=== PATIENT | female | born 1930 | race Caucasian/White ===

== ENCOUNTER 2017-10-15 18:21 | Inpatient (IN) | payer OTHER, MEDICARE ==
[2017-10-15] VITALS (14 sets, daily range): BP systolic 123–213; BP diastolic 60–123; PULSE 44–64; RESP 18–22; TEMP 89.9–95.5; O2SAT 91–100
[~2017-10-15] VITALS: Ht 154.9 cm; Wt 97.8 kg
[~2017-10-15 18:21] MED LIST: AMLO5TAB22 PO; ATEN-102 PO; ENOX40P SQ; LISI-363 PO; LORTA5 PO; Z.0.WALKERFRONT
[2017-10-15] MEDS ORDERED: SODIUM CHLORIDE 0.9% FLUSH 10 ML FLUSH IV FLUSH PRN ×2 (18:30→19:45)
[2017-10-15] MEDS ORDERED: LISI40TA PO (18:43)
[2017-10-15] MEDS ORDERED: AMLO5TAB2 PO (18:43)
[2017-10-15] MEDS ORDERED: ATEN25TA PO (18:43)
[2017-10-15 18:48] LABS: AUTOMATED NEUTROPHIL # 6.7 TH/MM3 (1.8-7.7); BASOPHIL % 0.3 % (0.0-2.0); EOSINOPHIL # 0.1 TH/MM3 (0-0.4); EOSINOPHIL % 0.6 % (0.0-4.0); HEMATOCRIT 42.8 % (35.0-46.0); HEMO FLAGS DIFF FINAL; LYMPH % 18.6 % (9.0-44.0); LYMPHOCYTE # 1.7 TH/MM3 (1.0-4.8); MEAN CELL VOLUME 87.1 FL (80.0-100.0); MEAN CORPUSCULAR HEMOGLOBIN 27.9 PG (27.0-34.0); MONO % 5.7 % (0.0-8.0); NEUT % 74.8 % (16.0-70.0); PLATELET COUNT 259 TH/MM3 (150-450); RED BLOOD COUNT 4.91 MIL/MM3 (4.00-5.30); RED CELL DISTRIBUTION WIDTH 14.1 % (11.6-17.2)
[2017-10-15 18:55] LABS: CHLORIDE 88 MEQ/L (98-107); POTASSIUM 4.2 MEQ/L (3.5-5.1); SODIUM (NA) 125 MEQ/L (136-145)
[2017-10-15 18:59] LABS: ANION GAP 14 MEQ/L (5-15); BICARBONATE 22.7 MEQ/L (21.0-32.0)
[2017-10-15 19:00] LABS: BLOOD UREA NITROGEN 22 MG/DL (7-18)
[2017-10-15 19:02] LABS: ALT (GPT) 32 U/L (10-53); AST (GOT) 35 U/L (15-37)
--- NOTE | 2017-10-15 19:02 | PD ---
HPI Chief Complaint: Seizure Time Seen by Provider: 18:25 Travel History International Travel<30 days: No Contact w/Intl Traveler<30days: No Traveled to known affect area: No History of Present Illness HPI 87-year-old female was found seizing by her family members who called 911. By the time paramedics arrived the seizure had stopped and patient was unconscious with a GCS of 3. As per the family's description it sounded like a generalized tonic-clonic seizure. Patient does not have history of seizures. Her mental status started to improve on route. When she arrived to the ER she was a GCS of 13. Vital signs were otherwise stable. Blood sugar was 145 as per EMS. Patient is not a reliable historian at this point. There are no family members currently to give additional history. Patient is on blood pressure medications. [facility] Past Medical History Narrative Medical List of her past medical, surgical, social and family history is reviewed from the nursing note. Arthritis: Yes Asthma: No Anxiety: Yes Depression: Yes Cancer: No Cardiovascular Problems: Yes (CHF) High Cholesterol: Yes Chemotherapy: No Chest Pain: No COPD: No Cerebrovascular Accident: No Dementia: Yes Diminished Hearing: Yes Endocrine: No Genitourinary: No Hypertension: Yes Immune Disorder: No Neurologic: Yes (DEMENTIA, SCHIZOPHRENIA, DEPRESSION) Psychiatric: Yes Reproductive: No Respiratory: Yes (shortness of breath) Migraines: No Radiation Therapy: No Schizophrenia: Yes Sleep Apnea: No Menopausal: Yes Past Surgical History Abdominal Surgery: Yes (APPENDECTOMY, CHOLECYSTECTOMY) AICD: No Appendectomy: Yes Arteriovenous Shunt: No Cholecystectomy: Yes Ear Surgery: No Endocrine Surgery: No Eye Surgery: No Genitourinary Surgery: No Gynecologic Surgery: No Insulin Pump: No Joint Replacement: Yes (bilateral knee ) Oral Surgery: No Pacemaker: No Social History Alcohol Use: Yes (WINE DAILY) Tobacco Use: No Substance Use: No Allergies-Medications (Allergen,Severity, Reaction): Coded Allergies: chlorpromazine (Unverified Allergy, Mild, 10/15/17) Comments List of allergies reviewed from the nursing note. Reported Meds & Prescriptions Reported Meds & Active Scripts Active Reported Atenolol 25 Mg Tab 12.5 Mg PO DAILY Amlodipine (Amlodipine Besylate) 5 Mg Tab 5 Mg PO DAILY Narrative Medication List of her home medications reviewed from the nursing note. Review of Systems ROS Limitations: Altered Mental Status Except as stated in HPI: all other systems reviewed are Neg Physical Exam Narrative GENERAL: Confused, garbled speech, anxious, mild distress, hard of hearing SKIN: Focused skin assessment warm/dry. HEAD: Atraumatic. Normocephalic. EYES: Pupils equal and round. No scleral icterus. No injection or drainage. ENT: No nasal bleeding or discharge. Mucous membranes pink and moist. NECK: Trachea midline. No JVD. CARDIOVASCULAR: Regular rate and rhythm. No murmur appreciated. RESPIRATORY: No accessory muscle use. Clear to auscultation. Breath sounds equal bilaterally. GASTROINTESTINAL: Abdomen soft, non-tender, nondistended. Hepatic and splenic margins not palpable. MUSCULOSKELETAL: No obvious deformities. No clubbing. No cyanosis. No edema. NEUROLOGICAL: GCS of 13, garbled speech but following commands, unable to move bilateral lower extremities. PSYCHIATRIC: Appropriate mood and affect; insight and judgment normal. Data Data Orders Orders Electrocardiogram (10/15/17 18:25) Complete Blood Count With Diff (10/15/17 18:25) Comprehensive Metabolic Panel (10/15/17 18:25) Creatine Kinase (Cpk) (10/15/17 18:25) Prothrombin Time / Inr (Pt) (10/15/17 18:25) Troponin I (10/15/17 18:25) Thyroid Stimulating Hormone (10/15/17 18:25) Urinalysis - C+S If Indicated (10/15/17 18:25) Blood Glucose (10/15/17 18:25) Ecg Monitoring (10/15/17 18:25) Iv Access Insert/Monitor (10/15/17 18:25) Oximetry (10/15/17 18:25) Sodium Chloride 0.9% Flush (Ns Flush) (10/15/17 18:30) Drug Screen, Random Urine (10/15/17 18:25) Alcohol (Ethanol) (10/15/17 18:25) Ct Brain W/O Iv Contrast(Rout) (10/15/17 ) Urinary Catheter Insert/Apply (10/15/17 18:25) Blood Culture (10/15/17 19:05) Lactic Acid (10/15/17 19:05) Piperacil-Tazo 4.5 Gm Premix (Zosyn 4.5 (10/15/17 19:15) Vancomycin Inj (Vancomycin Inj) (10/15/17 19:15) Sodium Chlor 0.9% 1000 Ml Inj (Ns 1000 M (10/15/17 19:15) Diphenhydramine Inj (Benadryl Inj) (10/15/17 19:45) Methylprednisolone So Succ Inj (Solumedr (10/15/17 19:45) Famotidine Inj (Pepcid Inj) (10/15/17 19:45) Sodium Chloride 0.9% Flush (Ns Flush) (10/15/17 19:45) Chest, Single Ap (10/15/17 ) Free Thyroxine (T4) (10/15/17 20:00) Free T3 (10/15/17 20:00) Admit Order (Ed Use Only) (10/15/17 ) Real Time Analyst / Telemetry JENNIFER.Q8H (10/15/17 20:23) Activity Oob With Assistance (10/15/17 20:23) Notify Dr: Other (10/15/17 20:23) Act Partial Throm Time (Ptt) (10/15/17 18:30) Magnesium (Mg) (10/15/17 18:30) Labs Laboratory Tests Test 10/15/17 18:30 10/15/17 19:00 10/15/17 19:41 White Blood Count 9.0 TH/MM3 Red Blood Count 4.91 MIL/MM3 Hemoglobin 13.7 GM/DL Hematocrit 42.8 % Mean Corpuscular Volume 87.1 FL Mean Corpuscular Hemoglobin 27.9 PG Mean Corpuscular Hemoglobin Concent 32.0 % Red Cell Distribution Width 14.1 % Platelet Count 259 TH/MM3 Mean Platelet Volume 7.0 FL Neutrophils (%) (Auto) 74.8 % Lymphocytes (%) (Auto) 18.6 % Monocytes (%) (Auto) 5.7 % Eosinophils (%) (Auto) 0.6 % Basophils (%) (Auto) 0.3 % Neutrophils # (Auto) 6.7 TH/MM3 Lymphocytes # (Auto) 1.7 TH/MM3 Monocytes # (Auto) 0.5 TH/MM3 Eosinophils # (Auto) 0.1 TH/MM3 Basophils # (Auto) 0.0 TH/MM3 CBC Comment DIFF FINAL Differential Comment Prothrombin Time 10.0 SEC Prothromb Time International Ratio 1.0 RATIO Activated Partial Thromboplast Time 36.6 SEC Blood Urea Nitrogen 22 MG/DL Creatinine 1.10 MG/DL Random Glucose 135 MG/DL Total Protein 7.6 GM/DL Albumin 3.3 GM/DL Calcium Level 9.6 MG/DL Magnesium Level 2.1 MG/DL Alkaline Phosphatase 71 U/L Aspartate Amino Transf (AST/SGOT) 35 U/L Alanine Aminotransferase (ALT/SGPT) 32 U/L Total Bilirubin 0.3 MG/DL Sodium Level 125 MEQ/L Potassium Level 4.2 MEQ/L Chloride Level 88 MEQ/L Carbon Dioxide Level 22.7 MEQ/L Anion Gap 14 MEQ/L Estimat Glomerular Filtration Rate 47 ML/MIN Total Creatine Kinase 114 U/L Troponin I LESS THAN 0.02 NG/ML Free Thyroxine 1.06 NG/DL Free Triiodothyronine (T3) pg/dL 1.79 PG/ML Thyroid Stimulating Hormone 3rd Gen 12.400 uIU/ML Ethyl Alcohol Level LESS THAN 3 MG/DL Urine Color YELLOW Urine Turbidity CLEAR Urine pH 6.0 Urine Specific [place] 1.014 Urine Protein 100 mg/dL Urine Glucose (UA) NEG mg/dL Urine Ketones NEG mg/dL Urine Occult Blood TRACE Urine Nitrite NEG Urine Bilirubin NEG Urine Leukocyte Esterase NEG Urine RBC 3-5 /hpf Urine WBC 0-2 /hpf Urine Squamous Epithelial Cells 6-8 /hpf Urine Amorphous Sediment FEW Urine Bacteria FEW /hpf Microscopic Urinalysis Comment CULT NOT INDICATED Urine Opiates Screen NEG Urine Barbiturates Screen NEG Urine Amphetamines Screen NEG Urine Benzodiazepines Screen NEG Urine Cocaine Screen NEG Urine Cannabinoids Screen NEG Lactic Acid Level 2.0 mmol/L [facility] Medical Decision Making Medical Screen Exam Complete: Yes Emergency Medical Condition: Yes Medical Record Reviewed: Yes Differential Diagnosis Twelve-lead EKG was reviewed by me. Normal sinus rhythm, normal axis, nonspecific ST-T wave changes. Heart rate of 66 bpm. Narrative Course 7:02 PM CBC is within normal limit. Patient has hyponatremia. Rest of the chemistry is pending. Ordered a CT scan of her head which is pending. Because patient had vomited at the scene and there is a risk of aspiration of ordered a chest x-ray as well. Case will be signed over to the oncoming ER physician. Procedures EKG Prior to Arrival: Yes Scripts Levothyroxine (Synthroid) 100 Mcg Tab 100 MCG PO DAILY@0600 for Thyroid Supplement, #30 TAB Prov: Alejandro Pérez MD 10/18/17 Sodium Chloride (Sodium Chloride) 1 Gram Tab 1 GM PO BID for Electrolyte Replacement, #60 TAB Prov: Alejandro Pérez MD 10/18/17 Navarro Grande MD Oct 15, 2017 19:02
[2017-10-15 19:03] LABS: GLOMERULAR FILTRATION RATE 47 ML/MIN (>89)
[2017-10-15 19:04] LABS: TOTAL BILIRUBIN ADULT 0.3 MG/DL (0.2-1.0)
[2017-10-15 19:05] LABS: ALKALINE PHOSPHATASE 71 U/L (45-117); CREATINE KINASE 114 U/L (26-192)
--- NOTE | 2017-10-15 19:13 | PD ---
Physical Exam Date Seen by Provider: Oct 15, 2017 Time Seen by Provider: 19:13 Narrative accepted in transfer of from Dr Grande GENERAL: Well-developed well-nourished elderly female in no acute distress no respiratory distress resting supine*: GCS 14--daughter bedside reports this is her normal mentation SKIN: Warm and dry. Very stages of ecchymosis and minor skin tears HEAD: Atraumatic. Normocephalic. EYES: Pupils equal and round. Extraocular muscles intact. No scleral icterus. No injection or drainage. ENT: No nasal bleeding or discharge. Mucous membranes pink and moist. Tonsillar edema with bruising bilaterally upper denture present lower dentition intact. Airway is patent. NECK: Trachea midline. No JVD. Supple. No meningismus. CARDIOVASCULAR: Regular rate and rhythm. RESPIRATORY: No accessory muscle use. Clear to auscultation. Breath sounds equal bilaterally. GASTROINTESTINAL: Abdomen soft, non-tender, nondistended. Hepatic and splenic margins not palpable. MUSCULOSKELETAL: Extremities without clubbing, cyanosis, or edema. No obvious deformities. NEUROLOGICAL: Awake and alert. GCS 14 (baseline per daughter). No obvious cranial nerve deficits. Motor grossly within normal limits. Five out of 5 muscle strength in the arms and legs. No pronator drift. Mild slurring of speech associated with tongue edema speech. PSYCHIATRIC: Appropriate mood and affect; insight and judgment normal. Data Data Last Documented VS Vital Signs Date Time Temp Pulse Resp B/P (MAP) Pulse Ox O2 Delivery O2 Flow Rate FiO2 10/15/17 20:15 62 22 137/70 (92) 100 Room Air 10/15/17 19:45 90.3 Orders Orders Electrocardiogram (10/15/17 18:25) Complete Blood Count With Diff (10/15/17 18:25) Comprehensive Metabolic Panel (10/15/17 18:) Creatine Kinase (Cpk) (10/15/17 18:25) Prothrombin Time / Inr (Pt) (10/15/17 18:) Troponin I (10/15/17 18:) Thyroid Stimulating Hormone (10/15/17 18:) Urinalysis - C+S If Indicated (10/15/17 18:25) Blood Glucose (10/15/17 18:25) Ecg Monitoring (10/15/17 18:) Iv Access Insert/Monitor (10/15/17 18:25) Oximetry (10/15/17 18:25) Sodium Chloride 0.9% Flush (Ns Flush) (10/15/17 18:30) Drug Screen, Random Urine (10/15/17 18:25) Alcohol (Ethanol) (10/15/17 18:25) Ct Brain W/O Iv Contrast(Rout) (10/15/17 ) Urinary Catheter Insert/Apply (10/15/17 18:25) Blood Culture (10/15/17 19:05) Lactic Acid (10/15/17 19:05) Piperacil-Tazo 4.5 Gm Premix (Zosyn 4.5 (10/15/17 19:15) Vancomycin Inj (Vancomycin Inj) (10/15/17 19:15) Sodium Chlor 0.9% 1000 Ml Inj (Ns 1000 M (10/15/17 19:15) Diphenhydramine Inj (Benadryl Inj) (10/15/17 19:45) Methylprednisolone So Succ Inj (Solumedr (10/15/17 19:45) Famotidine Inj (Pepcid Inj) (10/15/17 19:45) Sodium Chloride 0.9% Flush (Ns Flush) (10/15/17 19:45) Chest, Single Ap (10/15/17 ) Free Thyroxine (T4) (10/15/17 20:00) Free T3 (10/15/17 20:00) Admit Order (Ed Use Only) (10/15/17 ) Tie Binder / Telemetry JENNIFER.Q8H (10/15/17 20:23) Activity Oob With Assistance (10/15/17 20:23) Notify Dr: Other (10/15/17 20:23) Act Partial Throm Time (Ptt) (10/15/17 18:30) Magnesium (Mg) (10/15/17 18:30) Labs Laboratory Tests Test 10/15/17 18:30 10/15/17 19:00 10/15/17 19:41 White Blood Count 9.0 TH/MM3 Red Blood Count 4.91 MIL/MM3 Hemoglobin 13.7 GM/DL Hematocrit 42.8 % Mean Corpuscular Volume 87.1 FL Mean Corpuscular Hemoglobin 27.9 PG Mean Corpuscular Hemoglobin Concent 32.0 % Red Cell Distribution Width 14.1 % Platelet Count 259 TH/MM3 Mean Platelet Volume 7.0 FL Neutrophils (%) (Auto) 74.8 % Lymphocytes (%) (Auto) 18.6 % Monocytes (%) (Auto) 5.7 % Eosinophils (%) (Auto) 0.6 % Basophils (%) (Auto) 0.3 % Neutrophils # (Auto) 6.7 TH/MM3 Lymphocytes # (Auto) 1.7 TH/MM3 Monocytes # (Auto) 0.5 TH/MM3 Eosinophils # (Auto) 0.1 TH/MM3 Basophils # (Auto) 0.0 TH/MM3 CBC Comment DIFF FINAL Differential Comment Prothrombin Time 10.0 SEC Prothromb Time International Ratio 1.0 RATIO Activated Partial Thromboplast Time 36.6 SEC Blood Urea Nitrogen 22 MG/DL Creatinine 1.10 MG/DL Random Glucose 135 MG/DL Total Protein 7.6 GM/DL Albumin 3.3 GM/DL Calcium Level 9.6 MG/DL Magnesium Level 2.1 MG/DL Alkaline Phosphatase 71 U/L Aspartate Amino Transf (AST/SGOT) 35 U/L Alanine Aminotransferase (ALT/SGPT) 32 U/L Total Bilirubin 0.3 MG/DL Sodium Level 125 MEQ/L Potassium Level 4.2 MEQ/L Chloride Level 88 MEQ/L Carbon Dioxide Level 22.7 MEQ/L Anion Gap 14 MEQ/L Estimat Glomerular Filtration Rate 47 ML/MIN Total Creatine Kinase 114 U/L Troponin I LESS THAN 0.02 NG/ML Free Thyroxine 1.06 NG/DL Free Triiodothyronine (T3) pg/dL 1.79 PG/ML Thyroid Stimulating Hormone 3rd Gen 12.400 uIU/ML Ethyl Alcohol Level LESS THAN 3 MG/DL Urine Color YELLOW Urine Turbidity CLEAR Urine pH 6.0 Urine Specific [place] 1.014 Urine Protein 100 mg/dL Urine Glucose (UA) NEG mg/dL Urine Ketones NEG mg/dL Urine Occult Blood TRACE Urine Nitrite NEG Urine Bilirubin NEG Urine Leukocyte Esterase NEG Urine RBC 3-5 /hpf Urine WBC 0-2 /hpf Urine Squamous Epithelial Cells 6-8 /hpf Urine Amorphous Sediment FEW Urine Bacteria FEW /hpf Microscopic Urinalysis Comment CULT NOT INDICATED Urine Opiates Screen NEG Urine Barbiturates Screen NEG Urine Amphetamines Screen NEG Urine Benzodiazepines Screen NEG Urine Cocaine Screen NEG Urine Cannabinoids Screen NEG Lactic Acid Level 2.0 mmol/L [facility] Medical Record Reviewed: Yes Supervised Visit with RICKIE: No Interpretation(s) EKG: Normal sinus rhythm rate [address] elevation injury pattern or ectopy noted normal axis and intervals present. tsh: 12.400, elevated uds: negative alcohol: less than 3, not elevated ua: wnl Last Impressions Head CT 10/15/17 0000 Signed Impressions: Service Date/Time: Sunday, October 15, 2017 18:38 - CONCLUSION: 1. No acute intracranial abnormalities. Remote lacunar infarct left basal ganglia. Sharad Alvarado MD Chest X-Ray 10/15/17 0000 Signed Impressions: Service Date/Time: Sunday, October 15, 2017 19:57 - CONCLUSION: 1. Minimal basilar dependent atelectasis. No effusion. Sharad Alvarado MD CBC & BMP Diagram 10/15/17 18:30 Total Protein 7.6, Albumin 3.3 L, Calcium Level 9.6, Alkaline Phosphatase 71, Aspartate Amino Transf (AST/SGOT) 35, Alanine Aminotransferase (ALT/SGPT) 32, Total Bilirubin 0.3 Vital Signs Date Time Temp Pulse Resp B/P (MAP) Pulse Ox O2 Delivery O2 Flow Rate FiO2 10/15/17 18:30 58 91 10/15/17 18:30 91 Room Air 10/15/17 18:30 90.0 58 20 213/68 (116) 91 Differential Diagnosis accepted in transfer of from Dr Grande; please refer to her dictation Narrative Course accepted in transfer of from Dr Grande; for follow up on pending diagnostics and disposition with planned admission @ 19:22 BP: 185/72. Patient noted to have marked severe swelling of the tongue with bruising bilaterally and edema left greater than right without laceration. CT brain noncontrast reveals no acute process. CBC is automated differential values in normal range. EKG is reviewed by il sinus rhythm rate [address] elevation injury pattern or ectopy noted artifact is present at baseline. Remainder of labs pending. Daughter present at bedside. Daughter reports that she estimates the seizure duration possibly a few minutes in duration she is not certain symptoms began and then she had time to go next 2 to neighboring come back with the assistance of the neighbor to lie her on the floor and patient still having seizure-form activity which stopped shortly thereafter and had ceased prior to arrival of EMS. Daughter confirms patient has baseline confusion, history of hypertension, history of schizophrenia; she has not been ill recently. Today around 1 PM she complained of some stomach upset but according to daughter there is been no complaint of headache confusion visual disturbance difficulty with speech or swallowing fever chills nausea vomiting chest pain shortness of breath cough congestion diarrheal illness flank pain or urinary symptoms. There is been no fall or injury. Last visit to her primary care provider was one month ago for complaint of chronic right lower extremity pain which she has had since injury to the right lower extremity or urinary half ago. Patient is walker dependent. Patient eyes has some mild weakness to the right lower extremity. Patient with significant soft tissue swelling of the tongue left side greater than right side with bilateral ecchymosis. Concerning for some angioedema which may be BLANCA inhibitor related as well as trauma related patient remains hypertensive but blood pressure is normalizing at this time epinephrine is not indicated however patient is administered Solu-Medrol 125 mg IV, Benadryl 12.5 mg IV, and Pepcid 20 mg IV. Patient's labs have been resulted patient identified to have mild hyponatremia of 125 renal insufficiency bun/cr 22/1.10 gfr 47 with abnormal thyroid function TSH 12.400 with no prior history of hypothyroidism presents with hypothermia rectal exam 90F and new onset seizure form activity witnessed by family with tonic-clonic movement and loss of consciousness with GCS of 3 per EMS upon their arrival with progressively improving level of consciousness back to baseline of 14 here patient is identified to have marked swelling of the left side of the tongue but posterior pharynx is visible and no posterior pharyngeal edema no uvular edema no stridor no hoarseness with O2 saturations on room air of 99%. CBC was automated differential values are in normal range except for neutrophils of 74% nonspecific however patient has a normal lactic acid as well as normal bicarbonate and anion gap; no erin metabolic disturbance. Patient's EKG identifies no acute abnormality and cardiac enzymes first set are found to be in normal range with CK 114 and troponin I less than 0.02, patient's serum alcohol is less than 3, not elevated patient does drink alcohol 2-3 times as a one-time drink at bedtime per week did not have alcohol this evening and also has a negative tox screen. Patient's presentation is concerning for an element of hypothyroidism concern for myxedema. T4 and T3 are pending here patient's chest x-ray reveals no lobar infiltrate unfolding of the aorta and basilar atelectasis identified per reading radiologist. Patient complains of shortness of breath. Patient is currently undergoing rewarming slowly. Patient accepted for admission to ICU by Dr Ferguson -- [facility] @ 22:30 circuit recorder notified of episodes of bradycardia with stable BP but also episodes of desaturating when falling asleep --probable sleep apnea and also added obstruction of post traumatic tongue edema/angioedema -that has not worsened -- rec defer intubation at this time and transfer patient unless acute change. Critical Care Narrative Aggregate critical care time was 35 minutes. Time to perform other separately billable procedures was not included in the critical care time. My time did not include minutes spent treating any other patients simultaneously or on activities that did not directly contribute to the patient's treatment. The services I provided to this patient were to treat and/or prevent clinically significant deterioration that could result in: Respiratory failure, arrhythmia , I provided critical care services requiring my management, as noted below: Chart data review, documentation time, medication orders and management, vital sign assessments/reviewing monitor data, ordering and reviewing lab tests, ordering and interpreting/reviewing x-rays and diagnostic studies, care of the patient and discussion of the patient with the admitting physicians. Physician Communication Physician Communication @ 8:10 call placed to circuit recorder - "in a procedure"; call back discussed with Dr Ferguson -accepted to intensivists service Diagnosis Primary Impression: First time seizure Additional Impressions: Hypothermia Hypothyroidism Tongue edema Admitting Information Admitting Physician Requests: Admit Alley Mccurdy MD Oct 15, 2017 19:13
[2017-10-15] MEDS ORDERED: VANCOMYCIN INJ 1,000 MG in SODIUM CHLOR 0.9% 250 ML INJ 250 ML IV ONE (19:15)
[2017-10-15] MEDS ORDERED: PIPERACIL-TAZO 4.5 GM PREMIX 100 ML IV ONE (19:15)
[2017-10-15] MEDS ORDERED: SODIUM CHLOR 0.9% 1000 ML INJ 1,000 ML IV ONE (19:15)
--- NOTE | 2017-10-15 19:15 | RADRPT ---
EXAM DATE/TIME: 10/15/2017 18:38 [facility] COMPARISON: No previous studies available for comparison. INDICATIONS : Altered mental status. RADIATION DOSE: 62.64 CTDIvol (mGy) MEDICAL HISTORY : Dementia. Hypertension. SURGICAL HISTORY : None. ENCOUNTER: Initial ACUITY: 1 day PAIN SCALE: Non-responsive LOCATION: cranial TECHNIQUE: Multiple contiguous axial images were obtained of the head. Using automated exposure control and adj ustment of the mA and/or kV according to patient size, radiation dose was kept as low as reasonably a chievable to obtain optimal diagnostic quality images. DICOM format image data is available electro nically for review and comparison. FINDINGS: CEREBRUM: The ventricles are normal for age. No evidence of midline shift, mass lesion, hemorrhage or acute in farction. No extra-axial fluid collections are seen. POSTERIOR FOSSA: The cerebellum and brainstem are intact. The 4th ventricle is midline. The cerebellopontine angle i s unremarkable. EXTRACRANIAL: The visualized portion of the orbits is intact. SKULL: The calvaria is intact. No evidence of skull fracture. CONCLUSION: 1. No acute intracranial abnormalities. Remote lacunar infarct left basal ganglia. Sharad Alvarado MD on October 15, 2017 at 19:09 Board Certified Radiologist. This report was verified electronically.
[2017-10-15 19:27] LABS: ALCOHOL LESS THAN 3 MG/DL (0-5)
[2017-10-15 19:38] LABS: BLOOD, URINE TRACE (NEG); GLUCOSE,URINE NEG (NEG); KETONE, URINE NEG (NEG); NITRITE,URINE NEG (NEG)
[2017-10-15] MEDS ORDERED: FAMOTIDINE 20 MG/2 ML VIAL IV PUSH ONE (19:45)
[2017-10-15] MEDS ORDERED: methylPREDNISolone SOD SUCC 125 MG/2 ML VIAL IV PUSH ONE (19:45)
[2017-10-15] MEDS ORDERED: diphenhydrAMINE HCL 50 MG/ML VIAL IVP ONE (19:45)
[2017-10-15 19:53] LABS: URINE COLOR YELLOW (YELLW/STRAW); WBC, URINE 0-2 /hpf (0-5)
[2017-10-15 19:54] LABS: BACTERIA, URINE FEW /hpf; COMMENT (UR) CULT NOT INDICATED; CULTURE IF INDICATED CULT NOT INDICATED
--- NOTE | 2017-10-15 20:27 | RADRPT ---
EXAM DATE/TIME: 10/15/2017 19:57 [facility] COMPARISON: CHEST SINGLE AP, January 04, 2016, 16:30. INDICATIONS : Short of breath. MEDICAL HISTORY : None. SURGICAL HISTORY : None. ENCOUNTER: Initial ACUITY: 1 day PAIN SCORE: 2/10 LOCATION: Bilateral chest FINDINGS: A single view of the chest demonstrates minimal basilar dependent atelectasis. Tortuous aorta. No eff usion. No pneumothorax. CONCLUSION: 1. Minimal basilar dependent atelectasis. No effusion. Sharad Alvarado MD on October 15, 2017 at 20:24 Board Certified Radiologist. This report was verified electronically.
[2017-10-15] MEDS ORDERED: FOSPHENYTOIN INJ 1,000 MGPE in SODIUM CHLORIDE 0.9% INJ 50 ML IV ONE (20:45)
[2017-10-15 21:30] LABS: APTT (PATIENT) 36.6 SEC (24.3-30.1)
[2017-10-15 21:58] LABS: MAGNESIUM 2.1 MG/DL (1.5-2.5)
[2017-10-15 22:23] LABS: FREE T3 1.79 PG/ML (2.18-3.98); FREE T4 1.06 NG/DL (0.76-1.46)
[2017-10-16] VITALS (12 sets, daily range): BP systolic 97–132; BP diastolic 53–66; PULSE 45–71; RESP 15–24; TEMP 93.6–98.9; O2SAT 94–100
[2017-10-16] MEDS ORDERED: CHLORHEXIDINE GLUCONATE 2 % 1 PACK (2 CLOTHS) TOP PRN (02:30)
[2017-10-16] MEDS ORDERED: ZOLPIDEM TARTRATE 5 MG TAB PO PRN (02:30)
[2017-10-16] MEDS ORDERED: ONDANSETRON HCL 4 MG/2 ML VIAL IV PUSH PRN (02:30)
[2017-10-16] MEDS ORDERED: SENNOSIDES 8.6 MG TAB PO PRN (02:30)
[2017-10-16] MEDS ORDERED: BISACODYL 10 MG SUPP RECTAL PRN (02:30)
[2017-10-16] MEDS ORDERED: LACTULOSE SYRUP 20 GM/30 ML CUP PO PRN (02:30)
[2017-10-16] MEDS ORDERED: SODIUM CHLORIDE 0.9% FLUSH 10 ML FLUSH IV FLUSH PRN (02:30)
[2017-10-16] MEDS ORDERED: RESP: ALBUTEROL 2.5 MG/IPRATROPIUM 0.5 MG NEB (PRN) INH (02:30)
[2017-10-16] MEDS ORDERED: MAGNESIUM HYDROXIDE SUSP 30 ML CUP PO PRN (02:30)
[2017-10-16] MEDS ORDERED: ACETAMINOPHEN 325 MG TAB PO PRN (02:30)
[2017-10-16] MEDS ORDERED: MISCELLANEOUS NURSING INFORMATION XX SCH (02:30)
[2017-10-16] MEDS ORDERED: SODIUM CHLOR 0.9% 1000 ML INJ 1,000 ML IV ONE (02:45)
[2017-10-16] MEDS: SODIUM CHLOR 0.9% 1000 ML INJ 1,000 ML IV SCH ×2 (04:00→21:01)
[2017-10-16] MEDS: CHLORHEXIDINE GLUCONATE 2 % 1 PACK (2 CLOTHS) TOP SCH (04:00)
--- NOTE | 2017-10-16 04:23 | HHI.HP ---
HPI Service Critical Care Medicine Primary Care Physician Raul Cooper M.D. Admission Diagnosis new onset seizure; hypothermia; traumatic angioed; abn thyroid Diagnosis: Travel History International Travel<30 Days: No Contact w/Intl Traveler <30 Da: No Traveled to Known Affected Are: No History of Present Illness 87-year-old female was found seizing by her family members who called 911. By the time paramedics arrived the seizure had stopped and patient was unconscious with a GCS of 3. As per the family's description it sounded like a generalized tonic-clonic seizure. Patient does not have history of seizures. Her mental status started to improve on route. When she arrived to the ER she was a GCS of 13. Vital signs were otherwise stable. Blood sugar was 145 as per EMS. Patient is not a reliable historian at this point. There are no family members currently to give additional history. Patient is on blood pressure medications. Review of Systems ROS Unobtainable due to altered mental status Past Family Social History Allergies: Coded Allergies: chlorpromazine (Unverified Allergy, Mild, 10/15/17) Past Medical History Hypertension Schizophrenia Osteoarthritis Past Surgical History Bilateral knee replacements Cholecystectomy Appendectomy Reported Medications Reported Meds & Active Scripts Active Reported Lisinopril 40 Mg Tab 40 Mg PO DAILY Atenolol 25 Mg Tab 12.5 Mg PO DAILY Amlodipine (Amlodipine Besylate) 5 Mg Tab 5 Mg PO DAILY Active Ordered Medications Current Medications Medications (Trade) Dose Ordered Sig/Rosita Route PRN Reason Start Time Stop Time Status Last Admin Dose Admin Amlodipine Besylate (Norvasc) 5 mg DAILY PO 10/16/17 09:00 Atenolol (Tenormin) 12.5 mg DAILY PO 10/16/17 09:00 Lisinopril (Prinivil) 40 mg DAILY PO 10/16/17 09:00 Sodium Chloride 1,000 ml @ 84 mls/hr [id number] IV 10/16/17 02:28 10/16/17 04:00 Sodium Chloride (NS Flush) 2 ml UNSCH PRN IV FLUSH FLUSH AFTER USING IV ACCESS 10/16/17 02:30 Sodium Chloride (NS Flush) 2 ml BID IV FLUSH 10/16/17 09:00 Acetaminophen (Tylenol) 650 mg Q6H PRN PO PAIN 1-10 AND/OR FEVER >101F 10/16/17 02:30 Famotidine (Pepcid Inj) 10 mg Q12HR IV PUSH 10/16/17 09:00 Ondansetron HCl (Zofran Inj) 4 mg Q6H PRN IV PUSH NAUSEA OR VOMITING 10/16/17 02:30 Zolpidem Tartrate (Ambien) 5 mg HS PRN PO INSOMNIA 10/16/17 02:30 Albuterol/ Ipratropium (Duoneb Neb) 1 ampule Q2HR NEB PRN INH WHEEZING 10/16/17 02:30 Heparin Sodium (Porcine) (Heparin Inj) 5,000 units Q12H SQ 10/16/17 09:00 Miscellaneous Information 1 Q361D XX 10/16/17 02:30 Chlorhexidine Gluconate (Chlorhexidine 2% Cloth) 3 pack Taper DAILY@04 TOP 10/16/17 04:00 10/12/18 03:59 Chlorhexidine Gluconate (Chlorhexidine 2% Cloth) 3 pack UNSCH PRN TOP HYGIENIC CARE 10/16/17 02:30 Senna/Docusate Sodium (Mariann-Colace) 1 tab BID PO 10/16/17 09:00 Magnesium Hydroxide (Milk Of Magnesia Liq) 30 ml Q12H PRN PO Mild constipation 10/16/17 02:30 Sennosides (Senokot) 17.2 mg Q12H PRN PO Moderate constipation 10/16/17 02:30 Bisacodyl (Dulcolax Supp) 10 mg DAILY PRN RECTAL SEVERE CONSITIPATION 10/16/17 02:30 Lactulose (Lactulose Liq) 30 ml DAILY PRN PO SEVERE CONSITIPATION 10/16/17 02:30 Family History The patient's mother had CHF. Social History The patient quit smoking over 20 years ago. She has 1 4 ounce glass of organic red wine daily. Physical Exam Vital Signs Vital Signs Date Time Temp Pulse Resp B/P (MAP) Pulse Ox O2 Delivery O2 Flow Rate FiO2 10/16/17 02:00 54 10/16/17 01:00 48 10/16/17 00:07 10/15/17 23:35 95.5 46 18 123/70 (87) 99 Nasal Cannula 2.00 10/15/17 23:05 94.1 50 18 147/67 (93) 98 Nasal Cannula 2.00 10/15/17 22:35 93.8 45 18 140/66 (90) 97 Nasal Cannula 2.00 10/15/17 22:05 93.9 44 18 123/62 (82) 97 Nasal Cannula 2.00 10/15/17 21:35 93.9 52 20 144/71 (95) 99 Room Air 10/15/17 21:05 92.1 48 20 129/60 (83) 98 Room Air 10/15/17 20:40 91.1 62 22 131/70 (90) 97 Room Air 10/15/17 20:15 62 22 137/70 (92) 100 Room Air 10/15/17 20:05 64 20 128/65 (86) 99 Room Air 10/15/17 19:45 90.3 10/15/17 19:35 64 20 185/72 (109) 99 Room Air 10/15/17 19:25 89.9 62 20 206/123 (150) 100 Room Air 10/15/17 19:20 62 20 97 10/15/17 19:05 90.6 58 22 206/123 (150) 99 Room Air 10/15/17 18:30 58 91 10/15/17 18:30 91 Room Air 10/15/17 18:30 90.0 58 20 213/68 (116) 91 Physical Exam GENERAL: Confused, garbled speech, anxious, mild distress, hard of hearing SKIN: Focused skin assessment warm/dry. HEAD: Atraumatic. Normocephalic. EYES: Pupils equal and round. No scleral icterus. No injection or drainage. ENT: No nasal bleeding or discharge. Mucous membranes pink and moist. NECK: Trachea midline. No JVD. CARDIOVASCULAR: Regular rate and rhythm. No murmur appreciated. RESPIRATORY: No accessory muscle use. Clear to auscultation. Breath sounds equal bilaterally. GASTROINTESTINAL: Abdomen soft, non-tender, nondistended. Hepatic and splenic margins not palpable. MUSCULOSKELETAL: No obvious deformities. No clubbing. No cyanosis. No edema. NEUROLOGICAL: GCS of 13, garbled speech but following commands, unable to move bilateral lower extremities. Laboratory Laboratory Tests Test 10/15/17 18:30 10/15/17 19:00 10/15/17 19:41 10/16/17 00:50 White Blood Count 9.0 Red Blood Count 4.91 Hemoglobin 13.7 Hematocrit 42.8 Mean Corpuscular Volume 87.1 Mean Corpuscular Hemoglobin 27.9 Mean Corpuscular Hemoglobin Concent 32.0 Red Cell Distribution Width 14.1 Platelet Count 259 Mean Platelet Volume 7.0 Neutrophils (%) (Auto) 74.8 Lymphocytes (%) (Auto) 18.6 Monocytes (%) (Auto) 5.7 Eosinophils (%) (Auto) 0.6 Basophils (%) (Auto) 0.3 Neutrophils # (Auto) 6.7 Lymphocytes # (Auto) 1.7 Monocytes # (Auto) 0.5 Eosinophils # (Auto) 0.1 Basophils # (Auto) 0.0 CBC Comment DIFF FINAL Differential Comment Prothrombin Time 10.0 Prothromb Time International Ratio 1.0 Activated Partial Thromboplast Time 36.6 Blood Urea Nitrogen 22 Creatinine 1.10 Random Glucose 135 Total Protein 7.6 Albumin 3.3 Calcium Level 9.6 Magnesium Level 2.1 Alkaline Phosphatase 71 Aspartate Amino Transf (AST/SGOT) 35 Alanine Aminotransferase (ALT/SGPT) 32 Total Bilirubin 0.3 Sodium Level 125 Potassium Level 4.2 Chloride Level 88 Carbon Dioxide Level 22.7 Anion Gap 14 Estimat Glomerular Filtration Rate 47 Total Creatine Kinase 114 Troponin I LESS THAN 0.02 Free Thyroxine 1.06 Free Triiodothyronine (T3) pg/dL 1.79 Thyroid Stimulating Hormone 3rd Gen 12.400 Ethyl Alcohol Level LESS THAN 3 Urine Color YELLOW Urine Turbidity CLEAR Urine pH 6.0 Urine Specific [place] 1.014 Urine Protein 100 Urine Glucose (UA) NEG Urine Ketones NEG Urine Occult Blood TRACE Urine Nitrite NEG Urine Bilirubin NEG Urine Leukocyte Esterase NEG Urine RBC 3-5 Urine WBC 0-2 Urine Squamous Epithelial Cells 6-8 Urine Amorphous Sediment FEW Urine Bacteria FEW Microscopic Urinalysis Comment CULT NOT INDICATED Urine Opiates Screen NEG Urine Barbiturates Screen NEG Urine Amphetamines Screen NEG Urine Benzodiazepines Screen NEG Urine Cocaine Screen NEG Urine Cannabinoids Screen NEG Lactic Acid Level 2.0 Date/Time Source Procedure Growth Status 10/15/17 19:50 Blood Peripheral Aerobic Blood Culture Pending Received 10/15/17 19:50 Blood Peripheral Anaerobic Blood Culture Pending Received Result Diagram: 10/15/17 1830 10/15/17 183 Septic Shock Reassessment Septic shock perfusion: reassessment completed Caprini VTE Risk Assessment Caprini VTE Risk Assessment: Mod/High Risk (score >= 2) Caprini Risk Assessment Model Point Value = 1 Point Value = 2 Point Value = 3 Point Value = 5 Age 41-60 Minor surgery BMI > 25 kg/m2 Swollen legs Varicose veins or History of unexplained or recurrent spontaneous Oral contraceptives or hormone replacement Sepsis (< 1 month) Serious lung disease, including pneumonia (< 1 month) Abnormal pulmonary function Acute myocardial infarction Congestive heart failure (< 1 month) History of inflammatory bowel disease Medical patient at bed rest Age 61-74 Arthroscopic surgery Major open surgery (> 45 min) Laparoscopic surgery (> 45 min) Malignancy Confined to bed (> 72 hours) Immobilizing plaster cast Central venous access Age >= 75 History of VTE Family history of VTE Factor V Leiden Prothrombin [id number] Lupus anticoagulant Anticardiolipin antibodies Elevated serum homocysteine Heparin-induced thrombocytopenia Other congenital or acquired thrombophilia Stroke (< 1 month) Elective arthroplasty Hip, pelvis, or leg fracture Acute spinal cord injury (< 1 month) Prophylaxis Regimen Total Risk Factor Score Risk Level Prophylaxis Regimen 0-1 Low Early ambulation 2 Moderate Order ONE of the following: *Sequential Compression Device (SCD) *Heparin 5000 units SQ BID 3-4 Higher Order ONE of the following medications: *Heparin 5000 units SQ TID *Enoxaparin/Lovenox 40 mg SQ daily (WT < 150 kg, CrCl > 30 mL/min) *Enoxaparin/Lovenox 30 mg SQ daily (WT < 150 kg, CrCl > 10-29 mL/min) *Enoxaparin/Lovenox 30 mg SQ BID (WT < 150 kg, CrCl > 30 mL/min) AND/OR *Sequential Compression Device (SCD) 5 or more Highest Order ONE of the following medications: *Heparin 5000 units SQ TID (Preferred with Epidurals) *Enoxaparin/Lovenox 40 mg SQ daily (WT < 150 kg, CrCl > 30 mL/min) *Enoxaparin/Lovenox 30 mg SQ daily (WT < 150 kg, CrCl > 10-29 mL/min) *Enoxaparin/Lovenox 30 mg SQ BID (WT < 150 kg, CrCl > 30 mL/min) AND *Sequential Compression Device (SCD) Assessment and Plan Assessment and Plan Seizure - Underlying hyponatremia - Corrects sodium level with IV replacement - Neurology evaluation - Seizure precaution - Ativan when necessary Hypertension - Continue home medication - Norvasc, lisinopril, atenolol Hyponatremia - Urine studies - TSH significantly elevated - Treat underlying Hypothyroidism - Levothyroxine IV until okay to swallow DVT GI prophylaxis - Teds SCDs - Subcutaneous heparin - Pepcid Critical Care: The total critical care time was 35 minutes. Time to perform other separately billable procedures was not included in the critical care time. David Ferguson MD Oct 16, 2017 04:23
[2017-10-16] MEDS: LEVOTHYROXINE SODIUM 100 MCG VIAL IV PUSH SCH (05:21)
[2017-10-16] MEDS: DOCUSATE SODIUM 50 MG/SENNA 8.6 MG TAB PO SCH ×2 (09:00→21:01)
[2017-10-16] MEDS: ATENOLOL 25 MG TAB PO SCH ×2 (12:00→12:26)
[2017-10-16] MEDS: LISINOPRIL 20 MG TAB PO SCH ×2 (12:00→12:26)
[2017-10-16] MEDS: amLODIPine BESYLATE 5 MG TAB PO SCH ×2 (12:00→12:26)
[2017-10-16] MEDS: SODIUM CHLORIDE 0.9% FLUSH 10 ML FLUSH IV FLUSH SCH ×2 (12:25→21:01)
[2017-10-16] MEDS: FAMOTIDINE 20 MG/2 ML VIAL IV PUSH SCH ×2 (12:26→21:00)
[2017-10-16] MEDS: HEPARIN SODIUM - SQ 10,000 UNITS/ML VIAL SQ SCH ×2 (12:27→21:01)
[2017-10-16 12:54] LABS: ALKALINE PHOSPHATASE 53 U/L (45-117); TOTAL BILIRUBIN ADULT 0.2 MG/DL (0.2-1.0)
[2017-10-16 12:57] LABS: ALT (GPT) 27 U/L (10-53); ANION GAP 6 MEQ/L (5-15); AST (GOT) 33 U/L (15-37); BICARBONATE 27.5 MEQ/L (21.0-32.0); BLOOD UREA NITROGEN 19 MG/DL (7-18); CHLORIDE 94 MEQ/L (98-107); GLOMERULAR FILTRATION RATE 50 ML/MIN (>89); MAGNESIUM 1.9 MG/DL (1.5-2.5); POTASSIUM 5.2 MEQ/L (3.5-5.1); SODIUM (NA) 127 MEQ/L (136-145)
--- NOTE | 2017-10-16 13:20 | MB ---
cc: ALTAGRACIA LOPES MD DATE OF CONSULTATION 10/16/2017 REASON FOR CONSULTATION Seizures HISTORY OF PRESENT ILLNESS Ms. Rose is an 87-year-old female who was reportedly found having a seizure by her family members. The patient lays in bed with her son at the bedside. He states that she is today at her normal baseline, but she reportedly had a seizure and when the EMS arrived, the seizure has stopped. This is the first seizure where her whole body started shaking. She bit her tongue. He is uncertain about loss of bowel or bladder control. She was reportedly in a state of postictal confusion and her mental status improved en route. Vital signs and blood sugar were within normal upon arrival. The patient admitted for further workup. Her son states that today she is at her baseline of cognitive and motor function and he states that she can carry a conversation sometimes with mild slurring of speech. She has a good sense of humor. No reported change of medication, head injury or stroke. REVIEW OF SYSTEMS A 12-point review of systems was negative except for what is stated in the HPI. PAST MEDICAL HISTORY 1. Hypertension 2. Schizophrenia 3. Osteoarthritis PAST SURGICAL HISTORY 1. Bilateral knee replacement 2. Cholecystectomy 3. Appendectomy ALLERGIES CHLORPROMAZINE MEDICATIONS 1. Lisinopril 2. Atenolol 3. Amlodipine FAMILY HISTORY Mother had congestive heart failure. SOCIAL HISTORY Former smoker, quit smoking 20 years ago. Drinks organic red wine. No illicit drug abuse. PHYSICAL EXAMINATION GENERAL: Awake, alert, pleasant, overweight. Her son is at the bedside. HEENT: Atraumatic, normocephalic. [id number]. Intact vision. NECK: Supple. No signs of meningeal irritation. CARDIOVASCULAR: Regular rate and rhythm. RESPIRATORY: Clear to auscultation. No wheezes. GASTROINTESTINAL: Soft abdomen, not distended. No tenderness. MUSCULOSKELETAL: No obvious deformities, clubbing, cyanosis or edema. NEUROLOGIC: Awake, alert, oriented to person, place, not to time. As per son, this is her baseline. Intact naming. Intact repetition. Mild slurring/ chronic as per son. Normal comprehension. Cranial nerves are grossly within normal. No facial asymmetry. Intact facial sensation. Moves upper extremities equally. Right upper extremity is laid on a high pillow congested with discoloration at the cannula site. Reflexes 1+ bilateral symmetrical. PSYCHIATRIC: Cooperative, pleasant, no hallucinations LABORATORY DATA White blood cells 9, hemoglobin 13.7, MCV 87.1, INR 1. BUN 22, creatinine 1.1, random glucose 135, calcium 9.6, magnesium 2.1, normal LFTs, ethyl alcohol level less than 3. UDS negative. TSH is remarkably elevated at 12.4, free T3 is 1.79/low, free T4 is 1.06. Albumin 3.3, sodium 125, chloride 88. - Head CT scan without contrast revealed no acute intracranial abnormality. Remote lacunar infarct in the left basal ganglia. DIAGNOSTIC IMPRESSION 1. Possible seizure 2. Encephalopathy 3. Hyponatremia 4. Severe hypothyroidism - I explained to the son that severe hypothyroidism with secondary hyponatremia may cause encephalopathy and eventually convulsions/ seizures may emanate. This is likely a provoked seizure due to the electrolyte imbalance. PLAN 1. Neuro checks q1 hourly 2. No indication for antiseizure medication at this time. 3. EEG 4. Management of the hyponatremia 5. Supportive medical therapy for the severe hypothyroidism. 6. DVT prophylaxis 7. DVT prophylaxis, SCD's. 8. GI prophylaxis 9. Seizure precautions 10. Ativan 1 mg IV for seizures lasting greater than 30 minutes. 11. I discussed the case with the patient's son and registered nurse. Thank you for the opportunity to participate in the care of your patient. MD RICKIE Vargas/ELVIS /12:45 PM /1:00 PM KATELYN
--- NOTE | 2017-10-16 14:00 | EKG ---
Date Performed: 10/15/2017 Time Performed: 18:32:41 PTAGE: 87 years EKG: Sinus rhythm NORMAL ECG Compared to prior tracing no significant change PREVIOUS TRACING : 01/04/2016 16.38 DOCTOR: Jennie Reed Interpretating Date/Time 10/16/2017 14:00:05
[2017-10-17] VITALS (8 sets, daily range): BP systolic 107–144; BP diastolic 56–95; PULSE 42–100; RESP 18–20; TEMP 97.7–98.2; O2SAT 93–96
[2017-10-17] MEDS: CHLORHEXIDINE GLUCONATE 2 % 1 PACK (2 CLOTHS) TOP SCH (03:55)
[2017-10-17 04:49] LABS: BASOPHIL % 0.4 % (0.0-2.0); HEMATOCRIT 32.7 % (35.0-46.0); HEMO FLAGS DIFF FINAL; LYMPH % 10.7 % (9.0-44.0); LYMPHOCYTE # 1.3 TH/MM3 (1.0-4.8); MEAN CELL VOLUME 87.4 FL (80.0-100.0); MEAN CORPUSCULAR HEMOGLOBIN 29.3 PG (27.0-34.0); MEAN CORPUSCULAR HGB CONC 33.5 % (32.0-36.0); MONO % 5.3 % (0.0-8.0); NEUT % 83.6 % (16.0-70.0); PLATELET COUNT 173 TH/MM3 (150-450); RED BLOOD COUNT 3.74 MIL/MM3 (4.00-5.30); RED CELL DISTRIBUTION WIDTH 14.8 % (11.6-17.2); WHITE BLOOD COUNT 11.9 TH/MM3 (4.0-11.0)
[2017-10-17 05:24] LABS: ALKALINE PHOSPHATASE 48 U/L (45-117); ALT (GPT) 22 U/L (10-53); ANION GAP 7 MEQ/L (5-15); AST (GOT) 27 U/L (15-37); BICARBONATE 24.3 MEQ/L (21.0-32.0); BLOOD UREA NITROGEN 35 MG/DL (7-18); CHLORIDE 96 MEQ/L (98-107); GLOMERULAR FILTRATION RATE 29 ML/MIN (>89); MAGNESIUM 2.1 MG/DL (1.5-2.5); POTASSIUM 5.2 MEQ/L (3.5-5.1); SODIUM (NA) 127 MEQ/L (136-145); TOTAL BILIRUBIN ADULT 0.2 MG/DL (0.2-1.0)
[2017-10-17] MEDS: LEVOTHYROXINE SODIUM 100 MCG VIAL IV PUSH SCH (05:42)
--- NOTE | 2017-10-17 06:50 | MG ---
cc: BAL COOPER M.D. Lab No: 17-____ Date: 10/16/2017 Age: 87 Sex: F Race: __ REQUESTING PHYSICIAN Dr. Ferguson INDICATIONS An EEG was obtained on this 87-year-old with a history of dementia and seizures. DESCRIPTION The patient is described as awake and drowsy. There is artifact and a mixture of rhythms. There is a lack of alpha activity. The patient later on is asleep and the artifact dissipates and is replaced by a combination of sleep rhythms. Intermittently, the patient awakens briefly and the background is reactive, there is snoring and theta and delta rhythms bilaterally. Later on again on there is artifact and some alpha rhythms are noted in relationship to the awake recording but on a limited basis. Photic stimulation showed no change. INTERPRETATION Abnormal EEG because of background slowing suggesting a [id number] diffuse disturbance of cerebral function. No epileptiform features are present. MD PURA Barrera/ELVIS /5:28 AM /6:32 AM
[2017-10-17] MEDS: ATENOLOL 25 MG TAB PO SCH (09:00)
[2017-10-17] MEDS: FAMOTIDINE 20 MG/2 ML VIAL IV PUSH SCH ×2 (09:21→21:08)
[2017-10-17] MEDS: SODIUM CHLORIDE 0.9% FLUSH 10 ML FLUSH IV FLUSH SCH ×2 (09:21→21:08)
[2017-10-17] MEDS: DOCUSATE SODIUM 50 MG/SENNA 8.6 MG TAB PO SCH ×2 (09:22→21:08)
[2017-10-17] MEDS: amLODIPine BESYLATE 5 MG TAB PO SCH (09:22)
[2017-10-17] MEDS: LISINOPRIL 20 MG TAB PO SCH (09:23)
[2017-10-17] MEDS: HEPARIN SODIUM - SQ 10,000 UNITS/ML VIAL SQ SCH ×2 (09:24→21:08)
--- NOTE | 2017-10-17 13:57 | HHI.PR ---
Subjective Remarks Follow-up seizure, hyponatremia. The patient is confused. No events reported by nursing. Objective Vitals Vital Signs Date Time Temp Pulse Resp B/P (MAP) Pulse Ox O2 Delivery O2 Flow Rate FiO2 10/17/17 12:04 98.1 100 20 140/94 (109) 94 10/17/17 08:16 98.2 56 20 120/58 (78) 94 10/17/17 04:35 97.9 50 20 121/56 (77) 94 10/17/17 04:04 49 10/17/17 00:00 97.9 50 20 107/56 (73) 94 10/16/17 23:42 45 10/16/17 20:40 Room Air 10/16/17 20:00 98.7 54 20 117/58 (77) 100 10/16/17 20:00 51 10/16/17 18:45 50 10/16/17 16:00 98.9 71 18 121/66 (84) 94 10/16/17 16:00 52 I/O 10/16/17 10/16/17 10/16/17 10/17/17 10/17/17 10/17/17 07:00 15:00 23:00 07:00 15:00 23:00 Intake Total 280 ml 1000 ml 356 ml 240 ml Output Total 525 ml 450 ml Balance -245 ml 1000 ml -94 ml 240 ml Intake Oral 0 ml 240 ml IV Total 280 ml 1000 ml 356 ml Output Urine Total 525 ml 450 ml Result Diagram: 10/17/17 0337 10/17/17 0337 Imaging Last Impressions Head CT 10/15/17 0000 Signed Impressions: Service Date/Time: Sunday, October 15, 2017 18:38 - CONCLUSION: 1. No acute intracranial abnormalities. Remote lacunar infarct left basal ganglia. Sharad Alvarado MD Chest X-Ray 10/15/17 0000 Signed Impressions: Service Date/Time: Sunday, October 15, 2017 19:57 - CONCLUSION: 1. Minimal basilar dependent atelectasis. No effusion. Sharad Alvarado MD Objective Remarks General: Elderly female in no acute distress. Heart: Regular rate and rhythm. No murmur. Lungs: Clear to auscultation bilaterally. No wheezes, rales, or rhonchi. Breathing is nonlabored. Abdomen: Soft, nontender, nondistended. Extremities: No lower extremity edema. Psych: Alert, confused. Procedures None Urinary Catheter: Yes Assessment to: Remove Vascular Central Line Catheter: No A/P Assessment and Plan 1. Seizure: Likely secondary to underlying hyponatremia. Appreciate neurology recommendations. Ativan as needed. 2. Encephalopathy: EEG shows prompt slowing. Appreciate neurology recommendations. Likely secondary to electrolyte abnormalities, seizure. 3. Hypertension: Continue Norvasc, lisinopril, atenolol. 4. Hyponatremia: Continue IV fluids. Monitor labs. Sodium remains low. 5. Hypothyroidism: Continue Synthroid. Repeat thyroid labs in 4-6 weeks. 6. GI prophylaxis: Pepcid. 7. DVT prophylaxis: SCDs, heparin. Reilly Acuna MD Oct 17, 2017 13:57
--- NOTE | 2017-10-17 15:33 | HHI.PR ---
Review/Management Diagnosis - Encephalopathy, resolved - Provoked seizure Normal EEG. Severe hypothyroidism with secondary hyponatremia may cause encephalopathy and eventually convulsions/ seizures may emanate. This is likely a provoked seizure due to the electrolyte imbalance. - Hyponatremia - Severe hypothyroidism Plan - Neuro checks q4 hourly - No indication for antiseizure medication - Management of the hyponatremia - Supportive medical therapy for the severe hypothyroidism. - DVT prophylaxis, SCD's. - GI prophylaxis - No need for further neurologic work up - Please call for questions Diagnosis/Plan: Subjective Subjective Comments No acute events reported Patient is stable EEG revealed no evidence of an ictal activity Head CT scan w/o contrast revealed evidence of a remote left lacunar basal ganglia infarcts Active Medications Current Medications Medications (Trade) Dose Ordered Sig/Rosita Route Start Time Stop Time Status Last Admin (Norvasc) 5 mg DAILY PO 10/16/17 09:00 10/17/17 09:22 (Tenormin) 12.5 mg DAILY PO 10/16/17 09:00 (Prinivil) 40 mg DAILY PO 10/16/17 09:00 10/17/17 09:23 Sodium Chloride 1,000 ml @ 40 mls/hr Q24H IV 10/16/17 02:28 10/16/17 21:01 (NS Flush) 2 ml UNSCH PRN IV FLUSH 10/16/17 02:30 (NS Flush) 2 ml BID IV FLUSH 10/16/17 09:00 10/17/17 09:21 (Tylenol) 650 mg Q6H PRN PO 10/16/17 02:30 (Pepcid Inj) 10 mg Q12HR IV PUSH 10/16/17 09:00 10/17/17 09:21 (Zofran Inj) 4 mg Q6H PRN IV PUSH 10/16/17 02:30 (Ambien) 5 mg HS PRN PO 10/16/17 02:30 (Duoneb Neb) 1 ampule Q2HR NEB PRN INH 10/16/17 02:30 (Heparin Inj) 5,000 units Q12H SQ 10/16/17 09:00 10/17/17 09:24 Miscellaneous Information 1 Q361D XX 10/16/17 02:30 (Chlorhexidine 2% Cloth) 3 pack Taper DAILY@04 TOP 10/16/17 04:00 10/12/18 03:59 10/17/17 03:55 (Chlorhexidine 2% Cloth) 3 pack UNSCH PRN TOP 10/16/17 02:30 (Mariann-Colace) 1 tab BID PO 10/16/17 09:00 10/17/17 09:22 (Milk Of Magnesia Liq) 30 ml Q12H PRN PO 10/16/17 02:30 (Senokot) 17.2 mg Q12H PRN PO 10/16/17 02:30 (Dulcolax Supp) 10 mg DAILY PRN RECTAL 10/16/17 02:30 (Lactulose Liq) 30 ml DAILY PRN PO 10/16/17 02:30 (Synthroid) 25 mcg DAILY@0600 PO 10/18/17 06:00 Allergies Allergies Coded Allergies chlorpromazine (Unverified Allergy, Mild, 10/15/17) Review of Systems All other ROS: ROS reviewed as documented in chart Exam I&O / VS 10/17/17 10/17/17 10/18/17 14:59 22:59 06:59 Intake Total 240 ml Output Total 350 ml 100 ml Balance -110 ml -100 ml Intake Oral 240 ml Output Urine Total 350 ml 100 ml Vital Signs Date Time Temp Pulse Resp B/P (MAP) Pulse Ox O2 Delivery O2 Flow Rate FiO2 10/17/17 12:04 98.1 100 20 140/94 (109) 94 10/17/17 08:16 98.2 56 20 120/58 (78) 94 10/17/17 08:00 42 10/17/17 08:00 Room Air 10/17/17 04:35 97.9 50 20 121/56 (77) 94 10/17/17 04:04 49 10/17/17 00:00 97.9 50 20 107/56 (73) 94 10/16/17 23:42 45 10/16/17 20:40 Room Air 10/16/17 20:00 98.7 54 20 117/58 (77) 100 10/16/17 20:00 51 10/16/17 18:45 50 10/16/17 16:00 98.9 71 18 121/66 (84) 94 10/16/17 16:00 52 Exam Comments GENERAL: Awake, alert, pleasant, overweight. HEENT: Atraumatic, normocephalic. [id number]. Intact vision. NECK: Supple. No signs of meningeal irritation. CARDIOVASCULAR: Regular rate and rhythm. RESPIRATORY: Clear to auscultation. No wheezes. GASTROINTESTINAL: Soft abdomen, not distended. No tenderness. MUSCULOSKELETAL: No obvious deformities, clubbing, cyanosis or edema. NEUROLOGIC: Awake, alert, oriented to person, place, not to time. Intact naming. Intact repetition. Mild slurring/chronic as per son. Normal comprehension. Cranial nerves are grossly within normal. No facial asymmetry. Intact facial sensation. Moves upper extremities equally. Right upper extremity is laid on a high pillow congested with discoloration at the cannula site. Reflexes 1+ bilateral symmetrical. PSYCHIATRIC: Cooperative, pleasant, no hallucinations Objective Radiology Results Last [address] 10/15/17 0000 Signed Impressions: Service Date/Time: Sunday, October 15, 2017 18:38 - CONCLUSION: 1. No acute intracranial abnormalities. Remote lacunar infarct left basal ganglia. Sharad Alvarado MD Chest X-Ray 10/15/17 0000 Signed Impressions: Service Date/Time: Sunday, October 15, 2017 19:57 - CONCLUSION: 1. Minimal basilar dependent atelectasis. No effusion. Sharad Alvarado MD Micro and Labs Laboratory Tests Test 10/16/17 21:36 10/17/17 03:37 10/17/17 04:42 Sodium Level 127 127 White Blood Count 11.9 Red Blood Count 3.74 Hemoglobin 10.9 Hematocrit 32.7 Mean Corpuscular Volume 87.4 Mean Corpuscular Hemoglobin 29.3 Mean Corpuscular Hemoglobin Concent 33.5 Red Cell Distribution Width 14.8 Platelet Count 173 Mean Platelet Volume 7.8 Neutrophils (%) (Auto) 83.6 Lymphocytes (%) (Auto) 10.7 Monocytes (%) (Auto) 5.3 Eosinophils (%) (Auto) 0.0 Basophils (%) (Auto) 0.4 Neutrophils # (Auto) 10.0 Lymphocytes # (Auto) 1.3 Monocytes # (Auto) 0.6 Eosinophils # (Auto) 0.0 Basophils # (Auto) 0.0 CBC Comment DIFF FINAL Differential Comment Blood Urea Nitrogen 35 Creatinine 1.67 Random Glucose 105 Total Protein 6.0 Albumin 2.7 Calcium Level 8.6 Phosphorus Level 3.6 Magnesium Level 2.1 Alkaline Phosphatase 48 Aspartate Amino Transf (AST/SGOT) 27 Alanine Aminotransferase (ALT/SGPT) 22 Total Bilirubin 0.2 Potassium Level 5.2 Chloride Level 96 Carbon Dioxide Level 24.3 Anion Gap 7 Estimat Glomerular Filtration Rate 29 Lactic Acid Level 0.8 Date/Time Source Procedure Growth Status 10/15/17 19:50 Blood Peripheral Aerobic Blood Culture - Preliminary NO GROWTH IN 2 DAYS Resulted 10/15/17 19:50 Blood Peripheral Anaerobic Blood Culture - Preliminary NO GROWTH IN 2 DAYS Resulted Gudelia Garcia MD Oct 17, 2017 15:33
[2017-10-17] MEDS: SODIUM CHLOR 0.9% 1000 ML INJ 1,000 ML IV SCH (21:09)
[2017-10-18] VITALS (9 sets, daily range): BP systolic 111–151; BP diastolic 56–73; PULSE 44–59; RESP 20; TEMP 97.3–99; O2SAT 92–98
[2017-10-18] MEDS: CHLORHEXIDINE GLUCONATE 2 % 1 PACK (2 CLOTHS) TOP SCH (04:00)
[2017-10-18] MEDS ORDERED: LEVOTHYROXINE SODIUM 25 MCG TAB PO SCH (06:00)
[2017-10-18] MEDS: ATENOLOL 25 MG TAB PO SCH (08:46)
[2017-10-18] MEDS: DOCUSATE SODIUM 50 MG/SENNA 8.6 MG TAB PO SCH ×2 (08:47→20:35)
[2017-10-18] MEDS: HEPARIN SODIUM - SQ 10,000 UNITS/ML VIAL SQ SCH ×2 (08:47→20:35)
[2017-10-18] MEDS: SODIUM CHLORIDE 0.9% FLUSH 10 ML FLUSH IV FLUSH SCH ×2 (08:47→20:35)
[2017-10-18] MEDS: amLODIPine BESYLATE 5 MG TAB PO SCH (08:47)
[2017-10-18 14:25] LABS: AUTOMATED NEUTROPHIL # 10.3 TH/MM3 (1.8-7.7); BASOPHIL % 0.2 % (0.0-2.0); EOSINOPHIL # 0.1 TH/MM3 (0-0.4); EOSINOPHIL % 0.9 % (0.0-4.0); HEMATOCRIT 36.2 % (35.0-46.0); HEMO FLAGS DIFF FINAL; LYMPH % 14.5 % (9.0-44.0); MEAN CELL VOLUME 88.7 FL (80.0-100.0); MEAN CORPUSCULAR HGB CONC 32.6 % (32.0-36.0); MONO % 8.6 % (0.0-8.0); NEUT % 75.8 % (16.0-70.0); PLATELET COUNT 174 TH/MM3 (150-450); RED BLOOD COUNT 4.07 MIL/MM3 (4.00-5.30); RED CELL DISTRIBUTION WIDTH 14.9 % (11.6-17.2); WHITE BLOOD COUNT 13.5 TH/MM3 (4.0-11.0)
[2017-10-18 14:40] LABS: BICARBONATE 26.1 MEQ/L (21.0-32.0); MAGNESIUM 1.9 MG/DL (1.5-2.5); POTASSIUM 4.3 MEQ/L (3.5-5.1)
[2017-10-18] MEDS ORDERED: SODIUM CHLORIDE 1 GRAM TAB PO ONE (16:45)
--- NOTE | 2017-10-18 17:46 | HHI.PR ---
Subjective Remarks Follow-up seizure and hyponatremia. Difficult to obtain good history secondary to hard of hearing. No recurrence of seizure. Discussed with RN Objective Vitals Vital Signs Date Time Temp Pulse Resp B/P (MAP) Pulse Ox O2 Delivery O2 Flow Rate FiO2 10/18/17 16:00 97.8 51 20 132/61 (84) 98 10/18/17 12:00 97.3 51 20 135/62 (86) 95 10/18/17 08:00 99.0 56 20 111/73 (86) 95 10/18/17 08:00 53 10/18/17 08:00 Room Air 10/18/17 04:00 98.9 59 20 151/67 (95) 95 10/18/17 04:00 48 10/18/17 00:15 92 Room Air 10/18/17 00:15 53 10/18/17 00:00 98.6 58 20 144/61 (88) 92 10/17/17 20:00 97.7 60 20 129/60 (83) 93 10/17/17 20:00 Room Air 10/17/17 20:00 50 I/O 10/17/17 10/17/17 10/17/17 10/18/17 10/18/17 10/18/17 06:59 14:59 22:59 06:59 14:59 22:59 Intake Total 356 ml 240 ml 120 ml Output Total 450 ml 350 ml 100 ml Balance -94 ml -110 ml -100 ml 120 ml Intake Oral 0 ml 240 ml 120 ml IV Total 356 ml Output Urine Total 450 ml 350 ml 100 ml # Voids 3 # Bowel Movements 0 Result Diagram: 10/18/17 1340 10/18/17 1340 Imaging Last Impressions Head CT 10/15/17 0000 Signed Impressions: Service Date/Time: Sunday, October 15, 2017 18:38 - CONCLUSION: 1. No acute intracranial abnormalities. Remote lacunar infarct left basal ganglia. Sharad Alvarado MD Chest X-Ray 10/15/17 0000 Signed Impressions: Service Date/Time: Sunday, October 15, 2017 19:57 - CONCLUSION: 1. Minimal basilar dependent atelectasis. No effusion. Sharad Alvarado MD Objective Remarks General: Elderly female in no acute distress. Skin warm no lesions Heart: Regular rate and rhythm. No murmur. Lungs: Clear to auscultation bilaterally. No wheezes, rales, or rhonchi. Breathing is nonlabored. Abdomen: Soft, nontender, nondistended. Extremities: Chronic lower extremity edema Psych: Alert, following simple questions Procedures None A/P Problem List: (1) First time seizure ICD Code: R56.9 - Unspecified convulsions Status: Acute Assessment and Plan 1. Seizure: Likely secondary to underlying hyponatremia. Appreciate neurology recommendations no AED for now. Ativan as needed. 2. Encephalopathy: EEG shows prompt slowing. Appreciate neurology recommendations. Likely secondary to electrolyte abnormalities, seizure. 3. Hypertension: Continue Norvasc, lisinopril, atenolol. Stable 4. Hyponatremia: Improved discontinue IV fluids. EMR review shows this is chronic. She was evaluated by nephrology in the past and recommended sodium tabs, fluid restriction and follow-up with assistant winemaker secondary to low cortisol. Start sodium chloride tabs 5. Hypothyroidism: Continue Synthroid. Repeat thyroid labs in 4-6 weeks. 6. Leukocytosis likely reactive. No evidence of infection. We'll monitor repeat CBC in the morning 7. GI prophylaxis: Pepcid. 8. DVT prophylaxis: SCDs, heparin. Discharge Planning Discharge in the morning Alejandro Pérez MD Oct 18, 2017 17:46
[2017-10-18] MEDS ORDERED: SODI1TAB PO (17:51)
[2017-10-18] MEDS ORDERED: LEVO.1 PO (17:51)
--- NOTE | 2017-10-18 17:51 | HHI.DCPOC ---
Discharge Care Plan Diagnosis: (1) Hypothyroidism (2) First time seizure Your Health Problems Are: Difficulty with ADL Exercise Tolerance Goals to Promote Your Health * To prevent worsening of your condition and complications * To maintain your health at the optimal level Directions to Meet Your Goals Take your medications as prescribed Follow your dietary instruction Follow activity as directed Keep your appointments as scheduled Take your immunizations and boosters as scheduled If your symptoms worsen call your PCP, if no PCP go to Urgent Care Center or Emergency Room Smoking is Dangerous to Your Health. Avoid second hand smoke Call the 24-hour hour crisis hotline for domestic abuse at Alejandro Pérez MD Oct 18, 2017 17:51
--- NOTE | 2017-10-18 17:52 | HHI.FF ---
Face to Face Verification Diagnosis: (1) First time seizure Physical Therapy Order: Evaluate and Treat, Improve ambulation, Strength and gait training Home Health Nursing Order: Medical education Signs/symptoms of disease process Nursing assessment with vital signs I have seen patient Cata Rose on 10/18/17. My clinical findings support the need for the requested home health care services because: Ltd mobility - disease progression Impaired cognition/judgement I certify that my clinical findings support that this patient is homebound because: Impaired cognitive ability/safety Unsafe to leave home unassisted Alejandro Pérez MD Oct 18, 2017 17:52
[2017-10-18] MEDS: SODIUM CHLORIDE 1 GRAM TAB PO SCH (20:34)
[2017-10-19] VITALS: BP 129/58; PULSE 54; RESP 20; TEMP 97.2; O2SAT 98
[2017-10-19 03:49] VITALS: PULSE 43
[2017-10-19 04:00] VITALS: BP 129/60; PULSE 53; RESP 20; TEMP 97.7; O2SAT 99
[2017-10-19] MEDS: CHLORHEXIDINE GLUCONATE 2 % 1 PACK (2 CLOTHS) TOP SCH (04:00)
[2017-10-19] MEDS ORDERED: LEVOTHYROXINE SODIUM 100 MCG TAB PO SCH (06:00)
[2017-10-19 08:00] VITALS: PULSE 46
[2017-10-19 08:56] VITALS: BP 157/69; PULSE 59; RESP 20; TEMP 97.2; O2SAT 95
[2017-10-19] MEDS: SODIUM CHLORIDE 0.9% FLUSH 10 ML FLUSH IV FLUSH SCH (09:10)
[2017-10-19] MEDS: ATENOLOL 25 MG TAB PO SCH (09:10)
[2017-10-19] MEDS: SODIUM CHLORIDE 1 GRAM TAB PO SCH (09:10)
[2017-10-19] MEDS: DOCUSATE SODIUM 50 MG/SENNA 8.6 MG TAB PO SCH (09:10)
[2017-10-19] MEDS: HEPARIN SODIUM - SQ 10,000 UNITS/ML VIAL SQ SCH (09:10)
[2017-10-19] MEDS: amLODIPine BESYLATE 5 MG TAB PO SCH (09:10)
[2017-10-19 09:52] LABS: BICARBONATE 27.2 MEQ/L (21.0-32.0); POTASSIUM 4.1 MEQ/L (3.5-5.1)
[2017-10-19 10:03] LABS: AUTOMATED NEUTROPHIL # 4.1 TH/MM3 (1.8-7.7); BASOPHIL % 0.1 % (0.0-2.0); EOSINOPHIL # 0.1 TH/MM3 (0-0.4); EOSINOPHIL % 2.3 % (0.0-4.0); HEMO FLAGS DIFF FINAL; LYMPH % 21.3 % (9.0-44.0); LYMPHOCYTE # 1.4 TH/MM3 (1.0-4.8); MEAN CELL VOLUME 89.2 FL (80.0-100.0); MEAN CORPUSCULAR HEMOGLOBIN 29.6 PG (27.0-34.0); MEAN CORPUSCULAR HGB CONC 33.2 % (32.0-36.0); MONO % 13.1 % (0.0-8.0); NEUT % 63.2 % (16.0-70.0); PLATELET COUNT 164 TH/MM3 (150-450); WHITE BLOOD COUNT 6.4 TH/MM3 (4.0-11.0)
[2017-10-19 12:02] VITALS: BP 147/65; PULSE 54; RESP 20; TEMP 98.4; O2SAT 96
--- NOTE | 2017-10-19 14:47 | HHI.DS ---
Discharge Summary Admission Date Oct 15, 2017 at 20:26 Discharge Date: Oct 19, 2017 Admitting Diagnosis new onset seizure; hypothermia; traumatic angioed; abn thyroid (1) First time seizure ICD Code: R56.9 - Unspecified convulsions Diagnosis: Principal Status: Acute Procedures None Brief History - From Admission 87-year-old female was found seizing by her family members who called 911. By the time paramedics arrived the seizure had stopped and patient was unconscious with a GCS of 3. As per the family's description it sounded like a generalized tonic-clonic seizure. Patient does not have history of seizures. Her mental status started to improve on route. When she arrived to the ER she was a GCS of 13. Vital signs were otherwise stable. Blood sugar was 145 as per EMS. Patient is not a reliable historian at this point. There are no family members currently to give additional history. Patient is on blood pressure medications. CBC/BMP: 10/19/17 0708 10/19/17 0705 Significant Findings Laboratory Tests Test 10/16/17 21:36 10/17/17 03:37 10/17/17 04:42 10/17/17 15:09 Sodium Level 127 MEQ/L (136-145) 127 MEQ/L (136-145) 129 MEQ/L (136-145) White Blood Count 11.9 TH/MM3 (4.0-11.0) Red Blood Count 3.74 MIL/MM3 (4.00-5.30) Hemoglobin 10.9 GM/DL (11.6-15.3) Hematocrit 32.7 % (35.0-46.0) Neutrophils (%) (Auto) 83.6 % (16.0-70.0) Neutrophils # (Auto) 10.0 TH/MM3 (1.8-7.7) Blood Urea Nitrogen 35 MG/DL (7-18) Creatinine 1.67 MG/DL (0.50-1.00) Total Protein 6.0 GM/DL (6.4-8.2) Albumin 2.7 GM/DL (3.4-5.0) Potassium Level 5.2 MEQ/L (3.5-5.1) Chloride Level 96 MEQ/L (98-107) Estimat Glomerular Filtration Rate 29 ML/MIN (>89) Test 10/17/17 23:25 10/18/17 13:40 10/19/17 07:05 10/19/17 07:08 Sodium Level 129 MEQ/L (136-145) 129 MEQ/L (136-145) 132 MEQ/L (136-145) White Blood Count 13.5 TH/MM3 (4.0-11.0) Neutrophils (%) (Auto) 75.8 % (16.0-70.0) Monocytes (%) (Auto) 8.6 % (0.0-8.0) 13.1 % (0.0-8.0) Neutrophils # (Auto) 10.3 TH/MM3 (1.8-7.7) Monocytes # (Auto) 1.2 TH/MM3 (0-0.9) Blood Urea Nitrogen 28 MG/DL (7-18) 19 MG/DL (7-18) Creatinine 1.04 MG/DL (0.50-1.00) Random Glucose 119 MG/DL (74-106) 65 MG/DL (74-106) Chloride Level 97 MEQ/L (98-107) 96 MEQ/L (98-107) Estimat Glomerular Filtration Rate 50 ML/MIN (>89) 65 ML/MIN (>89) Red Blood Count 3.70 MIL/MM3 (4.00-5.30) Hemoglobin 10.9 GM/DL (11.6-15.3) Hematocrit 33.0 % (35.0-46.0) Imaging Last Impressions Head CT 10/15/17 0000 Signed Impressions: Service Date/Time: Sunday, October 15, 2017 18:38 - CONCLUSION: 1. No acute intracranial abnormalities. Remote lacunar infarct left basal ganglia. Sharad Alvarado MD Chest X-Ray 10/15/17 0000 Signed Impressions: Service Date/Time: Sunday, October 15, 2017 19:57 - CONCLUSION: 1. Minimal basilar dependent atelectasis. No effusion. Sharad Alvarado MD PE at Discharge General: Elderly female in no acute distress. Asking to be sent home Skin warm no lesions . Sutures left chest wall for skin cancer removal Heart: Regular rate and rhythm. No murmur. Lungs: Clear to auscultation bilaterally. No wheezes, rales, or rhonchi. Breathing is nonlabored. Abdomen: Soft, nontender, nondistended. Extremities: Chronic lower extremity edema Psych: Awake and confused, following simple questions Hospital Course 1. Seizure: Likely secondary to underlying hyponatremia. Appreciate neurology recommendations no AED for now. Ativan as needed. 2. Encephalopathy with history of dementia and schizophrenia: EEG shows prompt slowing. Appreciate neurology recommendations. Likely secondary to electrolyte abnormalities, seizure. 3. Hypertension: Continue Norvasc, lisinopril, atenolol. Stable 4. Hyponatremia: Improved discontinued IV fluids. EMR review shows this is chronic. She was evaluated by nephrology in the past and recommended sodium tabs, fluid restriction and follow-up with tree driller secondary to low cortisol. Continue sodium chloride tabs 5. Hypothyroidism: Continue Synthroid. Repeat thyroid labs in 4-6 weeks. 6. Leukocytosis likely reactive. No evidence of infection. Improved 7. GI prophylaxis: Pepcid. 8. DVT prophylaxis: SCDs, heparin. 9. DC chest wall sutures Dw daughter Pt Condition on Discharge: Stable Discharge Disposition: Disch w/ Home Health Serv Discharge Time: > 30 minutes Discharge Instructions DIET: Follow Instructions for: As Tolerated, No Restrictions Speech Therapy-Diet Recommends: Mechanical Soft, [place] Thickened Liquids Activities you can perform: Regular-No Restrictions Activities to Avoid: Driving Other Activity Instructions: No driving for 6 months, carrying young children, swimming alone and climbing heights Follow up Referrals: Endocrinology - 1 Week Neurology - 1 Week PCP Follow-up - 2-3 Days New Orders: BASIC METABOLIC PROF - 10/22/17 New Medications: Levothyroxine (Synthroid) 100 Mcg Tab 100 MCG PO DAILY@0600 for Thyroid Supplement, #30 TAB Sodium Chloride (Sodium Chloride) 1 Gram Tab 1 GM PO BID for Electrolyte Replacement, #60 TAB Continued Medications: Amlodipine (Amlodipine) 5 Mg Tab 5 MG PO DAILY for Blood Pressure Management, #30 TAB 0 Refills Atenolol (Atenolol) 25 Mg Tab 12.5 MG PO DAILY for Blood Pressure Management, #30 TAB 0 Refills Discontinued Medications: Lisinopril (Lisinopril) 40 Mg Tab 40 MG PO DAILY for Blood Pressure Management, #30 TAB 0 Refills Alejandro Pérez MD Oct 19, 2017 14:46
== END 2017-10-19 15:19 | disposition home or self-care (01) | DRG 640 ==
LOC: PHED 18:21 → PHEDA 20:26 → N03A 10-16 00:43 → N04B 10-16 15:51
PROVIDERS: ADMIT Internal Medicine; ATTEND Internal Medicine
DX: E87.1 Hypo-osmolality and hyponatremia (principal); G93.40 Encephalopathy, unspecified; R56.9 Unspecified convulsions; I50.9 Heart failure, unspecified; R00.1 Bradycardia, unspecified; I11.0 Hypertensive heart disease with heart failure; F03.90 Unspecified dementia, unspecified severity, without behavioral disturbance, psychotic disturbance, mood disturbance, and anxiety; J98.11 Atelectasis; F20.9 Schizophrenia, unspecified; E03.9 Hypothyroidism, unspecified; R40.2431 Glasgow coma scale score 3-8, in the field [EMT or ambulance]; R40.2412 Glasgow coma scale score 13-15, at arrival to emergency department; M19.90 Unspecified osteoarthritis, unspecified site; D72.829 Elevated white blood cell count, unspecified; R68.0 Hypothermia, not associated with low environmental temperature; H91.90 Unspecified hearing loss, unspecified ear; F32.9 Major depressive disorder, single episode, unspecified; F41.9 Anxiety disorder, unspecified; T78.3XXA Angioneurotic edema, initial encounter; T44.5X5A Adverse effect of predominantly beta-adrenoreceptor agonists, initial encounter; Z87.891 Personal history of nicotine dependence; Z96.653 Presence of artificial knee joint, bilateral
CPT/HCPCS: 51702; 70450; 71010; 80048; 80053; 80307; 81001; 82550; 83605; 83735; 84100; 84295; 84439; 84443; 84481; 84484; 85025; 85610; 85730; 87040; 87641; 93005; 95819; 96374; 96375; J1200; J1644; J2543; J2930; J3370; J7030; J7050; Q2009

== ENCOUNTER 2018-01-01 01:40 | Inpatient (IN) | payer OTHER, MEDICARE ==
[2018-01-01] VITALS (33 sets, daily range): BP systolic 87–143; BP diastolic 42–82; PULSE 46–72; RESP 16–41; TEMP 90.8–98.2; O2SAT 91–100
[~2018-01-01] VITALS: Ht 154.9 cm; Wt 101.0 kg
[~2018-01-01 01:40] MED LIST changes: +AMLO5TAB2 PO; -AMLO5TAB22 PO; -ATEN-102 PO; +ATEN25TA PO; -ENOX40P SQ; +LEVO.1 PO; -LISI-363 PO; -LORTA5 PO; +SODI1TAB PO; -Z.0.WALKERFRONT
[2018-01-01] MEDS ORDERED: SODIUM CHLOR 0.9% 1000 ML INJ 1,000 ML IV ONE (02:29)
[2018-01-01] MEDS ORDERED: SODIUM CHLORIDE 0.9% FLUSH 10 ML FLUSH IVF PRN (02:30)
[2018-01-01 03:10] LABS: ALBUMIN 3.1 GM/DL (3.4-5.0); ALKALINE PHOSPHATASE 72 U/L (45-117); ALT (GPT) 30 U/L (10-53); AST (GOT) 32 U/L (15-37); BICARBONATE 23.7 MEQ/L (21.0-32.0); BLOOD UREA NITROGEN 19 MG/DL (7-18); CALCIUM 9.2 MG/DL (8.5-10.1); CHLORIDE 88 MEQ/L (98-107); CREATININE 0.83 MG/DL (0.50-1.00); GLOMERULAR FILTRATION RATE 65 ML/MIN (>89); GLUCOSE,RANDOM 127 MG/DL (74-106); TOTAL BILIRUBIN ADULT 0.2 MG/DL (0.2-1.0); TOTAL PROTEIN 6.9 GM/DL (6.4-8.2)
[2018-01-01 03:17] LABS: SODIUM (NA) 124 MEQ/L (136-145)
[2018-01-01] MEDS ORDERED: SODIUM CHLOR 0.9% 1000 ML INJ 1,000 ML IV SCH (03:30)
[2018-01-01 03:32] LABS: AUTOMATED NEUTROPHIL # 5.4 TH/MM3 (1.8-7.7); BASOPHIL % 0.7 % (0.0-2.0); EOSINOPHIL % 0.4 % (0.0-4.0); HEMATOCRIT 32.2 % (35.0-46.0); HEMOGLOBIN 10.3 GM/DL (11.6-15.3); LYMPH % 15.1 % (9.0-44.0); MEAN CELL VOLUME 86.8 FL (80.0-100.0); MEAN CORPUSCULAR HEMOGLOBIN 27.8 PG (27.0-34.0); MEAN PLATELET VOLUME 7.8 FL (7.0-11.0); MONO % 6.3 % (0.0-8.0); MONOCYTE # 0.4 TH/MM3 (0-0.9); NEUT % 77.5 % (16.0-70.0); PLATELET COUNT 190 TH/MM3 (150-450); RED BLOOD COUNT 3.71 MIL/MM3 (4.00-5.30); RED CELL DISTRIBUTION WIDTH 14.6 % (11.6-17.2); WHITE BLOOD COUNT 6.8 TH/MM3 (4.0-11.0)
[2018-01-01 03:51] LABS: BILIRUBIN, URINE NEG (NEG); BLOOD, URINE LARGE (NEG); GLUCOSE,URINE NEG (NEG); KETONE, URINE NEG (NEG); NITRITE,URINE POS (NEG); URINE LEUKOCYTE ESTERASE LARGE (NEG)
[2018-01-01 03:56] LABS: URINE COLOR YELLOW (YELLW/STRAW)
[2018-01-01 03:58] LABS: BACTERIA, URINE MOD /hpf; RBC, URINE 15-19 /hpf (0-3); SQUAMOUS EPITHELIAL CELL URINE 0-5 /hpf (0-5); WBC, URINE 100-200 /hpf (0-5); WHITE BLOOD CELL CLUMPS MOD
--- NOTE | 2018-01-01 04:08 | PD ---
HPI Chief Complaint: Seizure Time Seen by Provider: 02:29 Travel History International Travel<30 days: No Contact w/Intl Traveler<30days: No Traveled to known affect area: No History of Present Illness HPI The patient is an 87-year-old female that had a seizure on October 15. She was not put on seizure medications and she had another seizure tonight. The daughter states that her temperature drops after seizures. She denies any headache or focal neurologic change. She denies any fever. According to the daughter the patient has dementia and is not oriented normally. PFSH Past Medical History Arthritis: Yes Asthma: No Anxiety: Yes Depression: Yes Cancer: No Cardiovascular Problems: Yes High Cholesterol: Yes Chemotherapy: No Chest Pain: No COPD: No Cerebrovascular Accident: No Dementia: Yes (schizophrenia) Diminished Hearing: Yes (aide lt ear) Endocrine: No Gastrointestinal Disorders: No Genitourinary: No Hypertension: Yes Immune Disorder: No Implanted Vascular Access Dvce: Yes Neurologic: Yes (DEMENTIA, SCHIZOPHRENIA, DEPRESSION) Psychiatric: Yes Reproductive: No Respiratory: Yes (shortness of breath) Immunizations Current: Yes Migraines: No Radiation Therapy: No Schizophrenia: Yes Seizures: Yes (10/2017, 01/01/2017) Sleep Apnea: No ?: Not Menopausal: Yes Past Surgical History Abdominal Surgery: Yes (APPENDECTOMY, CHOLECYSTECTOMY) AICD: No Appendectomy: Yes Arteriovenous Shunt: No Cholecystectomy: Yes Ear Surgery: No Endocrine Surgery: No Eye Surgery: No Genitourinary Surgery: No Gynecologic Surgery: No Insulin Pump: No Joint Replacement: Yes (bilateral knee ) Oral Surgery: No Pacemaker: No Social History Alcohol Use: Yes (WINE DAILY) Tobacco Use: No Substance Use: No Allergies-Medications (Allergen,Severity, Reaction): Coded Allergies: chlorpromazine (Unverified Allergy, Mild, 10/15/17) Reported Meds & Prescriptions Reported Meds & Active Scripts Active Synthroid (Levothyroxine Sodium) 100 Mcg Tab 100 Mcg PO DAILY@0600 Sodium Chloride 1 Gram Tab 1 Gm PO BID Reported Atenolol 25 Mg Tab 12.5 Mg PO DAILY Amlodipine (Amlodipine Besylate) 5 Mg Tab 5 Mg PO DAILY Review of Systems Except as stated in HPI: all other systems reviewed are Neg Physical Exam Narrative GENERAL: The patient is alert, slightly confused but answers questions fairly appropriately. The temperature is 91.0 rectally and repeat is 90.8 rectally. Pulse is 58 and respirations 18. Blood pressure is 143/65 and oximetry 99% on room air. The patient appears to be hyperventilating. The sodium is 124, BUN 19, glucose 127, GFR of 65 with albumin of 3.1. The catheterized urine shows hazy turbidity, 30 protein, large occult blood, positive nitrite, large leukocyte E[place]ace with 15-19 red cells and 100-200 white cells and moderate white cell clampings with moderate bacteria and culture is indicated. SKIN: Focused skin assessment warm/dry. HEAD: Atraumatic. Normocephalic. EYES: Pupils equal and round. No scleral icterus. No injection or drainage. ENT: No nasal bleeding or discharge. Mucous membranes pink and moist. There is several bite miller on the left side of the tongue which are recent. NECK: Trachea midline. No JVD. There is no meningismus present. CARDIOVASCULAR: Regular rate and rhythm. No murmur appreciated. RESPIRATORY: No accessory muscle use. Clear to auscultation. Breath sounds equal bilaterally. GASTROINTESTINAL: Abdomen soft, non-tender, nondistended. Hepatic and splenic margins not palpable. MUSCULOSKELETAL: No obvious deformities. No clubbing. No cyanosis. No edema. NEUROLOGICAL: Awake and alert. No obvious cranial nerve deficits. Motor grossly within normal limits. Normal speech. PSYCHIATRIC: Appropriate mood and affect; insight and judgment normal. Data Data Last Documented VS Vital Signs Date Time Temp Pulse Resp B/P (MAP) Pulse Ox O2 Delivery O2 Flow Rate FiO2 01/01/18 04:35 91.7 01/01/18 04:00 48 18 96 Room Air Orders Orders Complete Blood Count With Diff (01/01/18 02:29) Electrocardiogram (01/01/18 ) Ct Brain W/O Iv Contrast(Rout) (01/01/18 ) Ecg Monitoring (01/01/18 02:29) Iv Access Insert/Monitor (01/01/18 02:29) Oximetry (01/01/18 02:29) Cath For Specimen (01/01/18 02:29) Comprehensive Metabolic Panel (01/01/18 02:29) Sodium Chlor 0.9% 1000 Ml Inj (Ns 1000 M (01/01/18 02:29) Sodium Chloride 0.9% Flush (Ns Flush) (01/01/18 02:30) Urinalysis - C+S If Indicated (01/01/18 02:29) Arterial Blood Gas (Abg) (01/01/18 ) Sepsis Workup Initiated (01/01/18 ) Lactic Acid Sepsis Protocol (01/01/18 03:13) Blood Culture (01/01/18 03:13) Sodium Chlor 0.9% 1000 Ml Inj (Ns 1000 M (01/01/18 03:30) Urine Culture (01/01/18 03:32) Ceftriaxone Inj (Rocephin Inj) (01/01/18 04:30) Troponin I (01/01/18 02:40) Amlodipine (Norvasc) (01/01/18 09:00) Levothyroxine (Synthroid) (01/01/18 06:00) Sodium Chloride (Sodium Chloride) (01/01/18 09:00) Urinary Catheter Insert/Apply (01/01/18 05:01) Admit Order (Ed Use Only) (01/01/18 05:02) Labs Laboratory Tests Test 01/01/18 02:35 01/01/18 02:40 01/01/18 03:08 01/01/18 03:32 Blood Gas Puncture Site RT RADIAL Blood Gas Patient Temperature 98.6 Blood Gas HCO3 25 mmol/L Blood Gas Base Excess 2.9 mmol/L Blood Gas Oxygen Saturation 97 % Arterial Blood pH 7.59 Arterial Blood Partial Pressure CO2 26 mmHG Arterial Blood Partial Pressure O2 171 mmHG Arterial Blood Oxygen Content 14.6 Vol % Arterial Blood Carboxyhemoglobin 0.0 % Arterial Blood Methemoglobin 0.4 % Blood Gas Hemoglobin 10.5 G/DL Blood Gas Inspired Oxygen 21 % Blood Urea Nitrogen 19 MG/DL Creatinine 0.83 MG/DL Random Glucose 127 MG/DL Total Protein 6.9 GM/DL Albumin 3.1 GM/DL Calcium Level 9.2 MG/DL Alkaline Phosphatase 72 U/L Aspartate Amino Transf (AST/SGOT) 32 U/L Alanine Aminotransferase (ALT/SGPT) 30 U/L Total Bilirubin 0.2 MG/DL Sodium Level 124 MEQ/L Potassium Level 3.5 MEQ/L Chloride Level 88 MEQ/L Carbon Dioxide Level 23.7 MEQ/L Anion Gap 12 MEQ/L Estimat Glomerular Filtration Rate 65 ML/MIN Troponin I LESS THAN 0.02 NG/ML White Blood Count 6.8 TH/MM3 Red Blood Count 3.71 MIL/MM3 Hemoglobin 10.3 GM/DL Hematocrit 32.2 % Mean Corpuscular Volume 86.8 FL Mean Corpuscular Hemoglobin 27.8 PG Mean Corpuscular Hemoglobin Concent 32.0 % Red Cell Distribution Width 14.6 % Platelet Count 190 TH/MM3 Mean Platelet Volume 7.8 FL Neutrophils (%) (Auto) 77.5 % Lymphocytes (%) (Auto) 15.1 % Monocytes (%) (Auto) 6.3 % Eosinophils (%) (Auto) 0.4 % Basophils (%) (Auto) 0.7 % Neutrophils # (Auto) 5.4 TH/MM3 Lymphocytes # (Auto) 1.0 TH/MM3 Monocytes # (Auto) 0.4 TH/MM3 Eosinophils # (Auto) 0.0 TH/MM3 Basophils # (Auto) 0.0 TH/MM3 CBC Comment AUTO DIFF Differential Comment AUTO DIFF CONFIRMED Platelet Estimate NORMAL Platelet Morphology Comment NORMAL Red Cell Morphology Comment NORMAL Urine Color YELLOW Urine Turbidity HAZY Urine pH 7.0 Urine Specific [place] 1.015 Urine Protein 30 mg/dL Urine Glucose (UA) NEG mg/dL Urine Ketones NEG mg/dL Urine Occult Blood LARGE Urine Nitrite POS Urine Bilirubin NEG Urine Leukocyte Esterase LARGE Urine RBC 15-19 /hpf Urine WBC 100-200 /hpf Urine WBC Clumps MOD Urine Squamous Epithelial Cells 0-5 /hpf Urine Bacteria MOD /hpf Microscopic Urinalysis Comment CATH-CULTURE IND Test 01/01/18 03:40 Lactic Acid Level 1.8 mmol/L MDM Medical Decision Making Medical Screen Exam Complete: Yes Emergency Medical Condition: Yes Medical Record Reviewed: Yes Interpretation(s) The CBC is normal except for hemoglobin of 10.3 and hematocrit of 32.2. The blood gases on room air show pH 7.59, CO2 26, PO2 171 with O2 sat 97%. Differential Diagnosis Seizure disorder with seizure, electrolyte disorder, sepsis-unlikely, hypothermia from seizure, bradycardia, acute coronary syndrome Narrative Course The patient has a seizure. She is hypothermic which occurred on her first and only other seizure. She does have a urinary tract infection. She is alert and very talkative and no longer postictal. With the warming blanket, the patient' s temperature is coming up to approximately 102 at this time. Diagnosis Primary Impression: Seizure Additional Impressions: Urinary tract infection Hypothermia Admitting Information Admitting Physician Requests: Admit Hal Witt MD Jan 01, 2018 04:08
[2018-01-01] MEDS ORDERED: cefTRIAXone INJ 1,000 MG in SODIUM CHLORIDE 0.9% INJ 100 ML IV ONE (04:30)
[2018-01-01 04:58] LABS: TROPONIN I LESS THAN 0.02 NG/ML (0.02-0.05)
[2018-01-01] MEDS ORDERED: SODIUM CHLORIDE 0.9% FLUSH 10 ML FLUSH IV FLUSH PRN (05:00)
[2018-01-01] MEDS ORDERED: LORazepam 2 MG/ML VIAL IV PUSH PRN (05:00)
--- NOTE | 2018-01-01 05:11 | RADRPT ---
EXAM DATE/TIME: 01/01/2018 04:40 [facility] COMPARISON: CT BRAIN W/O CONTRAST, October 15, 2017, 18:38. INDICATIONS : Altered mental status. RADIATION DOSE: 60.36 CTDIvol (mGy) MEDICAL HISTORY : Dementia. Hypertension. SURGICAL HISTORY : None. ENCOUNTER: Initial ACUITY: 1 day PAIN SCALE: Non-responsive LOCATION: cranial TECHNIQUE: Multiple contiguous axial images were obtained of the head. Using automated exposure control and adj ustment of the mA and/or kV according to patient size, radiation dose was kept as low as reasonably a chievable to obtain optimal diagnostic quality images. DICOM format image data is available electro nically for review and comparison. FINDINGS: CEREBRUM: Moderate diffuse cerebral volume loss. Small left basal ganglia lacunar infarcts. Moderate periventri cular white matter hypodensities. The ventricles are normal for degree of atrophy. No evidence of mi dline shift, mass lesion, hemorrhage or acute infarction. No extra-axial fluid collections are seen. POSTERIOR FOSSA: The cerebellum and brainstem are intact. The 4th ventricle is midline. The cerebellopontine angle i s unremarkable. EXTRACRANIAL: The visualized portion of the orbits is intact. SKULL: The calvaria is intact. No evidence of skull fracture. CONCLUSION: 1. Stable senescent changes with moderate periventricular small vessel ischemic white matter demyelin ation and small left basal ganglia lacunar infarct. 2. No acute intracranial abnormality. Fernie Muñoz MD on January 01, 2018 at 5:09 Board Certified Radiologist. This report was verified electronically.
[2018-01-01] MEDS: SODIUM CHLOR 0.9% 1000 ML INJ 1,000 ML IV SCH (05:48)
[2018-01-01] MEDS ORDERED: LEVOTHYROXINE SODIUM 100 MCG TAB PO SCH (06:00)
[2018-01-01 08:23] LABS: BICARBONATE 26.7 MEQ/L (21.0-32.0); CALCIUM 8.1 MG/DL (8.5-10.1); CREATININE 0.63 MG/DL (0.50-1.00)
[2018-01-01] MEDS: SODIUM CHLORIDE 1 GRAM TAB PO SCH ×2 (09:00→21:25)
--- NOTE | 2018-01-01 09:33 | HHI.HP ---
HPI Service [facility] Primary Care Physician Raul Cooper M.D. Admission Diagnosis Seizure, hypothermia, urinary tract infection Diagnoses: Chief Complaint: sepsis Travel History International Travel<30 Days: No Contact w/Intl Traveler <30 Da: No Traveled to Known Affected Are: No History of Present Illness 87-year-old white female being admitted for sepsis. Patient is a poor historian most likely due to her medical condition with dementia. History largely obtained from daughter and ER records. Patient was in her usual state of health until a few days ago and her daughter noted the patient is exhibiting more confusion and decreased appetite and some intermittent nausea. Last night the patient had ambulated to her chair and then spontaneously was found to start seizing by clenching her face and her upper arms and a relatively rigid/tremoring fashion. Daughter thinks the whole incident lasted less than 5 minutes. Says that the patient was unconscious all the way through coming to the hospital. She says that the patient was found to be incontinent but the daughter cannot tell if this is due to her chronic incontinence or any acute void with the seizure. They think she might have bit her tongue with the seizure.Daughter says that the patient denied having any new pain complaints or worsening pain. In the emergency room, patient was found to be hypothermic rectally with a temp right around 90-91. She was immediately placed on a warming blanket and started on antibiotics for suspected UTI. Head CT was done which showed no acute abnormalities but did report a small left-sided infarct. Patient was found to be hyponatremic around 124. She was also noted to be hyperventilating with an ABG showing pH of 7.59/ CO2 26 /O2 171 /bicarb 25. At the time she got up to the intensive care unit her temperatures had risen all the way up to 102 and down to 95 with heat therapy. Review of Systems Except as stated in HPI: all other systems reviewed are Neg Past Family Social History Past Medical History Hyponatremia (cause unspecified) Recent new onset seizures Peripheral arterial disease with vascular insufficiency in lower extremities Allergies: Coded Allergies: chlorpromazine (Unverified Allergy, Mild, 10/15/17) Family History First-degree relative who committed suicide due to edward Social History Stop smoking about 20-30 years ago per the daughter, currently lives with the daughter, uses a walker Physical Exam Vital Signs Vital Signs Date Time Temp Pulse Resp B/P (MAP) Pulse Ox O2 Delivery O2 Flow Rate FiO2 01/01/18 07:20 93.7 01/01/18 07:20 Nasal Cannula 4.00 01/01/18 07:15 57 18 118/52 (74) 97 Nasal Cannula 2.00 01/01/18 06:49 93.7 01/01/18 06:10 52 18 109/49 (69) 100 Nasal Cannula 4.00 01/01/18 05:41 46 18 127/46 (73) 100 Nasal Cannula 4.00 01/01/18 05:00 52 18 112/47 (68) 100 Nasal Cannula 4.00 01/01/18 04:35 91.7 01/01/18 04:30 46 18 135/62 (86) 100 Nasal Cannula 4.00 01/01/18 04:15 46 18 124/74 (91) 98 Nasal Cannula 2.00 01/01/18 04:00 48 18 127/74 (91) 96 Room Air 01/01/18 03:45 48 18 133/57 (82) 98 Room Air 01/01/18 03:30 50 18 109/70 (83) 98 Room Air 01/01/18 03:15 48 18 115/82 (93) 100 Room Air 01/01/18 03:08 18 99 Room Air 01/01/18 03:08 90.8 55 18 104/72 (83) 99 Room Air 01/01/18 02:28 Room Air 01/01/18 02:23 91.0 58 20 143/65 (91) 99 Physical Exam VS: afebrile GENERAL: Elderly white female, well-nourished for her age, lying in bed, no acute distress, slowed mentation but does try to answer questions when prompted , follows commands SKIN: Warm and dry. EYES: Pupils equal and round. No scleral icterus. No injection or drainage. ENT: Appears to have a bruised tongue on the left side superiorly with no active bleeding CARDIOVASCULAR: Regular rate and rhythm. no murmurs RESPIRATORY: No accessory muscle use. Clear to auscultation. Breath sounds equal bilaterally. GASTROINTESTINAL: Obese abdomen which is soft, nondistended nontender Extremities: No clubbing, cyanosis, or edema. chronic deformities of bilateral lower extremities, right with more granulation tissue and chronic brawny skin changes. Left leg is showing some weeping from a mild skin tear on the anterior aspect of the gibson : No flank tenderness to palpation, urinary catheter in place MUSCULOSKELETAL: adequate muscle bulk and tone for age and habitus NEUROLOGICAL: Awake and alert. No obvious cranial nerve deficits. No facial droop nor slurred speech noted. Intact dorsi and plantarflexion of bilateral lower extremities, no tremor noted at this time. PSYCHIATRIC: Demented, but pleasant Laboratory Laboratory Tests Test 01/01/18 02:35 01/01/18 02:40 01/01/18 03:08 01/01/18 03:32 Blood Gas Puncture Site RT RADIAL Blood Gas Patient Temperature 98.6 Blood Gas HCO3 25 Blood Gas Base Excess 2.9 Blood Gas Oxygen Saturation 97 Arterial Blood pH 7.59 Arterial Blood Partial Pressure CO2 26 Arterial Blood Partial Pressure O2 171 Arterial Blood Oxygen Content 14.6 Arterial Blood Carboxyhemoglobin 0.0 Arterial Blood Methemoglobin 0.4 Blood Gas Hemoglobin 10.5 Blood Gas Inspired Oxygen 21 Blood Urea Nitrogen 19 Creatinine 0.83 Random Glucose 127 Total Protein 6.9 Albumin 3.1 Calcium Level 9.2 Alkaline Phosphatase 72 Aspartate Amino Transf (AST/SGOT) 32 Alanine Aminotransferase (ALT/SGPT) 30 Total Bilirubin 0.2 Sodium Level 124 Potassium Level 3.5 Chloride Level 88 Carbon Dioxide Level 23.7 Anion Gap 12 Estimat Glomerular Filtration Rate 65 Troponin I LESS THAN 0.02 White Blood Count 6.8 Red Blood Count 3.71 Hemoglobin 10.3 Hematocrit 32.2 Mean Corpuscular Volume 86.8 Mean Corpuscular Hemoglobin 27.8 Mean Corpuscular Hemoglobin Concent 32.0 Red Cell Distribution Width 14.6 Platelet Count 190 Mean Platelet Volume 7.8 Neutrophils (%) (Auto) 77.5 Lymphocytes (%) (Auto) 15.1 Monocytes (%) (Auto) 6.3 Eosinophils (%) (Auto) 0.4 Basophils (%) (Auto) 0.7 Neutrophils # (Auto) 5.4 Lymphocytes # (Auto) 1.0 Monocytes # (Auto) 0.4 Eosinophils # (Auto) 0.0 Basophils # (Auto) 0.0 CBC Comment AUTO DIFF Differential Comment AUTO DIFF CONFIRMED Platelet Estimate NORMAL Platelet Morphology Comment NORMAL Red Cell Morphology Comment NORMAL Urine Color YELLOW Urine Turbidity HAZY Urine pH 7.0 Urine Specific Alloy 1.015 Urine Protein 30 Urine Glucose (UA) NEG Urine Ketones NEG Urine Occult Blood LARGE Urine Nitrite POS Urine Bilirubin NEG Urine Leukocyte Esterase LARGE Urine RBC 15-19 Urine WBC 100-200 Urine WBC Clumps MOD Urine Squamous Epithelial Cells 0-5 Urine Bacteria MOD Microscopic Urinalysis Comment CATH-CULTURE IND Test 01/01/18 03:40 01/01/18 07:40 Lactic Acid Level 1.8 Blood Urea Nitrogen 15 Creatinine 0.63 Random Glucose 73 Calcium Level 8.1 Sodium Level 128 Potassium Level 3.7 Chloride Level 95 Carbon Dioxide Level 26.7 Anion Gap 6 Estimat Glomerular Filtration Rate 89 Thyroid Stimulating Hormone 3rd Gen 0.233 Date/Time Source Procedure Growth Status 01/01/18 03:48 Blood Peripheral Aerobic Blood Culture Pending Received 01/01/18 03:48 Blood Peripheral Anaerobic Blood Culture Pending Received 01/01/18 03:32 Urine Catheterized Urine Urine Culture Pending Received Result Diagram: 01/01/18 0308 01/01/18 0740 Imaging Last Impressions Head CT 01/01/18 0000 Signed Impressions: Service Date/Time: January 04:40 - CONCLUSION: 1. Stable senescent changes with moderate periventricular small vessel ischemic white matter demyelination and small left basal ganglia lacunar infarct. 2. No acute intracranial abnormality. MD Ginger Casrto VTE Risk Assessment Caprini VTE Risk Assessment: Mod/High Risk (score >= 2) Caprini Risk Assessment Model Point Value = 1 Point Value = 2 Point Value = 3 Point Value = 5 Age 41-60 Minor surgery BMI > 25 kg/m2 Swollen legs Varicose veins or History of unexplained or recurrent spontaneous Oral contraceptives or hormone replacement Sepsis (< 1 month) Serious lung disease, including pneumonia (< 1 month) Abnormal pulmonary function Acute myocardial infarction Congestive heart failure (< 1 month) History of inflammatory bowel disease Medical patient at bed rest Age 61-74 Arthroscopic surgery Major open surgery (> 45 min) Laparoscopic surgery (> 45 min) Malignancy Confined to bed (> 72 hours) Immobilizing plaster cast Central venous access Age >= 75 History of VTE Family history of VTE Factor V Leiden Prothrombin [id number] Lupus anticoagulant Anticardiolipin antibodies Elevated serum homocysteine Heparin-induced thrombocytopenia Other congenital or acquired thrombophilia Stroke (< 1 month) Elective arthroplasty Hip, pelvis, or leg fracture Acute spinal cord injury (< 1 month) Prophylaxis Regimen Total Risk Factor Score Risk Level Prophylaxis Regimen 0-1 Low Early ambulation 2 Moderate Order ONE of the following: *Sequential Compression Device (SCD) *Heparin 5000 units SQ BID 3-4 Higher Order ONE of the following medications: *Heparin 5000 units SQ TID *Enoxaparin/Lovenox 40 mg SQ daily (WT < 150 kg, CrCl > 30 mL/min) *Enoxaparin/Lovenox 30 mg SQ daily (WT < 150 kg, CrCl > 10-29 mL/min) *Enoxaparin/Lovenox 30 mg SQ BID (WT < 150 kg, CrCl > 30 mL/min) AND/OR *Sequential Compression Device (SCD) 5 or more Highest Order ONE of the following medications: *Heparin 5000 units SQ TID (Preferred with Epidurals) *Enoxaparin/Lovenox 40 mg SQ daily (WT < 150 kg, CrCl > 30 mL/min) *Enoxaparin/Lovenox 30 mg SQ daily (WT < 150 kg, CrCl > 10-29 mL/min) *Enoxaparin/Lovenox 30 mg SQ BID (WT < 150 kg, CrCl > 30 mL/min) AND *Sequential Compression Device (SCD) Assessment and Plan Assessment and Plan Sepsis -Suspected UTI with possible pyelonephritis given numerous white blood cells, ordering CT abdomen pelvis with contrast. Will most likely upgrade antibiotic regimen -IV fluids w/ warming blankets and fluids -Blood cultures pending Respiratory alkalosis -Possibly due to initial seizure picture, now hyperventilation is much improved , monitor; on room air about 90% O2 sats; obtaining CXR; blood gases showing no CO2 retention Seizure -Wonder if the patient has a chronic underlying disorder that has yet to be elucidated (chronic hyponatremia versus chronic ischemic cerebrovascular disease ) which was then acutely triggered by this current septic picture -Seizure precautions, fall precautions. Will consider loading the patient with Celebrex for now; neurology consult pending acute on chronic Hyponatremia -Treated with salt tablets at home per the daughter, unclear etiology at this time, will obtain serum ADH level -We will obtain urine sodium and urine osmolality - trend levels w/ cautious correction w/ NS SCDs, holding off on heparin in light of recent seizure Physician Certification 2 Midnight Certification Type: Admission for Inpatient Services Order for Inpatient Services The services are ordered in accordance with Medicare regulations or non- Medicare payer requirements, as applicable. In the case of services not specified as inpatient-only, they are appropriately provided as inpatient services in accordance with the 2-midnight benchmark. Estimated LOS (days): 3 3 days is the estimated time the patient will need to remain in the hospital, assuming treatment plan goals are met and no additional complications. Post-Hospital Plan: Not yet determined Kirk Jack MD Jan 01, 2018 09:33
--- NOTE | 2018-01-01 09:41 | RADRPT ---
EXAM DATE/TIME: 01/01/2018 09:27 [facility] COMPARISON: CHEST SINGLE AP, October 15, 2017, 19:57. INDICATIONS : Dyspnea. MEDICAL HISTORY : Hypercholesterolemia. Arthritis. Dementia. Hypertension. SURGICAL HISTORY : Appendectomy. Cholecystectomy. Bilateral knee repalcements. ENCOUNTER: Subsequent ACUITY: 1 day PAIN SCORE: Non-responsive. LOCATION: chest FINDINGS: A single view of the chest demonstrates the lungs to be symmetrically aerated without evidence of mas s, infiltrate or effusion. The cardiomediastinal contours are unremarkable. Osseous structures are intact. CONCLUSION: Normal examination. Prominent tortuosity of the aorta unchanged Cluadio Caballero MD on January 01, 2018 at 9:38 Board Certified Radiologist. This report was verified electronically.
[2018-01-01] MEDS ORDERED: Vancomycin Consult Pharmacy 1 EA OTHER SCH (09:45)
[2018-01-01 09:59] LABS: FREE T4 1.73 NG/DL (0.76-1.46)
[2018-01-01] MEDS ORDERED: VANCOMYCIN INJ 2,000 MG in SODIUM CHLORID 0.9% 500 ML INJ 500 ML IV ONE (10:00)
[2018-01-01] MEDS: SODIUM CHLORIDE 0.9% FLUSH 10 ML FLUSH IV FLUSH SCH ×2 (10:05→21:07)
--- NOTE | 2018-01-01 11:11 | EKG ---
Date Performed: 01/01/2018 Time Performed: 03:15:00 PTAGE: 87 years EKG: SINUS BRADYCARDIA WITH FIRST DEGREE AV BLOCK LOW QRS VOLTAGE IN PRECORDIAL LEADS NONSPECIFI C T-WAVE ABNORMALITY ABNORMAL ECG Since the prior tracing, there has been no significant change PREVIOUS TRACING : 10/15/2017 18.32 DOCTOR: Zina Briseno Interpretating Date/Time 01/01/2018 11:09:16
[2018-01-01] MEDS ORDERED: IOHEXOL 350 MG/ML 10 ML VIAL (for RAD DIAG) IVCONTRAST ONE (12:06)
--- NOTE | 2018-01-01 12:23 | RADRPT ---
EXAM DATE/TIME: 01/01/2018 11:50 [facility] COMPARISON: No previous studies available for comparison. INDICATIONS : Pyelonephritis. IV CONTRAST: 85 cc Omnipaque 350 (iohexol) IV ORAL CONTRAST: No oral contrast ingested. RADIATION DOSE: 20.94 CTDIvol (mGy) MEDICAL HISTORY : Seizures. Dementia. Cardiovascular diseaseHypertension. Schizophrenia. SURGICAL HISTORY : Appendectomy. Cholecystectomy. ENCOUNTER: Initial ACUITY: 1 day PAIN SCALE: 7/10 LOCATION: Abdomen TECHNIQUE: Volumetric scanning of the abdomen and pelvis was performed. Using automated exposure control and ad justment of the mA and/or kV according to patient size, radiation dose was kept as low as reasonably achievable to obtain optimal diagnostic quality images. DICOM format image data is available electro nically for review and comparison. FINDINGS: LOWER LUNGS: Mild by basilar airspace disease characteristic of mild atelectasis or scarring is noted. LIVER: Air is identified in the left hepatic biliary tree. The liver is otherwise unremarkable. There are no space occupying lesions. Portal vein is patent. SPLEEN: Normal size without lesion. PANCREAS: Within normal limits. Air is identified in the distal common bile duct which is not distended. KIDNEYS: A 1.4 cm cyst is identified in the lower pole of the right kidney. The kidneys are otherwise unremark able. There are no inflammatory changes, perinephric stranding or abnormal fluid collections. There i s no evidence of hydronephrosis. ADRENAL GLANDS: Within normal limits. VASCULAR: There is no aortic aneurysm. BOWEL/MESENTERY: The stomach, small bowel, and colon demonstrate no acute abnormality. There is no free intraperitone al air or fluid. ABDOMINAL WALL: Within normal limits. RETROPERITONEUM: There is no lymphadenopathy. BLADDER: A Nicolas catheter is noted in place. The urinary bladder wall is thickened and appears edematous. REPRODUCTIVE: Within normal limits. INGUINAL: There is no lymphadenopathy or hernia. MUSCULOSKELETAL: Advanced facet arthropathy is seen in the lower lumbar spine. There are no destructive lesions. CONCLUSION: 1. Thickened edematous urinary bladder wall characteristic of cystitis. 2. No findings characteristic of pyelonephritis. 3. Left hepatic biliary air which may be the result of recent intervention. Correlation recommended. 4. Advanced facet arthropathy. 5. Bibasilar scar versus atelectasis. Angelo Feliz MD on January 01, 2018 at 12:16 Board Certified Radiologist. This report was verified electronically.
[2018-01-01] MEDS: amLODIPine BESYLATE 5 MG TAB PO SCH (12:49)
--- NOTE | 2018-01-01 14:05 | PD.WCN.NOT ---
Wound Consult Description: Wound consult ordered by for lower extremities Communicated with: Juan VICK 4th floor [facility], Dr. Jack Recommendation: 1) Encourage patient to reposition every 2 hours for comfort and offloading 2) Cleanse bilateral lower extremities with warm soap and water rinse and pat dry. 3) Encourage patient to elevate lower extremities. 4) Apply Optifoam AG to open area and cover with rolled gauze secure with tape/ sterling bandage.Change every 5 days or as needed for exudate or dislodgement. 5) Follow up with out patient wound center Additional Information: Patient was seen today on 4th floor [facility] ICU by instructional writer and Juan VICK.Patient Alert in bed but very hard of hearing.Daughter present at bedside.Assessment of lower extremities patient has bilateral +3 pitting edema with faint erythema noted.Left lower extremity has open area to lateral tibial measuring 1.3cm x 1.5cm x <0.1cm wound base moist and pink tissue moderate serous drainage noted with no odor present.Right lower extremity has scant general weeping with no open area found scant serous drainage noted to underpad.Bilateral lower extremities cleansed with normal saline pat dry.Optifoam AG applied to open areas and covered with rolled gauze secured with sterling bandage/tape/date and signed.Patient tolerated wound care well .Policewoman spoke with daughter regarding compression therapy.Daughter states patient will not handle compression therapy well does not even like tight sock. Z[facility]ib Ramos [facility] Jan 01, 2018 14:05
--- NOTE | 2018-01-01 15:09 | MG ---
cc: Lacey Robles MD, Dalia 0 MD Olguin,Abhilash 0 EEG NUMBER: [id number] REFERRING PHYSICIAN: Sharif ROOM: PT 17 HISTORY: Awake, drowsy, sleep study with photic only. Last EEG in 2017 abnormal due to slowing. CT shows atrial changes, white matter changes, basal ganglia, lacunar left. Admitted with a seizure, first seizure was in October, found to have a low sodium. Currently on Synthroid and Ceftriaxone. DESCRIPTION OF RECORD: The patient has a background rhythm of 5-5.5 hertz, 20-40 microvolts. Symmetrically slow EKG, difficult to interpret by this one lead with time, eye movements, overall theta slowing. At times it looks as if she may have some delta as well. IMPRESSION: Abnormal EEG due to moderate slowing of background due to encephalopathic causes, no epileptic activity, clinical correlation. MD MARYBETH Musa/TRICIA , 02:53 PM , 03:08 PM
--- NOTE | 2018-01-01 15:18 | HHI.HCPN ---
Palliative care consulted to assist with goals of care for Ms. Rose. Palliative care spoke with daughter, Cata. She is unable to meet today but a family meeting is scheduled for tomorrow, Tuesday 01/02 around 2-3pm. Ms. Rose is , 2 children (1 daughter and 1 son). Daughter reports she has power of patent prosecution attorney reported to include health care. Requested copies. Daughter will be calling back with patent prosecution attorney information if she is unable to find copies. Palliative care will continue to follow throughout hospitalization. Tati Pedro MSW, ADOLESCENT PSYCHIATRIST Jan 01, 2018 15:18
[2018-01-01] MEDS: cefTRIAXone INJ 1,000 MG in SODIUM CHLORIDE 0.9% INJ 100 ML IV SCH (16:17)
--- NOTE | 2018-01-01 21:57 | MB ---
cc: Luiz Chávez MD, PhD DATE OF CONSULT: REASON FOR CONSULTATION: New seizure. HISTORY OF PRESENT ILLNESS: Ms. Rose is an 87-year-old woman who has a history of dementia who developed confusion, decreased appetite and nausea. Also developed what appeared to be a generalized seizure clenching her face and upper arms with tremoring fashion lasting about 5 minutes after which she was unconscious for a postictal period of time. No prior history of seizures. She was thought to be septic, possibly related to UTI. PAST MEDICAL HISTORY: History of hyponatremia, new onset seizure, peripheral artery disease. CURRENT MEDICATIONS: Here: Vancomycin, Synthroid, ceftriaxone, amlodipine, Lorazepam p.r.n. NEUROLOGIC EXAMINATION: VITAL SIGNS: Blood pressure is 102/42, pulse is 60, respirations are 23, temperature 97.8. HIGHER CORTICAL FUNCTION: She is alert, disoriented to date and place. Has poor recent and remote memory. Follows simple commands. Cranial nerves intact. Motor examination is normal with no focal abnormality. CT of the brain: Stable chronic ischemic changes are identified. 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 No acute change. Last white count 6800, hemoglobin 10.3, hematocrit 32%, platelet count 190,000. Sodium is 128, early it was 124; potassium 3.7, chloride 95, CO2 of 26, BUN of 15, creatinine 0.63. IMPRESSION: New onset seizure. This could be related to the hyponatremia. No sign of central nervous system infection at the present time. RECOMMENDATIONS: We recommend starting Keppra 500 mg b.i.d. We will obtain an MRI of the brain. I did review the EEG showing encephalopathic changes without any ongoing epileptiform discharges. Luiz Chávez MD, PhD RADHA/GHAZALA , 09:37 PM , 09:56 PM
[2018-01-01] MEDS: levETIRAcetam 500 MG TAB PO SCH (22:45)
[2018-01-02] VITALS (33 sets, daily range): BP systolic 83–164; BP diastolic 35–70; PULSE 44–58; RESP 13–40; TEMP 96–98.9; O2SAT 91–100
[2018-01-02] MEDS: SODIUM CHLOR 0.9% 1000 ML INJ 1,000 ML IV SCH (04:47)
[2018-01-02] MEDS: cefTRIAXone INJ 1,000 MG in SODIUM CHLORIDE 0.9% INJ 100 ML IV SCH ×2 (04:47→17:00)
[2018-01-02 05:04] LABS: CALCIUM 8.4 MG/DL (8.5-10.1)
[2018-01-02 05:05] LABS: BICARBONATE 24.9 MEQ/L (21.0-32.0)
[2018-01-02 05:08] LABS: CREATININE 0.92 MG/DL (0.50-1.00)
[2018-01-02 05:11] LABS: BASOPHIL # 0.3 TH/MM3 (0-0.2); BASOPHIL % 2.9 % (0.0-2.0); EOSINOPHIL % 0.4 % (0.0-4.0); HEMATOCRIT 26.9 % (35.0-46.0); HEMOGLOBIN 9.1 GM/DL (11.6-15.3); LYMPH % 18.7 % (9.0-44.0); LYMPHOCYTE # 1.8 TH/MM3 (1.0-4.8); MEAN CELL VOLUME 86.6 FL (80.0-100.0); MEAN CORPUSCULAR HEMOGLOBIN 29.4 PG (27.0-34.0); MEAN CORPUSCULAR HGB CONC 33.9 % (32.0-36.0); MEAN PLATELET VOLUME 7.9 FL (7.0-11.0); MONO % 13.3 % (0.0-8.0); MONOCYTE # 1.3 TH/MM3 (0-0.9); NEUT % 64.7 % (16.0-70.0); PLATELET COUNT 166 TH/MM3 (150-450); RED BLOOD COUNT 3.11 MIL/MM3 (4.00-5.30); RED CELL DISTRIBUTION WIDTH 15.1 % (11.6-17.2); WHITE BLOOD COUNT 9.4 TH/MM3 (4.0-11.0)
[2018-01-02] MEDS: LEVOTHYROXINE SODIUM 50 MCG TAB PO SCH (05:36)
[2018-01-02] MEDS: SODIUM CHLORIDE 1 GRAM TAB PO SCH ×2 (09:00→20:32)
[2018-01-02] MEDS: levETIRAcetam 500 MG TAB PO SCH ×2 (09:00→20:32)
[2018-01-02] MEDS: SODIUM CHLORIDE 0.9% FLUSH 10 ML FLUSH IV FLUSH SCH ×2 (09:00→20:32)
[2018-01-02] MEDS: amLODIPine BESYLATE 5 MG TAB PO SCH (09:00)
[2018-01-02] MEDS: VANCOMYCIN INJ 1,750 MG in SODIUM CHLORID 0.9% 500 ML INJ 500 ML IV SCH (10:00)
--- NOTE | 2018-01-02 15:51 | HHI.PR ---
Subjective Remarks Patient seen and examined today for follow-up on seizure, hypothermia. Patient is doing much better. She is sitting in bed eating. She is very pleasant and talkative. Discussed with her and her daughter at bedside. Still awaiting MRI to be performed. Patient also with positive blood cultures. All the findings were explained to and discussed with daughter at bedside. Objective Vitals Vital Signs Date Time Temp Pulse Resp B/P (MAP) Pulse Ox O2 Delivery O2 Flow Rate FiO2 01/02/18 14:01 98.9 52 28 113/58 (76) 01/02/18 14:00 52 36 /18 14:00 51 01/02/18 13:01 48 13 118/52 (74) 97 01/02/18 13:00 48 17 96 01/02/18 12:07 46 14 108/47 (67) 98 01/02/18 12:01 50 19 83/66 (72) 98 01/02/18 12:00 44 13 99 01/02/18 12:00 58 01/02/18 11:01 97.0 46 29 122/51 (74) 97 01/02/18 11:00 46 28 97 //18 10:01 50 20 106/47 (66) 01/02/18 10:00 50 20 //18 10:00 51 //18 09:01 50 22 112/59 (76) 100 /18 09:00 50 29 100 //18 08:01 50 22 111/43 (65) 95 18 08:00 52 17 96 //18 08:00 58 /2/18 07:01 52 22 113/47 (69) 97 18 07:00 52 27 95 18 06:02 54 29 95/46 (62) 91 /218 06:00 51 /218 05:01 56 31 90/57 (68) 96 18 04:01 97.9 54 36 97/35 (55) 97 18 04:00 55 18 03:01 52 24 96/43 (60) 95 18 02:01 54 29 102/47 (65) 98 18 02:00 55 /18 01:03 56 37 98/39 (58) 93 01/02/18 01:01 56 36 84/45 (58) 93 01/02/18 00:01 98.5 56 21 104/50 (68) 97 01/02/18 00:00 58 01/01/18 23:01 56 33 100/52 (68) 91 01/01/18 22:01 60 33 87/52 (64) 98 01/01/18 22:00 58 01/01/18 21:01 60 39 95/50 (65) 100 01/01/18 20:00 59 01/01/18 20:00 97.8 60 41 102/42 (62) 97 01/01/18 19:01 66 40 101/50 (67) 96 01/01/18 18:00 64 01/01/18 18:00 64 27 107/53 (71) 98 01/01/18 17:00 66 24 117/48 (71) 96 01/01/18 16:00 98.2 62 23 92/44 (60) 94 01/01/18 16:00 62 I/O 01/01/18 01/01/18 01/01/18 01/02/18 01/02/18 01/02/18 07:00 15:00 23:00 07:00 15:00 23:00 Intake Total 2100 ml 550 ml 580 ml 1185 ml Output Total 650 ml 400 ml Balance 2100 ml 550 ml -70 ml 785 ml Intake Oral 480 ml 30 ml IV Total 2100 ml 550 ml 100 ml 1155 ml Output Urine Total 650 ml 400 ml # Bowel Movements 0 0 Result Diagram: 01/02/18 0435 01/02/18 0435 Objective Remarks GENERAL: Well-developed, well-nourished, in no acute distress. alert and orientated HEENT: Head is normocephalic without any lesions or masses noted. Facial features are symmetric. Eyes: Extraocular muscles are intact. Conjunctivae were clear. NECK: Supple without any masses. Trachea midline no deviation. No JVD, CARDIAC: Regular rhythm, regular rate. S1/S2 are heard. 2/6 ejection murmur, no gallops or rubs. LUNGS: Clear to auscultation bilaterally. No wheeze, rhonchi or rales. No use of accessory muscles on inspiration or expiration. ABDOMEN: Soft, nontender. Nondistended. Bowel sounds heard in all 4 quadrants. No organomegaly or masses. Negative rebound, negative guarding EXTREMITIES: 2+ pitting edema noted bilateral lower extremities., pulses are equal bilaterally. No cyanosis or clubbing. Legs are bandaged. Records reviewed from wound care nurse NEUROLOGY: Mood and affect appear appropriate. Cranial nerves II through XII grossly intact. Moving all extremities, speech is clear Procedures EEG: Abnormal EEG due to moderate slowing of background due to encephalopathic causes. No epileptic activity Urinary Catheter: Yes Assessment to: Continue Nicolas insert reason: Measure Accurate Output Vascular Central Line Catheter: No A/P Assessment and Plan Sepsis Positive blood cultures today, urinary tract infection CT scan does not indicate any pyelonephritis Chest x-ray does not indicate any acute abnormality Patient was started on Rocephin, vancomycin was added today Continue follow cultures Bacteremia Could be secondary to lower extremity cellulitis, wounds, possible contamination Patient has been started on vancomycin Repeat blood cultures Consult infectious disease for recommendations Hypothermia, resolved Unknown etiology could be secondary to sepsis, shock, seizure Status post warming blanket, infusion of warm saline Mixed alkalosis, improved Possibly due to initial seizure. Patient was hyperventilating and appears to be improved. Seizure Multifactorial with patient's presentation of alkalosis, hypothermia, sepsis. Seizure precautions EEG: Abnormal EEG due to moderate slowing of background due to encephalopathic causes. No epileptic activity Neurology consulted. Recommending MRI and starting Keppra 500 mg twice daily Hyponatremia, acute on chronic Patient does use salt tablets in outpatient setting for management Sodium is improving Hypothyroidism TSH 0.23, free T4 1 0.73 Levothyroxine dose decreased to 50 g daily DVT prevention Sequential compression devices Discharge Planning Palliative care is following the patient. Continue with monitoring the recommendations. We'll get physical therapy evaluation to evaluate for home with home health care versus rehabilitation facility Reilly Witt Jan 02, 2018 15:51
--- NOTE | 2018-01-02 16:21 | PD.CONS ---
Consult Service Palliative Care Consult Requested By Dr. Jack . Primary Care Physician Raul Cooper M.D. Reason for Consultation a. To assist with evaluation and management of symptoms including: Seizure, confusion b. To assist medical decision maker(s) with: better understanding of current medical conditions; weighing benefits/burdens of medical treatment options; making medical treatment decisions. HPI History of Present Illness This is a very pleasantly confused 87-year-old female admitted with seizure and increased confusion. Her previous seizure was October 15. At that time she was not placed on seizure medications. She lives with her daughter who states that she is chronically confused secondary to dementia. She has a history of chronic hyponatremia and is on sodium replacement tablets. Her sodium level on admission was 124. She had previously seen Dr. Hobbs for renal issues but has not seen him in some time. The daughter denies any excessive water intake, the patient is not on diuretics. Reported medications are Synthroid, sodium chloride tabs, atenolol and amlodipine from home. ED course: * Laboratory: Arterial blood gas shows pH 7.59, PCO2 26, PO2 171, HCO3 25, base excess +2.9, saturation 97%. Sodium 124, potassium 3.5, BUN 19, creatinine 0.83 , glucose 127, normal transaminase. WBC 6.8, hemoglobin 10.3, hematocrit 32.2, platelets 190. * Radiology: * CT of the brain without contrast shows stable senescent changes with moderate periventricular small vessel ischemic white matter demyelination and small left basal ganglia lacunar infarct. No acute intracranial abnormality. * Chest x-ray shows a normal examination with prominent tortuosity of the aorta , unchanged from previous exam. * CT of the abdomen and pelvis with contrast shows a thickened, edematous urinary bladder wall characteristic of cystitis, no findings characteristic of pyelonephritis, left hepatic biliary air which may be the result of recent intervention, advanced facet arthropathy, bibasilar scar versus atelectasis. Consultations * Wound care: Patient was found to have weeping edema of bilateral lower extremities with an open area to the lateral tibial measuring 1.3 x 1.5 cm with less than 1 cm wound base and moderate serous drainage. Recommending optive foam Ag with roll gauze secured with Albaro wrap to be changed every 5 days or as needed for soiling. * Neurology: Seizure possibly related to the hyponatremia. No sign of central nervous system infection. Keppra 500 mg twice daily. MRI of the brain requested. EEG showed encephalopathic changes without any ongoing epileptiform discharges. Patient seen in room 8404 in the presence of her daughter. Past medical, social and psychosocial history reviewed with daughter. Patient has dementia and is chronically confused. No history can be obtained from her. She denies any complaints of pain, nausea, chills, fever or shortness of breath. . Function/Cognitive Trajectory She lives at home with her daughter who assists her with her ADLs and mobility. Patient had previously been ambulatory in the home with a walker. She will likely continue to weaken with the extended bedrest being in ICU and will likely require therapy. She is chronically confused with a history of dementia , schizophrenia and depression. She had her first seizure in October 2017 and now presents with her second seizure. She had not previously been on seizure medication. . Review of Systems ROS Limitations: Altered Mental Status (Patient is confused and unable to provide their own ROS. 10 part ROS taken as best as possible from medical record and available family.) Constitutional: COMPLAINS OF: Fatigue, Generalized weakness Endocrine: DENIES: Abnorml menstrual pattern, Heat/cold intolerance, Polydipsia , Polyuria, Polyphagia Eyes: DENIES: Blurred vision, Diplopia, Eye inflammation, Eye pain, Vision loss , Photosensitivity, Double Vision, Blind spots Ears, nose, mouth, throat: COMPLAINS OF: Hearing loss Respiratory: DENIES: Apneas, Cough, Snoring, Wheezing, Hemoptysis, Sputum production, Shortness of breath Cardiovascular: COMPLAINS OF: Lower Extremity Edema Gastrointestinal: DENIES: Abdominal pain, Black stools, Bloody stools, Constipation, Diarrhea, Nausea, Vomiting, Difficulty Swallowing, Anorexia, Dyspepsia or heartburn, Excessive gas, Bloating, Vomiting blood Genitourinary: DENIES: Abnormal vaginal bleeding, Dysmenorrhea, Dyspareunia, Sexual dysfunction, Urinary frequency, Urinary incontinence, Urgency, Hematuria , Dysuria, Nocturia, Vaginal discharge, Hesitancy, Dribbling, Decreased stream Musculoskeletal: DENIES: Joint pain, Muscle aches, Stiffness, Joint Swelling, Back pain, Neck pain, Decreased range of motion Integumentary: DENIES: Abnormal pigmentation, Pruritus, Rash, Nail changes, Breast masses, Breast skin changes, Nipple discharge, Nodules, Tumors, Excessive dryness, Non-healing sores Hematologic/Lymphatics: DENIES: Bruising, Lymphadenopathy, Prolonged bleed w/ proced, History of transfusions Immunologic/Allergic: DENIES: Eczema, Urticaria Neurologic: COMPLAINS OF: Seizures Psychiatric: COMPLAINS OF: Confusion, Depression Past Family Social History Coded Allergies: chlorpromazine (Unverified Allergy, Mild, 10/15/17) Past Medical History Anxiety Hypertension Hypothyroidism Depression Dementia Schizophrenia Hyperlipidemia Arthritis Seizures Chronic hyponatremia . Past Surgical History Appendectomy Cholecystectomy Bilateral knee replacements . Reported Medications Reported Meds & Active Scripts Active Synthroid (Levothyroxine Sodium) 100 Mcg Tab 100 Mcg PO DAILY@0600 Sodium Chloride 1 Gram Tab 1 Gm PO BID Reported Atenolol 25 Mg Tab 12.5 Mg PO DAILY Amlodipine (Amlodipine Besylate) 5 Mg Tab 5 Mg PO DAILY . Current Medications Medications (Trade) Dose Ordered Sig/Rosita Route Start Time Stop Time Status Last Admin (Norvasc) 5 mg DAILY PO 01/01/18 09:00 01/01/18 12:49 (Sodium Chloride) 1 gm BID PO 01/01/18 09:00 01/02/18 09:00 Sodium Chloride 1,000 ml @ 25 mls/hr Q24H IV 01/01/18 04:56 01/02/18 04:47 (NS Flush) 2 ml UNSCH PRN IV FLUSH 01/01/18 05:00 (NS Flush) 2 ml BID IV FLUSH 01/01/18 09:00 01/02/18 09:00 (Ativan Inj) 2 mg UNSCH PRN IV PUSH 01/01/18 05:00 Ceftriaxone Sodium 1000 mg/ Sodium Chloride 100 ml @ 200 mls/hr Q12H IV 01/01/18 17:00 01/02/18 04:47 Pharmacy Profile Note 0 ml @ 0 mls/hr UNSCH OTHER 01/01/18 09:45 Vancomycin HCl 1750 mg/Sodium Chloride 517.5 ml @ 257.5 mls/ hr Q24H IV 01/02/18 10:00 01/02/18 10:00 Miscellaneous Information SPECIFIC LAB TO BE ... ONCE ONCE .XX 01/04/18 09:45 01/04/18 09:46 (Synthroid) 50 mcg DAILY@0600 PO 01/02/18 06:00 01/02/18 05:36 (Keppra) 500 mg Q12HR PO 01/01/18 21:45 01/02/18 09:00 Family History Mother at 78 of a myocardial infarction with a history of hypertension. Father at age 68 of a ruptured aneurysm. . Substance Use Tobacco: Quit smoking in 1988. Alcohol: Has a glass of red wine in the evening and 1 or 2 beers per week. Prescription med abuse: No history. Illicits: No history. . Psychosocial History She was born in [facility] and some of her life in [place] and [place] prior to moving to [place] in 1977. She was in [place] and had one daughter with whom she lives and one son lives in [place]. She and remarried and was in 1993. . Spiritual/Cultural Factors She is of the [employer]. . Living Will: Completed, but not made available Health Care Surrogate: Completed, but not made available Durable Power of Showcase Maker: Completed, but not made available Health Care Surrogate(s): The daughter states that she is the healthcare surrogate but has not produced paperwork at this time. Documented care wishes: Daughter states she has a living will but it has not been produced at this time. . Today's verbally stated goals: Patient is confused and unable to state her own goals. . Family/friends goals: At this time she would wish her mother to be a full code with aggressive resuscitation. She states that she is aware that if she does not do well on the ventilator she will have to withdraw her from support. . Ethical and Legal Issues None noted. . Physical Exam Vital Signs Date Time Temp Pulse Resp B/P (MAP) Pulse Ox O2 Delivery O2 Flow Rate FiO2 01/02/18 14:01 98.9 52 28 113/58 (76) 01/02/18 14:00 52 36 01/02/18 14:00 51 01/02/18 13:01 48 13 118/52 (74) 97 01/02/18 13:00 48 17 96 01/02/18 12:07 46 14 108/47 (67) 98 01/02/18 12:01 50 19 83/66 (72) 98 01/02/18 12:00 44 13 99 01/02/18 12:00 58 01/02/18 11:01 97.0 46 29 122/51 (74) 97 318 11:00 46 28 97 //18 10:01 50 20 106/47 (66) 18 10:00 50 20 /18 10:00 51 /18 09:01 50 22 112/59 (76) 100 /18 09:00 50 29 100 /18 08:01 50 22 111/43 (65) 95 01/02/18 08:00 52 17 96 /18 08:00 58 /18 07:01 52 22 113/47 (69) 97 18 07:00 52 27 95 18 06:02 54 29 95/46 (62) 91 01/02/18 06:00 51 01/02/18 05:01 56 31 90/57 (68) 96 01/02/18 04:01 97.9 54 36 97/35 (55) 97 01/02/18 04:00 55 01/02/18 03:01 52 24 96/43 (60) 95 01/02/18 02:01 54 29 102/47 (65) 98 01/02/18 02:00 55 /18 01:03 56 37 98/39 (58) 93 01/02/18 01:01 56 36 84/45 (58) 93 01/02/18 00:01 98.5 56 21 104/50 (68) 97 01/02/18 00:00 58 /11/20 23:01 56 33 100/52 (68) 91 01/01/18 22:01 60 33 87/52 (64) 98 01/01/18 22:00 58 /11/20 21:01 60 39 95/50 (65) 100 01/01/18 20:00 59 3/11/20 20:00 97.8 60 41 102/42 (62) 97 01/01/18 19:01 66 40 101/50 (67) 96 01/01/18 18:00 64 3/18 18:00 64 27 107/53 (71) 98 01/01/18 17:00 66 24 117/48 (71) 96 01/01/18 16:00 98.2 62 23 92/44 (60) 94 01/01/18 16:00 62 . Exam CONSTITUTIONAL/GENERAL: This is an elderly, morbidly obese female sitting up in bed in no acute distress. TUBES/LINES/DRAINS: PIV in both right and left antecubital. Nicolas catheter. SKIN: No jaundice, rashes, or lesions. Ecchymoses on upper extremities. Bilateral lower extremities wrapped for wound and edema. Skin temperature appropriate. Not diaphoretic. HEAD: Atraumatic. Normocephalic. EYES: Pupils equal and round and reactive. Extraocular motions intact. No scleral icterus. No injection or drainage. Fundi not examined. ENT: Hearing significantly decreased. Nose without bleeding or purulent drainage. Throat without visible erythema, exudates, masses, or lesions. NECK: Trachea midline. Supple, nontender. No palpable thyroid enlargement or nodularity. CARDIOVASCULAR: S1, S2, regular rate, bradycardic rhythm. No rub murmur or gallop auscultated. RESPIRATORY/CHEST: Breath sounds diminished with expiratory rhonchi. GASTROINTESTINAL: Abdomen obese, soft, non-tender, nondistended. No hepato- splenomegaly, or palpable masses. No guarding. Bowel sounds present. GENITOURINARY: Without palpable bladder distension. Nicolas catheter in place. MUSCULOSKELETAL: Extremities with 2+ edema above the Albaro wraps on the lower legs. Toes pink with 2+ edema. LYMPHATICS: No palpable cervical or supraclavicular adenopathy. NEUROLOGICAL: Awake and alert. Motor and sensory grossly within normal limits. Follows commands.rp. Moves all extremities. PSYCHIATRIC: Confused, cooperative. . Diagnostic Tests Laboratory Laboratory Tests Test 01/01/18 02:35 01/01/18 02:40 01/01/18 03:08 01/01/18 03:32 Blood Gas Puncture Site RT RADIAL Blood Gas Patient Temperature 98.6 Blood Gas HCO3 25 mmol/L (22-26) Blood Gas Base Excess 2.9 mmol/L (-2-2) Blood Gas Oxygen Saturation 97 % (90-100) Arterial Blood pH 7.59 (7.380-7.420) Arterial Blood Partial Pressure CO2 26 mmHG (38-42) Arterial Blood Partial Pressure O2 171 mmHG (61-120) Arterial Blood Oxygen Content 14.6 Vol % (12.0-20.0) Arterial Blood Carboxyhemoglobin 0.0 % (0-4) Arterial Blood Methemoglobin 0.4 % (0-2) Blood Gas Hemoglobin 10.5 G/DL (12.0-16.0) Blood Gas Inspired Oxygen 21 % Blood Urea Nitrogen 19 MG/DL (7-18) Creatinine 0.83 MG/DL (0.50-1.00) Random Glucose 127 MG/DL (74-106) Total Protein 6.9 GM/DL (6.4-8.2) Albumin 3.1 GM/DL (3.4-5.0) Calcium Level 9.2 MG/DL (8.5-10.1) Alkaline Phosphatase 72 U/L (45-117) Aspartate Amino Transf (AST/SGOT) 32 U/L (15-37) Alanine Aminotransferase (ALT/SGPT) 30 U/L (10-53) Total Bilirubin 0.2 MG/DL (0.2-1.0) Sodium Level 124 MEQ/L (136-145) Potassium Level 3.5 MEQ/L (3.5-5.1) Chloride Level 88 MEQ/L (98-107) Carbon Dioxide Level 23.7 MEQ/L (21.0-32.0) Anion Gap 12 MEQ/L (5-15) Estimat Glomerular Filtration Rate 65 ML/MIN (>89) Troponin I LESS THAN 0.02 NG/ML White Blood Count 6.8 TH/MM3 (4.0-11.0) Red Blood Count 3.71 MIL/MM3 (4.00-5.30) Hemoglobin 10.3 GM/DL (11.6-15.3) Hematocrit 32.2 % (35.0-46.0) Mean Corpuscular Volume 86.8 FL (80.0-100.0) Mean Corpuscular Hemoglobin 27.8 PG (27.0-34.0) Mean Corpuscular Hemoglobin Concent 32.0 % (32.0-36.0) Red Cell Distribution Width 14.6 % (11.6-17.2) Platelet Count 190 TH/MM3 (150-450) Mean Platelet Volume 7.8 FL (7.0-11.0) Neutrophils (%) (Auto) 77.5 % (16.0-70.0) Lymphocytes (%) (Auto) 15.1 % (9.0-44.0) Monocytes (%) (Auto) 6.3 % (0.0-8.0) Eosinophils (%) (Auto) 0.4 % (0.0-4.0) Basophils (%) (Auto) 0.7 % (0.0-2.0) Neutrophils # (Auto) 5.4 TH/MM3 (1.8-7.7) Lymphocytes # (Auto) 1.0 TH/MM3 (1.0-4.8) Monocytes # (Auto) 0.4 TH/MM3 (0-0.9) Eosinophils # (Auto) 0.0 TH/MM3 (0-0.4) Basophils # (Auto) 0.0 TH/MM3 (0-0.2) CBC Comment AUTO DIFF Differential Comment AUTO DIFF CONFIRMED Platelet Estimate NORMAL (NORMAL) Platelet Morphology Comment NORMAL (NORMAL) Red Cell Morphology Comment NORMAL (NORMAL) Urine Color YELLOW (YELLW/STRAW) Urine Turbidity HAZY (CLEAR) Urine pH 7.0 (5.0-8.5) Urine Specific [place] 1.015 (1.002-1.035) Urine Protein 30 mg/dL (NEG-TRACE) Urine Glucose (UA) NEG mg/dL (NEG) Urine Ketones NEG mg/dL (NEG) Urine Occult Blood LARGE (NEG) Urine Nitrite POS (NEG) Urine Bilirubin NEG (NEG) Urine Leukocyte Esterase LARGE (NEG) Urine RBC 15-19 /hpf (0-3) Urine WBC 100-200 /hpf (0-5) Urine WBC Clumps MOD (NONE) Urine Squamous Epithelial Cells 0-5 /hpf (0-5) Urine Bacteria MOD /hpf (NONE) Microscopic Urinalysis Comment CATH-CULTURE IND Test 01/01/18 03:40 01/01/18 07:40 01/01/18 13:30 01/02/18 04:35 Lactic Acid Level 1.8 mmol/L (0.4-2.0) Blood Urea Nitrogen 15 MG/DL (7-18) 18 MG/DL (7-18) Creatinine 0.63 MG/DL (0.50-1.00) 0.92 MG/DL (0.50-1.00) Random Glucose 73 MG/DL (74-106) 74 MG/DL (74-106) Calcium Level 8.1 MG/DL (8.5-10.1) 8.4 MG/DL (8.5-10.1) Sodium Level 128 MEQ/L (136-145) 130 MEQ/L (136-145) Potassium Level 3.7 MEQ/L (3.5-5.1) 4.3 MEQ/L (3.5-5.1) Chloride Level 95 MEQ/L (98-107) 98 MEQ/L (98-107) Carbon Dioxide Level 26.7 MEQ/L (21.0-32.0) 24.9 MEQ/L (21.0-32.0) Anion Gap 6 MEQ/L (5-15) 7 MEQ/L (5-15) Estimat Glomerular Filtration Rate 89 ML/MIN (>89) 57 ML/MIN (>89) Free Thyroxine 1.73 NG/DL (0.76-1.46) Thyroid Stimulating Hormone 3rd Gen 0.233 uIU/ML (0.358-3.740) Salicylates Level 2.5 MG/DL (2.8-20.0) Nasal Screen MRSA (PCR) MRSA NOT DETECTED (NOT White Blood Count 9.4 TH/MM3 (4.0-11.0) Red Blood Count 3.11 MIL/MM3 (4.00-5.30) Hemoglobin 9.1 GM/DL (11.6-15.3) Hematocrit 26.9 % (35.0-46.0) Mean Corpuscular Volume 86.6 FL (80.0-100.0) Mean Corpuscular Hemoglobin 29.4 PG (27.0-34.0) Mean Corpuscular Hemoglobin Concent 33.9 % (32.0-36.0) Red Cell Distribution Width 15.1 % (11.6-17.2) Platelet Count 166 TH/MM3 (150-450) Mean Platelet Volume 7.9 FL (7.0-11.0) Neutrophils (%) (Auto) 64.7 % (16.0-70.0) Lymphocytes (%) (Auto) 18.7 % (9.0-44.0) Monocytes (%) (Auto) 13.3 % (0.0-8.0) Eosinophils (%) (Auto) 0.4 % (0.0-4.0) Basophils (%) (Auto) 2.9 % (0.0-2.0) Neutrophils # (Auto) 6.0 TH/MM3 (1.8-7.7) Lymphocytes # (Auto) 1.8 TH/MM3 (1.0-4.8) Monocytes # (Auto) 1.3 TH/MM3 (0-0.9) Eosinophils # (Auto) 0.0 TH/MM3 (0-0.4) Basophils # (Auto) 0.3 TH/MM3 (0-0.2) CBC Comment AUTO DIFF Differential Comment AUTO DIFF CONFIRMED Platelet Estimate NORMAL (NORMAL) Platelet Morphology Comment NORMAL (NORMAL) Red Cell Morphology Comment NORMAL (NORMAL) . Result Diagram: 01/02/1843401/02/18434 Microbiology Microbiology Date/Time Source Procedure Growth Status 01/01/18 03:48 Blood Peripheral Aerobic Blood Culture - Preliminary Gram Positive Cocci Resulted 01/01/18 03:48 Anaerobic Blood Culture - Preliminary Staphylococcus Epidermidis Resulted 01/01/18 03:40 Blood Peripheral Aerobic Blood Culture - Preliminary Gram Positive Cocci Resulted 01/01/18 03:40 Blood Peripheral Anaerobic Blood Culture - Preliminary NO GROWTH IN 1 DAY Resulted 01/01/18 03:32 Urine Catheterized Urine Urine Culture - Preliminary Gram Negative Jose Resulted Imaging Last Impressions Head CT 01/01/18 0000 Signed Impressions: Service Date/Time: January 04:40 - CONCLUSION: 1. Stable senescent changes with moderate periventricular small vessel ischemic white matter demyelination and small left basal ganglia lacunar infarct. 2. No acute intracranial abnormality. Fernie Muñoz MD Chest X-Ray 01/01/18 0000 Signed Impressions: Service Date/Time: January 09:27 - CONCLUSION: Normal examination. Prominent tortuosity of the aorta unchanged Claudio Caballero MD Abdomen/Pelvis CT 01/01/18 0000 Signed Impressions: Service Date/Time: January 11:50 - CONCLUSION: 1. Thickened edematous urinary bladder wall characteristic of cystitis. 2. No findings characteristic of pyelonephritis. 3. Left hepatic biliary air which may be the result of recent intervention. Correlation recommended. 4. Advanced facet arthropathy. 5. Bibasilar scar versus atelectasis. Angelo Feliz MD . Patient/Family Conference Present at Family Conference: Spoke with the daughter Cata at bedside. Reviewed palliative care and focus. Reviewed the below listed items addressed CODE STATUS, goals of care and patient's clinical findings. . Family Conference Time (mins): 40 Family Conference Location: Bedside Issues Discussed: * Palliative care role, purpose, approach * Additional medical, psychosocial, and spiritual history * Patients general health, functional status, and cognitive changes in the months leading up to the current hospitalization * Patient/family understanding of the current medical problems * Patient/family understanding of prognosis * Patients goals of care as best understood from advance directives and/or conversations and/or values * Current medical treatment options and benefits/burdens of those options * Likely scenarios comparing ongoing aggressive care with a transition to comfort measures only * Questions answered to the best of my ability * Palliative care contact information provided Assessment and Plan Disease Oriented Problem List: (1) Lower extremity edema (2) Dyspnea on exertion (3) Hyponatremia (4) Schizophrenia (5) Urinary tract infection (6) Seizure Symptom Scale: (1) Confusion 0-10 Scale: Unable to quantify (Patient confused.) (2) Seizure 0-10 Scale: Unable to quantify (Patient confused.) Pertinent Non-Medical Issues Psychosocial:She was born in [facility] and some of her life in [place] and [place] prior to moving to [place] in 1977. She was in [place] and had one daughter with whom she lives and one son lives in [place]. She and remarried and was in 1993. Spiritual: She is at the [employer]. Legal: No legal issues noted. Ethical issues impacting care: No ethical issues noted. . Important Contacts Daughter: Cata Garza Home phone , cell Son: Noel N[place] . Prognosis Her prognosis is guarded. She is chronically hyponatremic in spite of taking sodium chloride tablets. She was previously evaluated by nephrology and found to have low cortisol as well and was recommended to follow-up with an tire and lube technician to evaluate for possible adrenal insufficiency. She has dementia, schizophrenia and depression. She has now developed seizures. She is likely to have further complications and decline with recurrent hospitalizations. . Code Status: Full Code Plan PLAN: Legal decision maker: Patient is confused and not capacitated to make her own decisions. Her daughter states she is the primary healthcare surrogate however paperwork has not been produced. By [place] statute, decision-making would be shared by the majority of adult children. The patient's daughter and son are jointly cooperating to make decisions. Goals: Aggressive CODE STATUS: FULL CODE SYMPTOMS: * Seizure: She is chronically hyponatremic which may be contributing to her low seizure threshold. Her first seizure was in October 2017 and she was not discharged home on antiseizure medication. Since this recurrence, she has been started on Keppra and neurology is monitoring. She had previously been seen by Dr. Georges Hobbs for nephrology for an unknown cause. Would recommend continued follow-up with nephrology as an outpatient. She had previously been recommended a fluid restriction by Dr. Moe, who saw her in the hospital. Would recommend following that recommendation on this admission. * Confusion: She has baseline dementia and schizophrenia and has been confused for quite some time according to her daughter. She states that this is the patient's normal level of dementia and confusion. No agitation noted at this time. Would continue current management. SUMMARY This is a pleasantly confused and demented 87-year-old female who resides with her daughter, admitted with seizure, hyponatremia and UTI. The daughter wishes full resuscitative measures to be taken and full CODE STATUS has been entered. She has severe bilateral lower extremity edema which has now caused a wound to the left lower extremity placing her at increased risk for infection. She is likely to continue to experience complication and decline with recurrent hospitalizations. Palliative care will continue to follow the patient during hospital course as condition evolves, to assist patient/decision-maker with understanding of their medical conditions, weighing benefits/burdens of treatment options, for clarification of goals of treatment. Additionally will assist with any symptoms of palliative concern. . Time Spent Time Periods: 2: 00-3: 15 Total Floor Time (mins): 75 Face to Face Time (mins): 40 >50% Counseling/Coord of Care: Yes Thank you for the opportunity to participate in the care of Ms. Rose. Attestation To help prompt me to consider important information that might be impacting today's encounter and assessment, information from prior notes written by myself or my colleagues may have been "brought forward" into today's note. My signature on this note, however, is an attestation that I personally performed the exam, history, and/or decision-making noted today, and, unless otherwise indicated, the interactions with patient, family, and staff as well as the review of records all occurred today. I also attest that the listed assessment and stated plan reflect my best clinical judgment today based on the combination of historical information, prior notes, and today's exam/ interactions. When time spent is documented, it refers only to time spent today by the signer, or if indicated, combined time spent today by collaborating physician/nurse practitioner. . Ally Neumann Jan 02, 2018 4:19 pm
--- NOTE | 2018-01-02 16:27 | HHI.FF ---
Face to Face Verification Diagnosis: (1) Hyponatremia (2) Lower extremity edema (3) Seizure (4) Hypothermia (5) Urinary tract infection Physical Therapy Order: Evaluate and Treat, Improve ambulation, Strength and gait training Home Health Nursing Order: Medical education Signs/symptoms of disease process Wound care and dressing changes Nursing assessment with vital signs I have seen patient Cata Rose on 01/02/18. My clinical findings support the need for the requested home health care services because: Deconditioned w/ increased weakness Limited ability to care for self I certify that my clinical findings support that this patient is homebound because: Unsteady gait/balance Unsafe to leave home unassisted Reilly Witt Jan 02, 2018 16:27
--- NOTE | 2018-01-02 19:52 | HHI.PR ---
Review/Management Diagnosis dementia secondary SZ Plan continue keppra Diagnosis/Plan: Subjective Subjective Comments No acute events reported No sz tolerating keppra Active Medications Current Medications Medications (Trade) Dose Ordered Sig/Rosita Route Start Time Stop Time Status Last Admin (Norvasc) 5 mg DAILY PO 01/01/18 09:00 01/01/18 12:49 (Sodium Chloride) 1 gm BID PO 01/01/18 09:00 01/02/18 09:00 Sodium Chloride 1,000 ml @ 25 mls/hr Q24H IV 01/01/18 04:56 01/02/18 04:47 (NS Flush) 2 ml UNSCH PRN IV FLUSH 01/01/18 05:00 (NS Flush) 2 ml BID IV FLUSH 01/01/18 09:00 01/02/18 09:00 (Ativan Inj) 2 mg UNSCH PRN IV PUSH 01/01/18 05:00 Ceftriaxone Sodium 1000 mg/ Sodium Chloride 100 ml @ 200 mls/hr Q12H IV 01/01/18 17:00 01/02/18 17:00 Pharmacy Profile Note 0 ml @ 0 mls/hr UNSCH OTHER 01/01/18 09:45 Vancomycin HCl 1750 mg/Sodium Chloride 517.5 ml @ 257.5 mls/ hr Q24H IV 01/02/18 10:00 01/02/18 10:00 Miscellaneous Information SPECIFIC LAB TO BE NICOLE... ONCE ONCE .XX 01/04/18 09:45 01/04/18 09:46 (Synthroid) 50 mcg DAILY@0600 PO 01/02/18 06:00 01/02/18 05:36 (Keppra) 500 mg Q12HR PO 01/01/18 21:45 01/02/18 09:00 Allergies Allergies Coded Allergies chlorpromazine (Unverified Allergy, Mild, 10/15/17) Review of Systems All other ROS: ROS reviewed as documented in chart Exam I&O / VS 01/02/18 01/02/18 01/03/18 15:00 23:00 07:00 Output Total 450 ml Balance -450 ml Output Urine Total 450 ml # Bowel Movements 1 Vital Signs Date Time Temp Pulse Resp B/P (MAP) Pulse Ox O2 Delivery O2 Flow Rate FiO2 01/02/18 16:00 58 3/2/18 15:01 98.0 54 37 104/44 (64) 3/2/18 15:00 54 40 3/2/18 14:01 98.9 52 28 113/58 (76) 3//18 14:00 52 36 3/2/18 14:00 51 3/2/18 13:01 48 13 118/52 (74) 97 3/2/18 13:00 48 17 96 3//18 12:07 46 14 108/47 (67) 98 //18 12:01 50 19 83/66 (72) 98 3/2/18 12:00 44 13 99 //18 12:00 58 /2/18 11:01 97.0 46 29 122/51 (74) 97 //18 11:00 46 28 97 //18 10:01 50 20 106/47 (66) 3//18 10:00 50 20 //18 10:00 51 //18 09:01 50 22 112/59 (76) 100 //18 09:00 50 29 100 3//18 08:01 50 22 111/43 (65) 95 //18 08:00 52 17 96 //18 08:00 58 //18 07:01 52 22 113/47 (69) 97 //18 07:00 52 27 95 //18 06:02 54 29 95/46 (62) 91 //18 06:00 51 3//18 05:01 56 31 90/57 (68) 96 //18 04:01 97.9 54 36 97/35 (55) 97 3/2/18 04:00 55 /2/18 03:01 52 24 96/43 (60) 95 3/2/18 02:01 54 29 102/47 (65) 98 3//18 02:00 55 3/2/18 01:03 56 37 98/39 (58) 93 3//18 01:01 56 36 84/45 (58) 93 3//18 00:01 98.5 56 21 104/50 (68) 97 /2/18 00:00 58 3//18 23:01 56 33 100/52 (68) 91 3/18 22:01 60 33 87/52 (64) 98 01/01/18 22:00 58 01/01/18 21:01 60 39 95/50 (65) 100 01/01/18 20:00 59 01/01/18 20:00 97.8 60 41 102/42 (62) 97 Exam Comments lethargic but arousable follows simple commands. confused and disoriented CN intact MOTOR 5/5 BUE Objective Micro and Labs Laboratory Tests Test 01/02/18 04:35 White Blood Count 9.4 Red Blood Count 3.11 Hemoglobin 9.1 Hematocrit 26.9 Mean Corpuscular Volume 86.6 Mean Corpuscular Hemoglobin 29.4 Mean Corpuscular Hemoglobin Concent 33.9 Red Cell Distribution Width 15.1 Platelet Count 166 Mean Platelet Volume 7.9 Neutrophils (%) (Auto) 64.7 Lymphocytes (%) (Auto) 18.7 Monocytes (%) (Auto) 13.3 Eosinophils (%) (Auto) 0.4 Basophils (%) (Auto) 2.9 Neutrophils # (Auto) 6.0 Lymphocytes # (Auto) 1.8 Monocytes # (Auto) 1.3 Eosinophils # (Auto) 0.0 Basophils # (Auto) 0.3 CBC Comment AUTO DIFF Differential Comment AUTO DIFF CONFIRMED Platelet Estimate NORMAL Platelet Morphology Comment NORMAL Red Cell Morphology Comment NORMAL Blood Urea Nitrogen 18 Creatinine 0.92 Random Glucose 74 Calcium Level 8.4 Sodium Level 130 Potassium Level 4.3 Chloride Level 98 Carbon Dioxide Level 24.9 Anion Gap 7 Estimat Glomerular Filtration Rate 57 Date/Time Source Procedure Growth Status 01/02/18 16:30 Blood Peripheral Aerobic Blood Culture Pending Received 01/02/18 16:30 Blood Peripheral Anaerobic Blood Culture Pending Received 01/01/18 03:32 Urine Catheterized Urine Urine Culture - Preliminary Gram Negative Jose Resulted Diagnostic Tests EEG--mild slowing with no epileptiform discharges Luiz Chávez MD PhD Jan 02, 2018 19:52
[2018-01-03] VITALS (9 sets, daily range): BP systolic 118–151; BP diastolic 56–87; PULSE 47–76; RESP 16–22; TEMP 96–97.7; O2SAT 95–99
[2018-01-03] MEDS: SODIUM CHLOR 0.9% 1000 ML INJ 1,000 ML IV SCH ×2 (02:44→20:55)
[2018-01-03] MEDS: cefTRIAXone INJ 1,000 MG in SODIUM CHLORIDE 0.9% INJ 100 ML IV SCH ×2 (04:35→16:17)
[2018-01-03] MEDS: LEVOTHYROXINE SODIUM 50 MCG TAB PO SCH (04:46)
[2018-01-03 07:32] LABS: AUTOMATED NEUTROPHIL # 3.7 TH/MM3 (1.8-7.7); BASOPHIL % 0.6 % (0.0-2.0); EOSINOPHIL % 0.8 % (0.0-4.0); HEMATOCRIT 27.3 % (35.0-46.0); LYMPH % 19.5 % (9.0-44.0); LYMPHOCYTE # 1.1 TH/MM3 (1.0-4.8); MEAN CELL VOLUME 88.3 FL (80.0-100.0); MEAN CORPUSCULAR HGB CONC 32.9 % (32.0-36.0); MEAN PLATELET VOLUME 8.1 FL (7.0-11.0); MONO % 15.5 % (0.0-8.0); MONOCYTE # 0.9 TH/MM3 (0-0.9); NEUT % 63.6 % (16.0-70.0); PLATELET COUNT 142 TH/MM3 (150-450); RED BLOOD COUNT 3.09 MIL/MM3 (4.00-5.30); RED CELL DISTRIBUTION WIDTH 15.1 % (11.6-17.2); WHITE BLOOD COUNT 5.7 TH/MM3 (4.0-11.0)
[2018-01-03 08:01] LABS: CALCIUM 8.8 MG/DL (8.5-10.1)
[2018-01-03 08:02] LABS: BICARBONATE 25.5 MEQ/L (21.0-32.0); MAGNESIUM 2.1 MG/DL (1.5-2.5)
--- NOTE | 2018-01-03 08:04 | HHI.PR ---
Subjective Remarks Patient seen and examined today for follow-up on hypothermia, possible seizure, positive blood cultures. Patient has "Am I dying ?". I reassured her that she is doing well. Still waiting further testing to be performed. Objective Vitals Vital Signs Date Time Temp Pulse Resp B/P (MAP) Pulse Ox O2 Delivery O2 Flow Rate FiO2 01/03/18 04:00 96.0 54 20 137/63 (87) 99 01/03/18 00:15 51 01/03/18 00:00 96.0 55 20 151/67 (95) 98 01/02/18 20:00 96.0 56 20 164/70 (101) 98 01/02/18 16:00 58 01/02/18 15:01 98.0 54 37 104/44 (64) 01/02/18 15:00 54 40 01/02/18 14:01 98.9 52 28 113/58 (76) 01/02/18 14:00 52 36 01/02/18 14:00 51 01/02/18 13:01 48 13 118/52 (74) 97 01/02/18 13:00 48 17 96 01/02/18 12:07 46 14 108/47 (67) 98 01/02/18 12:01 50 19 83/66 (72) 98 01/02/18 12:00 44 13 99 01/02/18 12:00 58 01/02/18 11:01 97.0 46 29 122/51 (74) 97 01/02/18 11:00 46 28 97 01/02/18 10:01 50 20 106/47 (66) 01/02/18 10:00 50 20 01/02/18 10:00 51 01/02/18 09:01 50 22 112/59 (76) 100 01/02/18 09:00 50 29 100 01/02/18 08:01 50 22 111/43 (65) 95 01/02/18 08:00 52 17 96 01/02/18 08:00 58 I/O 01/02/18 01/02/18 01/02/18 01/03/18 01/03/18 01/03/18 07:00 15:00 23:00 07:00 15:00 23:00 Intake Total 1185 ml 60 ml Output Total 400 ml 450 ml 225 ml Balance 785 ml -450 ml -165 ml Intake Oral 30 ml 60 ml IV Total 1155 ml Output Urine Total 400 ml 450 ml 225 ml # Bowel Movements 0 1 0 Result Diagram: 01/03/18 0610 01/03/18 0610 Objective Remarks GENERAL: Well-developed, well-nourished, in no acute distress. alert HEENT: Head is normocephalic without any lesions or masses noted. Facial features are symmetric. Eyes: Extraocular muscles are intact. Conjunctivae were clear. NECK: Supple without any masses. Trachea midline no deviation. No JVD, CARDIAC: Regular rhythm, regular rate. S1/S2 are heard. 2/6 ejection murmur, no gallops or rubs. LUNGS: Clear to auscultation bilaterally. No wheeze, rhonchi or rales. No use of accessory muscles on inspiration or expiration. ABDOMEN: Soft, nontender. Nondistended. Bowel sounds heard in all 4 quadrants. No organomegaly or masses. Negative rebound, negative guarding EXTREMITIES: 2+ pitting edema noted bilateral lower extremities., pulses are equal bilaterally. No cyanosis or clubbing. Legs are bandaged and wrapped with Albaro bandages. Records reviewed from wound care nurse NEUROLOGY: Mood and affect appear appropriate. Cranial nerves II through XII grossly intact. Moving all extremities, speech is clear Procedures EEG: Abnormal EEG due to moderate slowing of background due to encephalopathic causes. No epileptic activity Urinary Catheter: Yes Assessment to: Continue Nicolas insert reason: Measure Accurate Output Vascular Central Line Catheter: No A/P Assessment and Plan Sepsis Positive blood cultures today, urinary tract infection CT scan does not indicate any pyelonephritis Chest x-ray does not indicate any acute abnormality Patient continue on Rocephin, vancomycin Continue follow cultures Bacteremia Could be secondary to lower extremity cellulitis, wounds, possible contamination Continue vancomycin Repeat blood cultures are pending Consult infectious disease for recommendations Hypothermia temperature has been 96.0 throughout the night. 96.2 this morning Unknown etiology could be secondary to sepsis, shock, seizure Status post warming blanket, infusion of warm saline Continue warming blanket as needed Mixed alkalosis, improved Possibly due to initial seizure, hypothermia. Patient was hyperventilating and appears to be improved. Seizure Multifactorial with patient's presentation of alkalosis, hypothermia, sepsis. Seizure precautions EEG: Abnormal EEG due to moderate slowing of background due to encephalopathic causes. No epileptic activity Neurology consulted. Recommending MRI and starting Keppra 500 mg twice daily Awaiting MRI Hyponatremia, acute on chronic Patient does use salt tablets in outpatient setting for management Sodium is improving Hypothyroidism TSH 0.23, free T4 1 0.73 Levothyroxine dose decreased to 50 g daily DVT prevention Sequential compression devices Discharge Planning Palliative care is following the patient. Who indicates that patient still want full aggressive measures. They will continue to follow during the hospitalization Case management consulted who spoke with daughter who requesting home health care, [id number] has been completed Reilly Witt Jan 03, 2018 08:04
[2018-01-03 08:05] LABS: CREATININE 0.86 MG/DL (0.50-1.00)
[2018-01-03] MEDS: SODIUM CHLORIDE 0.9% FLUSH 10 ML FLUSH IV FLUSH SCH ×2 (08:48→20:56)
[2018-01-03] MEDS: amLODIPine BESYLATE 5 MG TAB PO SCH (08:48)
[2018-01-03] MEDS: levETIRAcetam 500 MG TAB PO SCH ×2 (08:48→20:56)
[2018-01-03] MEDS: SODIUM CHLORIDE 1 GRAM TAB PO SCH ×2 (08:48→20:56)
[2018-01-03] MEDS: VANCOMYCIN INJ 1,750 MG in SODIUM CHLORID 0.9% 500 ML INJ 500 ML IV SCH (11:44)
[2018-01-03] MEDS ORDERED: LORazepam 2 MG/ML VIAL IV PUSH ONE (13:45)
[2018-01-03] MEDS ORDERED: GADODIAMIDE PF 287 MG/ML 20 ML VIAL (for RAD MRI) IVCONTRAST ONE (14:10)
--- NOTE | 2018-01-03 15:28 | RADRPT ---
EXAM DATE/TIME: 01/03/2018 14:09 [facility] COMPARISON: No previous studies available for comparison. INDICATIONS : Seizures. CONTRAST: 18 cc Omniscan (gadodiamide) IV MEDICAL HISTORY : None. SURGICAL HISTORY : Total knee replacement, right. Right ankle sx ENCOUNTER: Initial ACUITY: 2 day PAIN SCORE: 0/10 LOCATION: cranial TECHNIQUE: Multiplanar, multisequence MRI of the brain was performed both prior to and following the administrat ion of paramagnetic contrast. FINDINGS: CEREBRUM: Mild central and cortical atrophy with moderate periventricular white matter changes. Negative for h emorrhage, infarct or mass effect. No extra-axial fluid collections appreciated. Lacunar infarct ba salganglia left side Mild empty sella. POSTERIOR FOSSA: Atrophy persist into the cerebellum. Minimal white matter changes in the jaziel. DIFFUSION IMAGING: There is no restricted diffusion. EXTRACRANIAL: The visualized portions of the orbits and paranasal sinuses are unremarkable. POST-CONTRAST: No abnormal areas of parenchymal or dural enhancement. No evidence of blood-brain barrier breakdown. CONCLUSION: 1. Marked central and cortical atrophy with periventricular white matter changes 2. No abnormal contrast enhancement 3. Orbits and paranasal sinuses unremarkable. Randy Villa MD FACR on January 03, 2018 at 15:23 Board Certified Radiologist. This report was verified electronically.
--- NOTE | 2018-01-03 19:46 | PD.ID.CON ---
History of Present Illness Service ID Consult Requested By Lane VAZQUEZ Reason for Consult bacteremmia Primary Care Physician Raul Cooper M.D. Diagnoses: History of Present Illness 87 yo female very confused unable to [provide any histoery hx was obtained from the chart She presented on 12/31 with seizure In the emergency room, patient was found to be hypothermic rectally with a temp right around 90-91. S he was immediately placed on a warming blanket and started on antibiotics for suspected UTI. Her UA was markedly abnormal and urine clx eventually grew out E.coli She is continued on abx She is doing better on current tx and remains afebrile, non hypothermic with normal vital o/q Seizure free Her blood clx greww out STAPH SP COAGULASE NEGATIVE X2 MORPHOLOGIES Review of Systems ROS Limitations: Altered Mental Status (confused), Poor Historian Past Family Social History Allergies: Coded Allergies: chlorpromazine (Unverified Allergy, Mild, 10/15/17) Past Medical History Hyponatremia (cause unspecified) Recent new onset seizures Peripheral arterial disease with vascular insufficiency in lower extremities dementia schitzophrenia Past Surgical History appey choley b/l knee replacement Active Ordered Medications Medications where reviewed in EMR Antibiotics Include: vanco CFTX 1 gm bid Family History reviewed non contributory Social History daily wibne no drugs Stop smoking about 20-30 years ago per the daughter, currently lives with the daughter, uses a walker Physical Exam Vital Signs Vital Signs Date Time Temp Pulse Resp B/P (MAP) Pulse Ox O2 Delivery O2 Flow Rate FiO2 01/03/18 18:37 97.1 47 18 122/60 (80) 96 01/03/18 13:04 96.9 59 18 118/56 (76) 95 01/03/18 09:54 54 01/03/18 08:59 96.2 53 16 123/59 (80) 95 01/03/18 04:00 96.0 54 20 137/63 (87) 99 01/03/18 00:15 51 01/03/18 00:00 96.0 55 20 151/67 (95) 98 01/02/18 20:00 96.0 56 20 164/70 (101) 98 Physical Exam CONSTITUTIONAL/GENERAL: This is a morbidly obese patient, in no apparent distress. TUBES/LINES/DRAINS: SKIN: No jaundice, rashes, or lesions. Ecchymoses on upper extremities. No wounds seen anteriorly. Skin temperature appropriate. Not diaphoretic. HEAD: Atraumatic. Normocephalic. EYES: Pupils equal and round and reactive. Extraocular motions intact. No scleral icterus. No injection or drainage. Fundi not examined. ENT: Hearing grossly normal. Nose without bleeding or purulent drainage. Throat without visible erythema, exudates, masses, or lesions. NECK: Trachea midline. Supple, nontender. CARDIOVASCULAR: Regular rate and rhythm without murmurs, gallops, or rubs. No JVD. Peripheral pulses symmetric. RESPIRATORY/CHEST: Symmetric, unlabored respirations. Clear to auscultation. Breath sounds equal bilaterally. No wheezes, rales, or rhonchi. GASTROINTESTINAL: Abdomen soft, non-tender, nondistended. No hepato-splenomegaly , or palpable masses. No guarding. Bowel sounds present. GENITOURINARY: Without palpable bladder distension. catheter in place with clear yellow urine MUSCULOSKELETAL: Extremities without clubbing, cyanosis, or edema. No joint tenderness or effusion noted. No calf tenderness. No mottling or clubbing. LYMPHATICS: No palpable cervical or supraclavicular adenopathy. NEUROLOGICAL: Awake and alert. Very confused Motor and sensory grossly within normal limits. Follows commands. Clear speech. Moves all extremities. PSYCHIATRIC: No obvious anxiety/depression. no apparent hallucinations or other psychotic thought process. Laboratory Laboratory Tests Test 01/03/18 06:10 White Blood Count 5.7 Red Blood Count 3.09 Hemoglobin 9.0 Hematocrit 27.3 Mean Corpuscular Volume 88.3 Mean Corpuscular Hemoglobin 29.0 Mean Corpuscular Hemoglobin Concent 32.9 Red Cell Distribution Width 15.1 Platelet Count 142 Mean Platelet Volume 8.1 Neutrophils (%) (Auto) 63.6 Lymphocytes (%) (Auto) 19.5 Monocytes (%) (Auto) 15.5 Eosinophils (%) (Auto) 0.8 Basophils (%) (Auto) 0.6 Neutrophils # (Auto) 3.7 Lymphocytes # (Auto) 1.1 Monocytes # (Auto) 0.9 Eosinophils # (Auto) 0.0 Basophils # (Auto) 0.0 CBC Comment DIFF FINAL Differential Comment Blood Urea Nitrogen 20 Creatinine 0.86 Random Glucose 75 Calcium Level 8.8 Magnesium Level 2.1 Sodium Level 132 Potassium Level 4.4 Chloride Level 99 Carbon Dioxide Level 25.5 Anion Gap 8 Estimat Glomerular Filtration Rate 62 Date/Time Source Procedure Growth Status 01/02/18 20:55 Blood Peripheral Aerobic Blood Culture - Preliminary NO GROWTH IN 1 DAY Resulted 01/02/18 20:55 Blood Peripheral Anaerobic Blood Culture - Preliminary NO GROWTH IN 1 DAY Resulted 01/01/18 03:32 Urine Catheterized Urine Urine Culture - Final Escherichia Coli Complete Result Diagram: 01/03/18 0610 01/03/18 0610 Imaging Last Impressions Brain MRI 01/03/18 0000 Signed Impressions: Service Date/Time: Wednesday, January 03, 2018 14:09 - CONCLUSION: 1. Marked central and cortical atrophy with periventricular white matter changes 2. No abnormal contrast enhancement 3. Orbits and paranasal sinuses unremarkable. Randy Villa MD FACR Head CT 01/01/18 0000 Signed Impressions: Service Date/Time: January 04:40 - CONCLUSION: 1. Stable senescent changes with moderate periventricular small vessel ischemic white matter demyelination and small left basal ganglia lacunar infarct. 2. No acute intracranial abnormality. Fernie Muñoz MD Chest X-Ray 01/01/18 0000 Signed Impressions: Service Date/Time: January 09:27 - CONCLUSION: Normal examination. Prominent tortuosity of the aorta unchanged Claudio Caballero MD Abdomen/Pelvis CT 01/01/18 0000 Signed Impressions: Service Date/Time: January 11:50 - CONCLUSION: 1. Thickened edematous urinary bladder wall characteristic of cystitis. 2. No findings characteristic of pyelonephritis. 3. Left hepatic biliary air which may be the result of recent intervention. Correlation recommended. 4. Advanced facet arthropathy. 5. Bibasilar scar versus atelectasis. Angelo Feliz MD Assessment and Plan Assessment and Plan UTI E.coli Sepsis on presentation - clinically resolved Coag negative staph bacteremia different morphology cw contaminant cont abx tx change CFTX to 1 gm daily dc vancmycin Lyssa West MD Jan 03, 2018 19:46
[2018-01-04] VITALS (9 sets, daily range): BP systolic 118–147; BP diastolic 60–85; PULSE 48–80; RESP 18–20; TEMP 94.4–98.1; O2SAT 95–99
[2018-01-04] MEDS: LEVOTHYROXINE SODIUM 50 MCG TAB PO SCH (06:23)
--- NOTE | 2018-01-04 07:29 | HHI.PR ---
Subjective Remarks Patient seen and examined today for follow-up on hypothermia, seizure, bacteremia. Patient doing much better. Patient actually looks much improved. Patient denies any new complaints. Vital signs are stable, afebrile. Objective Vitals Vital Signs Date Time Temp Pulse Resp B/P (MAP) Pulse Ox O2 Delivery O2 Flow Rate FiO2 01/04/18 05:10 98.1 67 18 140/66 (90) 97 01/04/18 01:03 98.0 80 18 139/80 (99) 96 01/03/18 20:40 97.7 76 22 142/87 (105) 95 01/03/18 19:45 54 01/03/18 18:37 97.1 47 18 122/60 (80) 96 01/03/18 13:04 96.9 59 18 118/56 (76) 95 01/03/18 09:54 54 01/03/18 08:59 96.2 53 16 123/59 (80) 95 I/O 01/03/18 01/03/18 01/03/18 01/04/18 01/04/18 01/04/18 07:00 15:00 23:00 07:00 15:00 23:00 Intake Total 60 ml 1367 ml 237 ml Output Total 225 ml 300 ml 500 ml Balance -165 ml 1067 ml -263 ml Intake Oral 60 ml 850 ml IV Total 517 ml 237 ml Output Urine Total 225 ml 300 ml 500 ml # Bowel Movements 0 Result Diagram: 01/03/18 0610 01/03/18 0610 Objective Remarks GENERAL: Well-developed, well-nourished, in no acute distress. alert HEENT: Head is normocephalic without any lesions or masses noted. Facial features are symmetric. Eyes: Extraocular muscles are intact. Conjunctivae were clear. NECK: Supple without any masses. Trachea midline no deviation. No JVD, CARDIAC: Regular rhythm, regular rate. S1/S2 are heard. 2/6 ejection murmur, no gallops or rubs. LUNGS: Clear to auscultation bilaterally. No wheeze, rhonchi or rales. No use of accessory muscles on inspiration or expiration. ABDOMEN: Soft, nontender. Nondistended. Bowel sounds heard in all 4 quadrants. No organomegaly or masses. Negative rebound, negative guarding EXTREMITIES: 2+ pitting edema noted bilateral lower extremities., pulses are equal bilaterally. No cyanosis or clubbing. Legs are bandaged and wrapped with Albaro bandages. Records reviewed from wound care nurse NEUROLOGY: Mood and affect appear appropriate. Cranial nerves II through XII grossly intact. Moving all extremities, speech is clear Procedures EEG: Abnormal EEG due to moderate slowing of background due to encephalopathic causes. No epileptic activity Urinary Catheter: Yes Assessment to: Remove Nicolas insert reason: Measure Accurate Output Vascular Central Line Catheter: No A/P Assessment and Plan Sepsis Positive blood cultures, urinary tract infection CT scan does not indicate any pyelonephritis Chest x-ray does not indicate any acute abnormality Patient continue on Rocephin Continue follow cultures Positive blood cultures Consistent with contamination Infectious disease discontinue vancomycin Patient continued on Rocephin Repeat blood cultures negative for 1 day Consulted infectious disease for recommendations. Recommending change in antibiotics and indicating positive blood cultures consistent with contamination Urinary tract infection Urine cultures indicating E. coli Patient is on Rocephin Switch to p.o. medications if okay with infectious disease Hypothermia temperature 98.1 Unknown etiology could be secondary to sepsis, shock, seizure Status post warming blanket, infusion of warm saline Continue warming blanket as needed Mixed alkalosis, improved Possibly due to initial seizure, hypothermia. Patient was hyperventilating and appears to be improved. Seizure Multifactorial with patient's presentation of alkalosis, hypothermia, sepsis. Seizure precautions EEG: Abnormal EEG due to moderate slowing of background due to encephalopathic causes. No epileptic activity Neurology consulted. Recommending MRI and starting Keppra 500 mg twice daily MRI of brain did not indicate any acute abnormality Hyponatremia, acute on chronic Patient does use salt tablets in outpatient setting for management Sodium continues to improve Hypothyroidism TSH 0.23, free T4 1 0.73 Levothyroxine dose decreased to 50 g daily DVT prevention Sequential compression devices Discharge Planning Palliative care is following the patient. Who indicates that patient still want full aggressive measures. They will continue to follow during the hospitalization Medically stable at this time, waiting for infectious disease and neurology clearance for discharge Case management consulted for rehab placement. Physical therapy recommending PT at rehab Reilly Witt Jan 04, 2018 07:28
[2018-01-04] MEDS: SODIUM CHLORIDE 0.9% FLUSH 10 ML FLUSH IV FLUSH SCH ×2 (08:06→21:39)
[2018-01-04] MEDS: cefTRIAXone INJ 1,000 MG in SODIUM CHLORIDE 0.9% INJ 100 ML IV SCH (08:06)
[2018-01-04] MEDS: SODIUM CHLORIDE 1 GRAM TAB PO SCH ×2 (08:06→21:39)
[2018-01-04] MEDS: levETIRAcetam 500 MG TAB PO SCH ×2 (08:06→21:39)
[2018-01-04] MEDS: amLODIPine BESYLATE 5 MG TAB PO SCH (08:06)
[2018-01-04] MEDS ORDERED: PHARMACY ORDERED LAB ONE (09:45)
[2018-01-05] VITALS (8 sets, daily range): BP systolic 116–144; BP diastolic 54–67; PULSE 57–77; RESP 18–22; TEMP 96.1–98; O2SAT 83–99
[2018-01-05] MEDS: LEVOTHYROXINE SODIUM 50 MCG TAB PO SCH (06:14)
--- NOTE | 2018-01-05 07:58 | HHI.DCPOC ---
Discharge Care Plan Diagnosis: (1) Hypothermia (2) Seizure (3) Confusion (4) Hyponatremia (5) Lower extremity edema Goals to Promote Your Health * To prevent worsening of your condition and complications * To maintain your health at the optimal level Directions to Meet Your Goals Take your medications as prescribed Follow your dietary instruction Follow activity as directed Keep your appointments as scheduled Take your immunizations and boosters as scheduled If your symptoms worsen call your PCP, if no PCP go to Urgent Care Center or Emergency Room Smoking is Dangerous to Your Health. Avoid second hand smoke Call the 24-hour hour crisis hotline for domestic abuse at Reilly Witt Jan 05, 2018 07:58
[2018-01-05] MEDS: cefTRIAXone INJ 1,000 MG in SODIUM CHLORIDE 0.9% INJ 100 ML IV SCH (08:17)
[2018-01-05] MEDS: levETIRAcetam 500 MG TAB PO SCH ×2 (08:17→21:12)
[2018-01-05] MEDS: SODIUM CHLORIDE 1 GRAM TAB PO SCH ×2 (08:18→21:12)
[2018-01-05] MEDS: SODIUM CHLORIDE 0.9% FLUSH 10 ML FLUSH IV FLUSH SCH ×2 (08:18→21:11)
[2018-01-05] MEDS: amLODIPine BESYLATE 5 MG TAB PO SCH (08:23)
[2018-01-05] MEDS ORDERED: RESP: ALBUTEROL 2.5 MG/IPRATROPIUM 0.5 MG NEB (PRN) NEB (09:30)
--- NOTE | 2018-01-05 09:53 | RADRPT ---
EXAM DATE/TIME: 01/05/2018 09:23 [facility] COMPARISON: CHEST SINGLE AP, January 01, 2018, 9:27. INDICATIONS : Short of breath. MEDICAL HISTORY : Hypercholesterolemia. Arthritis. Dementia. Hypertension SURGICAL HISTORY : Appendectomy. Cholecystectomy. Bilateral knee repalcements ENCOUNTER: Subsequent ACUITY: 4 - 6 days PAIN SCORE: 0/10 LOCATION: Bilateral chest FINDINGS: Lungs are aerated. There is mild prominence to the cardiac silhouette. There is no infiltrate, pleu ral effusion or pneumothorax. The portion of the bony skeleton visualized is unremarkable. CONCLUSION: Mild compensated cardiomegaly Randy Villa MD FACR on January 05, 2018 at 9:50 Board Certified Radiologist. This report was verified electronically.
[2018-01-05] MEDS: RESP: ALBUTEROL 2.5 MG/IPRATROPIUM 0.5 MG NEB (SCH) NEB ×2 (11:31→19:14)
[2018-01-05] MEDS ORDERED: IOHEXOL 350 MG/ML 10 ML VIAL (for RAD DIAG) IVCONTRAST ONE (15:50)
--- NOTE | 2018-01-05 16:19 | RADRPT ---
EXAM DATE/TIME: 01/05/2018 15:35 [place] COMPARISON: No previous studies available for comparison. INDICATIONS : Hypoxia. Evaluate for pulmonary embolism. IV CONTRAST: 65 cc Omnipaque 350 (iohexol) IV RADIATION DOSE: 21.70 CTDIvol (mGy) ; Patient body habitus MEDICAL HISTORY : Hypertension. Skin cancer. SURGICAL HISTORY : Appendectomy. Cholecystectomy.Orthopedic surgery. ENCOUNTER: Initial ACUITY: 2 days PAIN SCALE: 0/10 LOCATION: chest TECHNIQUE: Volumetric scanning of the chest was performed using a pulmonary embolism protocol MIP images were re constructed. Using automated exposure control and adjustment of the mA and/or kV according to patien t size, radiation dose was kept as low as reasonably achievable to obtain optimal diagnostic quality images. DICOM format image data is available electronically for review and comparison. Follow-up recommendations for detected pulmonary nodules are based at a minimum on nodule size and pa tient risk factors according to Fleischner Society Guidelines. FINDINGS: PULMONARY ARTERIES: No filling defects are seen in the pulmonary arteries through the segmental level. LUNGS: Bibasilar atelectatic changes, left worse on right. Cannot exclude an element of infiltration in the left base. PLEURAE: Small bilateral pleural effusions.. MEDIASTINUM: There is good visualization of the great vessels of the middle mediastinum. No evidence of mediastin al or hilar adenopathy/mass. MUSCULOSKELETAL: Within normal limits for patient age. MISCELLANEOUS: The visualized upper abdominal organs demonstrate no acute abnormality. Nondependent pneumobilia in t he left hepatic lobe may represent prior biliary instrumentation CONCLUSION: 1. No pulmonary embolus. 2. Small bilateral pleural effusions with concomitant atelectatic changes. Cannot exclude an early in filtrate in the left lung base. 3. Pneumobilia. This may be secondary to prior biliary instrumentation, stenting or surgical reconstr uction Kyler Raygoza MD on January 05, 2018 at 16:13 Board Certified Radiologist. This report was verified electronically.
[2018-01-05] MEDS ORDERED: CEFU1TAB18 PO (16:44)
[2018-01-05] MEDS ORDERED: LEVE500 PO (16:44)
[2018-01-05] MEDS ORDERED: Albuterol-Ipratropium Neb NEB (16:44)
[2018-01-05] MEDS ORDERED: FUROSEMIDE 20 MG/2 ML VIAL IV PUSH ONE (16:45)
[2018-01-05] MEDS ORDERED: LEVO.05 PO (16:46)
--- NOTE | 2018-01-05 16:59 | HHI.DS ---
Discharge Summary Admission Date Jan 01, 2018 at 05:04 Discharge Date: Jan 05, 2018 Admitting Diagnosis Seizure, hypothermia, urinary tract infection (1) Seizure ICD Code: R56.9 - Unspecified convulsions Status: Acute (2) Hypothermia ICD Code: T68.XXXA - Hypothermia, initial encounter Status: Acute (3) Hyponatremia ICD Code: E87.1 - Hypo-osmolality and hyponatremia Status: Acute (4) Confusion ICD Code: R41.0 - Disorientation, unspecified (5) Urinary tract infection ICD Code: N39.0 - Urinary tract infection, site not specified Status: Acute Procedures EEG: Abnormal EEG due to moderate slowing of background due to encephalopathic causes. No epileptic activity Brief History - From Admission 87-year-old white female being admitted for sepsis. Patient is a poor historian most likely due to her medical condition with dementia. History largely obtained from daughter and ER records. Patient was in her usual state of health until a few days ago and her daughter noted the patient is exhibiting more confusion and decreased appetite and some intermittent nausea. Last night the patient had ambulated to her chair and then spontaneously was found to start seizing by clenching her face and her upper arms and a relatively rigid/tremoring fashion. Daughter thinks the whole incident lasted less than 5 minutes. Says that the patient was unconscious all the way through coming to the hospital. She says that the patient was found to be incontinent but the daughter cannot tell if this is due to her chronic incontinence or any acute void with the seizure. They think she might have bit her tongue with the seizure.Daughter says that the patient denied having any new pain complaints or worsening pain. In the emergency room, patient was found to be hypothermic rectally with a temp right around 90-91. She was immediately placed on a warming blanket and started on antibiotics for suspected UTI. Head CT was done which showed no acute abnormalities but did report a small left-sided infarct. Patient was found to be hyponatremic around 124. She was also noted to be hyperventilating with an ABG showing pH of 7.59/ CO2 26 /O2 171 /bicarb 25. At the time she got up to the intensive care unit her temperatures had risen all the way up to 102 and down to 95 with heat therapy. CBC/BMP: 01/03/18 0610 01/03/18 0610 Significant Findings Laboratory Tests Test 01/03/18 06:10 01/05/18 10:50 Red Blood Count 3.09 MIL/MM3 (4.00-5.30) Hemoglobin 9.0 GM/DL (11.6-15.3) Hematocrit 27.3 % (35.0-46.0) Platelet Count 142 TH/MM3 (150-450) Monocytes (%) (Auto) 15.5 % (0.0-8.0) Blood Urea Nitrogen 20 MG/DL (7-18) Sodium Level 132 MEQ/L (136-145) Estimat Glomerular Filtration Rate 62 ML/MIN (>89) D-Dimer Quantitative (PE/DVT) 3.34 MG/L FEU (0.00-0.50) Imaging Last Impressions Chest X-Ray 01/05/18 0000 Signed Impressions: Service Date/Time: Friday, January 05, 2018 09:23 - CONCLUSION: Mild compensated cardiomegaly Randy Villa MD FACR CT Angiography 01/05/18 0000 Signed Impressions: Service Date/Time: Friday, January 05, 2018 15:35 - CONCLUSION: 1. No pulmonary embolus. 2. Small bilateral pleural effusions with concomitant atelectatic changes. Cannot exclude an early infiltrate in the left lung base. 3. Pneumobilia. This may be secondary to prior biliary instrumentation, stenting or surgical reconstruction Kyler Raygoza MD Brain MRI 01/03/18 0000 Signed Impressions: Service Date/Time: Wednesday, January 03, 2018 14:09 - CONCLUSION: 1. Marked central and cortical atrophy with periventricular white matter changes 2. No abnormal contrast enhancement 3. Orbits and paranasal sinuses unremarkable. Randy Villa MD FACR Head CT 01/01/18 0000 Signed Impressions: Service Date/Time: January 04:40 - CONCLUSION: 1. Stable senescent changes with moderate periventricular small vessel ischemic white matter demyelination and small left basal ganglia lacunar infarct. 2. No acute intracranial abnormality. Fernie Muñoz MD Abdomen/Pelvis CT 01/01/18 0000 Signed Impressions: Service Date/Time: January 11:50 - CONCLUSION: 1. Thickened edematous urinary bladder wall characteristic of cystitis. 2. No findings characteristic of pyelonephritis. 3. Left hepatic biliary air which may be the result of recent intervention. Correlation recommended. 4. Advanced facet arthropathy. 5. Bibasilar scar versus atelectasis. Angelo Feliz MD PE at Discharge GENERAL: Well-developed, well-nourished, in no acute distress. alert HEENT: Head is normocephalic without any lesions or masses noted. Facial features are symmetric. Eyes: Extraocular muscles are intact. Conjunctivae were clear. NECK: Supple without any masses. Trachea midline no deviation. No JVD, CARDIAC: Regular rhythm, regular rate. S1/S2 are heard. 2/6 ejection murmur, no gallops or rubs. LUNGS: Clear to auscultation bilaterally. No wheeze, rhonchi or rales. No use of accessory muscles on inspiration or expiration. ABDOMEN: Soft, nontender. Nondistended. Bowel sounds heard in all 4 quadrants. No organomegaly or masses. Negative rebound, negative guarding EXTREMITIES: 2+ pitting edema noted bilateral lower extremities., pulses are equal bilaterally. No cyanosis or clubbing. Legs are bandaged and wrapped with Albaro bandages. Records reviewed from wound care nurse NEUROLOGY: Mood and affect appear appropriate. Cranial nerves II through XII grossly intact. Moving all extremities, speech is clear Hospital Course 87-year-old female who dresses history seizures in which she had one on October 15, 2017 and then had another seizure on 01/01/18. Patient was brought to emergency department found to have severe hypo-thermia, mixed alkalosis. Patient was started with warming blanket, warm saline with improvement of her hypothermia and admitted to ICU under hospitalist management. Case was discussed with critical care team however the they indicated that once patient is warm. Repeat blood gas to evaluate for the alkalosis. However patient improved rather nicely. She had initial hyperventilation with improvement of her alkalosis. Patient had workup with neurologist, EEG was done which did show encephalopathy without any lentiform activity. MRI was done without any acute abnormality. Patient was started on Keppra 500 mg twice daily. Case was discussed with neurologist that patient is clinically stable no recurrent seizures. He recommended patient follow-up in outpatient and may be discharged. During the patient's stay she did have blood cultures performed which did come positive with staph epidermidis, staph coag negative. Infectious disease was consulted who indicated that this is consistent with contamination. Repeat cultures do show no growth for 3 days. Patient was found to have urinary tract infection and was started on Rocephin with significant improvement. Patient did have hypoxia and was continued on nasal cannula oxygen. Chest x-ray did not indicate any acute abnormality. D- dimer was done which was elevated. CT scan was performed which did not indicate any pulmonary emboli, did indicate small bilateral pleural effusions with atelectasis. Early infiltrate cannot be excluded. Patient is on antibiotics for ear check infection Rocephin with does cover for community acquired pneumonia, likely believe that this is related to atelectasis due to the patient is very deconditioned, has only been laying in bed. Only getting out of bed with physical therapy. Patient is clinically stable at this time. Presently the patient cannot benefit from anymore inpatient treatments. Will plan discharge to a residential facility for continued management. Case management consulted for discharge. Pt Condition on Discharge: Stable Discharge Disposition: Discharge to SNF Discharge Time: > 30 minutes Discharge Instructions DIET: Follow Instructions for: Heart Healthy Diet Activities you can perform: Regular-No Restrictions Follow up Referrals: Neurology - 2 Weeks with Luiz Chávez MD PhD PCP Follow-up - 1 Week New Medications: Cefuroxime (Ceftin) 250 Mg Tab 250 MG PO BID for Infection for 7 Days, #14 TAB Levetiracetam (Keppra) 500 Mg Tab 500 MG PO Q12HR for Seizure Control for 30 Days, TAB Levothyroxine (Synthroid) 50 Mcg Tab 50 MCG PO DAILY@0600 for hypothyroidism for 30 Days, TAB [Albuterol-Ipratropium Neb] () 1 AMPULE NEBU 1 AMPULE NEB Q2HR NEB PRN for SOB/WHEEZING, #1 BOX Continued Medications: Amlodipine (Amlodipine) 5 Mg Tab 5 MG PO DAILY for Blood Pressure Management, #30 TAB 0 Refills Atenolol (Atenolol) 25 Mg Tab 12.5 MG PO DAILY for Blood Pressure Management, #30 TAB 0 Refills Sodium Chloride (Sodium Chloride) 1 Gram Tab 1 GM PO BID for Electrolyte Replacement, #60 TAB Discontinued Medications: Levothyroxine (Synthroid) 100 Mcg Tab 100 MCG PO DAILY@0600 for Thyroid Supplement, #30 TAB Reilly Witt Jan 05, 2018 16:59
--- NOTE | 2018-01-05 20:23 | HHI.PR ---
Addendum to Inpatient Note Additional Information seen today around 7 pm full note to follow Lyssa West MD Jan 05, 2018 20:23
--- NOTE | 2018-01-05 23:55 | HHI.IDPN ---
Subjective Subjective Remarks delayed entry pt was seen earlier today dw grandghtr at b/s - pt appears to be more SOB Antibiotics CFTX Allergies: Coded Allergies: chlorpromazine (Unverified Allergy, Mild, 10/15/17) Objective . Vital Signs Date Time Temp Pulse Resp B/P (MAP) Pulse Ox O2 Delivery O2 Flow Rate FiO2 01/05/18 20:00 98.0 65 18 116/54 (74) 97 01/05/18 19:14 96 Nasal Cannula 2.00 01/05/18 16:00 97.7 70 18 138/66 (90) 94 01/05/18 12:00 97.7 77 18 144/67 (92) 99 01/05/18 11:35 98 Nasal Cannula 4.00 01/05/18 08:50 83 21 01/05/18 08:00 97.4 57 18 140/67 (91) 95 01/05/18 04:23 01/05/18 00:01 96.1 68 22 137/62 (87) 94 01/04/18 23:57 95 Nasal Cannula 3.00 Imaging Last Impressions Chest X-Ray 01/05/18 0000 Signed Impressions: Service Date/Time: Friday, January 05, 2018 09:23 - CONCLUSION: Mild compensated cardiomegaly Randy Villa MD FACR CT Angiography 01/05/18 0000 Signed Impressions: Service Date/Time: Friday, January 05, 2018 15:35 - CONCLUSION: 1. No pulmonary embolus. 2. Small bilateral pleural effusions with concomitant atelectatic changes. Cannot exclude an early infiltrate in the left lung base. 3. Pneumobilia. This may be secondary to prior biliary instrumentation, stenting or surgical reconstruction Kyler Raygoza MD Brain MRI 01/03/18 0000 Signed Impressions: Service Date/Time: Wednesday, January 03, 2018 14:09 - CONCLUSION: 1. Marked central and cortical atrophy with periventricular white matter changes 2. No abnormal contrast enhancement 3. Orbits and paranasal sinuses unremarkable. Randy Villa MD FACR Head CT 01/01/18 0000 Signed Impressions: Service Date/Time: January 04:40 - CONCLUSION: 1. Stable senescent changes with moderate periventricular small vessel ischemic white matter demyelination and small left basal ganglia lacunar infarct. 2. No acute intracranial abnormality. Efrnie Bozorgmanesh, MD Abdomen/Pelvis CT 01/01/18 0000 Signed Impressions: Service Date/Time: January 11:50 - CONCLUSION: 1. Thickened edematous urinary bladder wall characteristic of cystitis. 2. No findings characteristic of pyelonephritis. 3. Left hepatic biliary air which may be the result of recent intervention. Correlation recommended. 4. Advanced facet arthropathy. 5. Bibasilar scar versus atelectasis. Angelo Feliz MD Physical Exam CONSTITUTIONAL/GENERAL: This is a morbidly obese patient, in no apparent distress. TUBES/LINES/DRAINS: SKIN: No jaundice, rashes, or lesions. Ecchymoses on upper extremities. No wounds seen anteriorly. Skin temperature appropriate. Not diaphoretic. CARDIOVASCULAR: Regular rate and rhythm without murmurs, gallops, or rubs. No JVD. Peripheral pulses symmetric. RESPIRATORY/CHEST: Symmetric, unlabored respirations. Clear to auscultation. Breath sounds equal bilaterally. No wheezes, rales, or rhonchi. GASTROINTESTINAL: Abdomen soft, non-tender, nondistended. No hepato-splenomegaly , or palpable masses. No guarding. Bowel sounds present. GENITOURINARY: Without palpable bladder distension. catheter in place with clear yellow urine MUSCULOSKELETAL: Extremities without clubbing, cyanosis, or edema. No joint tenderness or effusion noted. No calf tenderness. No mottling or clubbing. LYMPHATICS: No palpable cervical or supraclavicular adenopathy. NEUROLOGICAL: Awake and alert. Very confused Motor and sensory grossly within normal limits. Follows commands. Clear speech. Moves all extremities. Assessment & Plan Remarks Assessment and Plan Assessment and Plan UTI E.coli Sepsis on presentation - clinically resolved Coag negative staph bacteremia different morphology cw contaminant cont abx tx cont CFTX to 1 gm daily can be switched to oral abc (cipro) Lyssa West MD Jan 05, 2018 23:55
[2018-01-06] VITALS: BP 121/60; PULSE 68; RESP 17; TEMP 97.9; O2SAT 96
[2018-01-06] MEDS: LEVOTHYROXINE SODIUM 50 MCG TAB PO SCH (06:08)
[2018-01-06] MEDS: RESP: ALBUTEROL 2.5 MG/IPRATROPIUM 0.5 MG NEB (SCH) NEB (07:39)
[2018-01-06 07:40] VITALS: O2SAT 93
[2018-01-06 08:00] VITALS: BP 123/58; PULSE 76; RESP 20; TEMP 98.8; O2SAT 96
[2018-01-06] MEDS: SODIUM CHLORIDE 0.9% FLUSH 10 ML FLUSH IV FLUSH SCH (09:43)
[2018-01-06] MEDS: levETIRAcetam 500 MG TAB PO SCH (09:43)
[2018-01-06] MEDS: SODIUM CHLORIDE 1 GRAM TAB PO SCH (09:43)
[2018-01-06] MEDS: cefTRIAXone INJ 1,000 MG in SODIUM CHLORIDE 0.9% INJ 100 ML IV SCH (09:43)
[2018-01-06] MEDS: amLODIPine BESYLATE 5 MG TAB PO SCH (09:45)
[2018-01-06 12:00] VITALS: BP 141/62; PULSE 65; RESP 20; TEMP 97.4; O2SAT 96
[2018-01-06] MEDS ORDERED: LACTPOW68 PO (12:15)
[2018-01-06] MEDS ORDERED: CIPR-9 PO (12:15)
--- NOTE | 2018-01-06 12:18 | HHI.PR ---
Subjective Remarks This patient is an 87-year-old female who was seen and examined in follow-up for hypothermia, seizure bacteremia. Patient discharge planning continues today. Issues appear resolved. No new complaints. Vital signs are stable and patient is anticipating discharge to rehabilitation to continue strengthening Objective Vitals Vital Signs Date Time Temp Pulse Resp B/P (MAP) Pulse Ox O2 Delivery O2 Flow Rate FiO2 01/06/18 08:00 98.8 76 20 123/58 (79) 96 01/06/18 07:40 93 Nasal Cannula 2.00 01/06/18 00:00 97.9 68 17 121/60 (80) 96 01/05/18 20:00 98.0 65 18 116/54 (74) 97 01/05/18 19:14 96 Nasal Cannula 2.00 01/05/18 16:00 97.7 70 18 138/66 (90) 94 I/O 01/05/18 01/05/18 01/05/18 01/06/18 01/06/18 01/06/18 07:00 15:00 23:00 07:00 15:00 23:00 Output Total 1000 ml Balance -1000 ml Output Urine Total 1000 ml # Voids 2 # Bowel Movements 0 Result Diagram: 01/03/18 0610 01/03/18 0610 Imaging Last Impressions Chest X-Ray 01/05/18 0000 Signed Impressions: Service Date/Time: Friday, January 05, 2018 09:23 - CONCLUSION: Mild compensated cardiomegaly Randy Villa MD FACR CT Angiography 01/05/18 0000 Signed Impressions: Service Date/Time: Friday, January 05, 2018 15:35 - CONCLUSION: 1. No pulmonary embolus. 2. Small bilateral pleural effusions with concomitant atelectatic changes. Cannot exclude an early infiltrate in the left lung base. 3. Pneumobilia. This may be secondary to prior biliary instrumentation, stenting or surgical reconstruction Kyler Raygoza MD Brain MRI 01/03/18 0000 Signed Impressions: Service Date/Time: Wednesday, January 03, 2018 14:09 - CONCLUSION: 1. Marked central and cortical atrophy with periventricular white matter changes 2. No abnormal contrast enhancement 3. Orbits and paranasal sinuses unremarkable. Randy Villa MD FACR Head CT 01/01/18 0000 Signed Impressions: Service Date/Time: January 04:40 - CONCLUSION: 1. Stable senescent changes with moderate periventricular small vessel ischemic white matter demyelination and small left basal ganglia lacunar infarct. 2. No acute intracranial abnormality. Fernie Muñoz MD Abdomen/Pelvis CT 01/01/18 0000 Signed Impressions: Service Date/Time: January 11:50 - CONCLUSION: 1. Thickened edematous urinary bladder wall characteristic of cystitis. 2. No findings characteristic of pyelonephritis. 3. Left hepatic biliary air which may be the result of recent intervention. Correlation recommended. 4. Advanced facet arthropathy. 5. Bibasilar scar versus atelectasis. Angelo Feliz MD Objective Remarks GENERAL: Well-developed, well-nourished, in no acute distress. alert HEENT: Head is normocephalic without any lesions or masses noted. Facial features are symmetric. Eyes: Extraocular muscles are intact. Conjunctivae were clear. NECK: Supple without any masses. Trachea midline no deviation. No JVD, CARDIAC: Regular rhythm, regular rate. I do not appreciate gallops or rubs. There is a systolic murmur LUNGS: Clear to auscultation bilaterally. No wheeze, rhonchi or rales. No use of accessory muscles on inspiration or expiration. ABDOMEN: Soft, nontender. Nondistended. Bowel sounds heard in all 4 quadrants. No organomegaly or masses. Negative rebound, negative guarding EXTREMITIES: 2+ pitting edema noted bilateral lower extremities. Pulses are equal bilaterally. No cyanosis or clubbing. Legs are bandaged and wrapped with Albaro bandages. NEUROLOGY: Mood and affect appear appropriate. Cranial nerves II through XII grossly intact. Moving all extremities, speech is clear Procedures EEG: Abnormal EEG due to moderate slowing of background due to encephalopathic causes. No epileptic activity A/P Assessment and Plan Discharge planning continues. Medication list reviewed. Chart reviewed and discussed with patient and nursing team. Ena Alba MD Jan 06, 2018 12:18
== END 2018-01-06 13:42 | DRG 871 ==
LOC: PHED 01:40 → PHEDA 05:04 → PHICU 08:33 → PH3B 01-02 17:39
PROVIDERS: ADMIT Hospitalist; ATTEND Hospitalist
DX: A41.51 Sepsis due to Escherichia coli [E. coli] (principal); G93.40 Encephalopathy, unspecified; J18.9 Pneumonia, unspecified organism; E87.3 Alkalosis; N39.0 Urinary tract infection, site not specified; E87.1 Hypo-osmolality and hyponatremia; Z68.41 Body mass index [BMI] 40.0-44.9, adult; L03.119 Cellulitis of unspecified part of limb; J98.11 Atelectasis; R56.9 Unspecified convulsions; I10 Essential (primary) hypertension; R68.0 Hypothermia, not associated with low environmental temperature; R32 Unspecified urinary incontinence; I73.9 Peripheral vascular disease, unspecified; R63.0 Anorexia; E03.9 Hypothyroidism, unspecified; E78.5 Hyperlipidemia, unspecified; R60.0 Localized edema; E66.01 Morbid (severe) obesity due to excess calories; R06.4 Hyperventilation; R09.02 Hypoxemia; H91.92 Unspecified hearing loss, left ear; F32.9 Major depressive disorder, single episode, unspecified; F20.9 Schizophrenia, unspecified; F03.90 Unspecified dementia, unspecified severity, without behavioral disturbance, psychotic disturbance, mood disturbance, and anxiety; M19.90 Unspecified osteoarthritis, unspecified site; F41.9 Anxiety disorder, unspecified; Z81.8 Family history of other mental and behavioral disorders; Z87.891 Personal history of nicotine dependence; Z96.653 Presence of artificial knee joint, bilateral
CPT/HCPCS: 36600; 70450; 70553; 71045; 71275; 74177; 80048; 80053; 80307; 81001; 82805; 83605; 83735; 84439; 84443; 84484; 85025; 85379; 86403; 87040; 87077; 87086; 87186; 87205; 87641; 93005; 94640; 94664; 94667; 94668; 95819; 96361; 96374; A9579; J0696; J1940; J2060; J3370; J7030; J7040; Q9967

== ENCOUNTER 2018-07-23 11:33 | Inpatient (IN) ==
[2018-07-23] MEDS ORDERED: predniSONE 20 MG Tablet PO ONE (11:52)
--- NOTE | 2018-07-23 11:58 | ED ---
HPI General Chief Complaint: Chest Pain Stated Complaint: chest pain/sob Time Seen by Provider: 07/23/18 11:41 History of Present Illness HPI narrative: The patient was seen and examined in the presence of the nurse. This patient is brought in by her daughter because she developed chest pain. Patient has significant dementia and cannot provide any useful history or review of systems. History is provided by the daughter. She developed chest pain. she smoked for many years but quit 20 years ago. She has wheezing and congestion and some dyspnea as well. Symptom severity is moderate. No alleviating factors. Chest pain has improved. No exacerbating factors. Related Data Home Medications Medication Instructions Recorded Confirmed amlodipine 5 mg PO DAILY 07/23/18 07/23/18 atenolol 25 mg PO DAILY 07/23/18 07/23/18 furosemide 20 mg PO DAILY 07/23/18 07/23/18 levetiracetam 500 mg PO Q12H 07/23/18 07/23/18 potassium chloride 10 meq PO DAILY 07/23/18 07/23/18 sodium chloride 1 tab PO BID 07/23/18 07/23/18 Allergies Allergy/AdvReac Type Severity Reaction Status Date / Time chlorpromazine Allergy Mild Unverified 10/15/17 18:42 Review of Systems ROS: all other systems reviewed are negative PMFSH Medical History Medical History Cholecystectomy planned (Acute) Fluid retention in legs (Acute) History of chronic hypertension (Acute) History of seizure (Acute) Surgical History Surgical History History of appendectomy (Acute) History of bilateral knee replacement (Acute) Social History Social History Substance History: No History of Abuse Smoking Status: Former smoker How Often Do You Have a Drink Containing Alcohol: 2 to 3 times a week Recent Travel in [facility] within the Last 8 Weeks: No Recent Out of Country Travel within the Last 8 Weeks: No Exam Narrative Exam Narrative: GENERAL: Well-nourished, well-developed patient in no apparent distress. SKIN: Focused skin assessment reveals no rash and nodules. Skin is Warm and dry. HEAD: Atraumatic. Normocephalic. EYES: Pupils equal and round. No scleral icterus. No injection or drainage. ENT: No nasal bleeding or discharge. Mucous membranes pink and moist. NECK: Trachea midline. No JVD. CARDIOVASCULAR: Regular rate and rhythm. No murmur appreciated. RESPIRATORY: No accessory muscle use. Has diffuse rhonchi and expiratory wheezing. Breath sounds equal bilaterally. GASTROINTESTINAL: Abdomen soft, non-tender, nondistended. Hepatic and splenic margins not palpable. MUSCULOSKELETAL: No obvious deformities. No clubbing. No cyanosis. Symmetric bilateral pitting edema with thickened hyper nodular skin. Small wound in the medial aspect of the right lower leg which is covered with a pressure dressing. This was placed by the bracelet and brooch maker office this morning. NEUROLOGICAL: Awake and alert. No obvious cranial nerve deficits. Motor grossly within normal limits. Normal speech. PSYCHIATRIC: Appropriate mood and affect; insight and judgment poor . Course Initial Documented Vital Signs Pulse Oximetry 94 L 07/23/18 11:51 Last Documented Vital Signs Temperature 97.4 F L 07/23/18 12:06 Pulse Rate 87 07/23/18 12:06 Respiratory Rate 18 07/23/18 12:06 Pulse Oximetry 87 L 07/23/18 12:06 Medical Decision Making MDM Narrative Medical decision making narrative: IV placed and labs sent. Heart EKG shows A. fib but no ST elevation. I gave her multiple duo nebs and a dose of prednisone. Patient is clinically improved after the above treatments. Her chest x-ray shows possible infiltrates. She has 2 reasons for hospitalization. She was hypoxic on room air on arrival and has acute exacerbation of chronic COPD. #2 she has suspicious chest pain that will be evaluated in the hospital. I reviewed with the hospitalist. Medical Screen Exam Complete: Yes Emergency Medical Condition: Yes Differential Diagnosis Differential Diagnosis: Differential diagnosis includes MN, angina, pericarditis , pleurisy, GERD, anxiety. Medical Records Medical records reviewed: Yes I reviewed the patient's medical records. Lab Data Lab results reviewed: Yes I reviewed the patient's lab results. Lab results narrative: Patient has anemia and hyponatremia. Her hyponatremia is chronic and likely at least partially due to diuretic use Result diagrams: 07/23/18 12:23 07/23/18 12:23 Lab Results 07/23/18 07/23/18 Range/Units 12:23 12:23 CBC w Diff Auto diff final WBC 8.5 (4.0-11.0) th/mm3 RBC 3.69 L (4.00-5.30) mil/mm3 Hgb 9.7 L (11.6-15.3) gm/dL Hct 31.1 L (35.0-46.0) % MCV 84.4 (80.0-100.0) fL MCH 26.3 L (27.0-34.0) pg MCHC 31.2 L (32.0-36.0) % RDW 15.4 (11.6-17.2) % Plt Count 282 (150-450) th/mm3 MPV 6.1 L (7.0-11.0) fL Neut % (Auto) 82.1 H (16.0-70.0) % Lymph % (Auto) 11.2 (9.0-44.0) % [place] % (Auto) 5.9 (0.0-8.0) % Eos % (Auto) 0.4 (0.0-4.0) % Baso % (Auto) 0.4 (0.0-2.0) % Neut # (Auto) 7.1 (1.8-7.7) th/mm3 Lymph # (Auto) 0.9 L (1.0-4.8) th/mm3 [place] # (Auto) 0.5 (0.0-0.9) th/mm3 Eos # (Auto) 0.0 (0.0-0.4) th/mm3 Baso # (Auto) 0.0 (0.0-0.2) th/mm3 WBC Differential . Differential Comment . Sodium 125 L (136-145) meq/L Potassium 4.2 (3.5-5.1) meq/L Chloride 88 L (98-107) meq/L Carbon Dioxide 29.8 (21.0-32.0) meq/L Anion Gap 7 (5-15) meq/L BUN 13 (7-18) mg/dL Creatinine 0.77 (0.50-1.00) mg/dL Estimated GFR 71 L (>89) mL/min Random Glucose 124 H (74-106) mg/dL Calcium 8.3 L (8.5-10.1) mg/dL Total Bilirubin 0.3 (0.2-1.0) mg/dL AST 20 (15-37) U/L ALT 17 (10-53) U/L Alkaline Phosphatase 51 (45-117) U/L Total Creatine Kinase 39 (26-192) U/L Troponin I Less than 0.02 L (0.02-0.05) ng/mL Total Protein 6.3 L (6.4-8.2) g/dL Albumin 2.8 L (3.4-5.0) g/dL Imaging Data Attestation: I personally reviewed and interpreted this imaging study as follows : My impression: Patient has some patchiness and haziness which could represent infiltrate Radiologist's impression: Chest X-Ray 07/23/18 11:51 CONCLUSION: Bibasilar patchiness consistent with possible developing infiltrates as well as minimal patchiness in the right upper lung field. ECG Data EKG Prior to Arrival: No Attestation: I personally reviewed and interpreted this ECG as follows: Prior ECG tracings: not available for review Interpretation: Patient is in atrial fibrillation but the rate is normal. There are no ST elevations. [place] of the EKG is normal. Discharge Plan Discharge Disposition Patient Disposition: 30 Still Patient Discharge Details Diagnosis: Chest pain in adult, COPD with acute exacerbation Physicians Team ED Provider: Reilly Hernandes Primary Care Provider: Raul Cooper Rxs /Orders / Referrals /Forms Prescriptions: No Action potassium chloride 10 mEq Capsule, Extended Release 10 meq PO DAILY RF: 0 levetiracetam 500 mg Tablet 500 mg PO Q12H RF: 0 sodium chloride 1 gram Tablet 1 tab PO BID RF: 0 atenolol 25 mg Tablet 25 mg PO DAILY RF: 0 amlodipine 5 mg Tablet 5 mg PO DAILY RF: 0 furosemide 20 mg Tablet 20 mg PO DAILY RF: 0 Discharge Instructions Patient Printed Instructions: Chest Pain (ED) Status ED Status: With Doctor
[2018-07-23 12:28] LABS: Baso % (Auto) 0.4 % (0.0-2.0); Eos % (Auto) 0.4 % (0.0-4.0); Hematocrit 31.1 % (35.0-46.0); Hemoglobin 9.7 gm/dL (11.6-15.3); Lymph # (Auto) 0.9 th/mm3 (1.0-4.8); Lymph % (Auto) 11.2 % (9.0-44.0); Mean Corpuscular HGB Conc 31.2 % (32.0-36.0); Mean Corpuscular Hemoglobin 26.3 pg (27.0-34.0); Mean Corpuscular Volume 84.4 fL (80.0-100.0); Mean Platelet Volume 6.1 fL (7.0-11.0); Mono # (Auto) 0.5 th/mm3 (0.0-0.9); Mono % (Auto) 5.9 % (0.0-8.0); Neut # (Auto) 7.1 th/mm3 (1.8-7.7); Neut % (Auto) 82.1 % (16.0-70.0); Platelet Count 282 th/mm3 (150-450); Red Blood Count 3.69 mil/mm3 (4.00-5.30); Red Cell Distribution Width 15.4 % (11.6-17.2); White Blood Count 8.5 th/mm3 (4.0-11.0)
[2018-07-23 12:38] LABS: Chloride 88 meq/L (98-107); Potassium 4.2 meq/L (3.5-5.1); Sodium 125 meq/L (136-145)
[2018-07-23 12:41] LABS: Calcium 8.3 mg/dL (8.5-10.1)
[2018-07-23 12:42] LABS: Albumin 2.8 g/dL (3.4-5.0); Anion Gap 7 meq/L (5-15); Blood Urea Nitrogen 13 mg/dL (7-18); Carbon Dioxide 29.8 meq/L (21.0-32.0); Glucose,Random 124 mg/dL (74-106)
--- NOTE | 2018-07-23 12:42 | XR ---
EXAM DATE: 07/23/2018 12:35 PM EDT AGE/SEX: 87 years / Female INDICATIONS: Short of breath. CLINICAL DATA: This is the patient's initial encounter. Patient reports that signs and symptoms have been present for 2 days and indicates a pain score of 0/10. MEDICAL/SURGICAL HISTORY: Hypertension. Appendectomy. Cholecystectomy. COMPARISON: [facility], CHEST SINGLE AP, 01/05/2018. . FINDINGS: Bibasilar patchiness is noted consistent with possible developing infiltrates. Minimal patchiness is also noted within the right upper lung field. The heart is stable. Degenerative changes are noted thr oughout the thoracic spine. CONCLUSION: Bibasilar patchiness consistent with possible developing infiltrates as well as minimal patchiness in the right upper lung field. Electronically signed by: Alvin Christina MD 07/23/2018 12:41 PM EDT
[2018-07-23 12:45] LABS: Alanine Aminotransferase 17 U/L (10-53); Aspartate Aminotransferase 20 U/L (15-37); Glomerular Filtration Rate 71 mL/min (>89)
[2018-07-23 12:47] LABS: Total Protein 6.3 g/dL (6.4-8.2)
[2018-07-23 12:48] LABS: Alkaline Phosphatase 51 U/L (45-117)
[2018-07-23 13:03] LABS: Creatine Kinase 39 U/L (26-192)
[2018-07-23] MEDS ORDERED: Acetaminophen 325 MG Tablet PO PRN (13:46)
[2018-07-23] MEDS ORDERED: Bisacodyl 10 MG Supp RECTAL PRN (13:46)
--- NOTE | 2018-07-23 14:47 | P.HP ---
History of Present Illness Primary Care Physician: Raul Cooper Chief Complaint: Chest pain and shortness of breath History of Present Illness: This is an 87-year-old female patient with a known medical history of hypertension, COPD, who presented to the ED with complaints of chest pain and shortness of breath. Patient is seen at bedside, is a very poor historian and unable to provide much addition to the medical history secondary to her dementia. Supposedly patient was getting out of the car today after going to her podiatry appointment and suddenly developed shortness of breath and right sided chest pain. Patient states "she had a weird feeling in her chest, came for a few minutes and then went away". She is unable to contribute to anymore of the characteristics of the pain. Patient is on supplemental O2 on assessment , does not use home O2. Daughter states that patient has had the common cold during the last several days, denies any recent abx use. Lives with her daughter who assists closely with her ADLs and IADLs. Patient uses a walker at home. Follows with PCP. 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 Daughter states she does not have a history of CHF or has never had an ECHO. There are no reports of fever, chills, headache, abdominal pain, nausea, vomiting, diarrhea or dysuria. - Diagnosis (1) Chest pain in adult (2) COPD with acute exacerbation Review of Systems All other systems reviewed negative except as stated in HPI PMFSH - History History Provided By: Family Member - Medical History Medical History: Medical History (Last Reviewed 07/23/18 @ 15:06 by Brittney Rodriguez) Cholecystectomy planned Fluid retention in legs History of chronic hypertension History of seizure - Surgical History Surgical History: Surgical History (Last Reviewed 07/23/18 @ 15:06 by Brittney Rodriguez) History of appendectomy History of bilateral knee replacement - Family History Family History: Family History (Last Reviewed 07/23/18 @ 15:06 by Brittney Rodriguez) Other No pertinent family history - Tobacco History Smoking Status: Former smoker - Alcohol History How Often Do You Have a Drink Containing Alcohol: 2 to 3 times a week - Substance Use History Substance History: No History of Abuse - Travel History Recent Travel in the [place] Within the Last 8 Weeks: No Recent Travel Out of the Country Within the Last 8 Weeks: No - Immunization History Tetanus Immunization: Unsure Hx Influenza Vaccine This Season: No Medications and Allergies Active Medications: Active Medications Acetaminophen (Tylenol) 650 mg PO Q4H PRN PRN Reason: Temp > 100.4 Al Hydroxide/Mg Hydroxide (Milk Of Magnesia Liq) 30 ml PO Q12H PRN PRN Reason: Mild Constipation Bisacodyl (Dulcolax Supp) 10 mg RECTAL DAILY PRN PRN Reason: SEVERE CONSITIPATION Lactulose (Lactulose Liq) 30 ml PO DAILY PRN PRN Reason: SEVERE CONSITIPATION Ondansetron HCl (Zofran Inj) 4 mg IV.PUSH Q6H PRN PRN Reason: NAUSEA OR VOMITING Sennosides (Senokot) 17.2 mg PO Q12H PRN PRN Reason: Moderate Constipation Sodium Chloride (Ns Flush) 2 ml IV.FLUSH UNSCH PRN PRN Reason: FLUSH AFTER USING IV ACCESS Allergies Allergy/AdvReac Type Severity Reaction Status Date / Time chlorpromazine Allergy Mild Unverified 10/15/17 18:42 Home Medications Medication Instructions Recorded Confirmed Type amlodipine 5 mg PO DAILY 07/23/18 07/23/18 History atenolol 25 mg PO DAILY 07/23/18 07/23/18 History furosemide 20 mg PO DAILY 07/23/18 07/23/18 History levetiracetam 500 mg PO Q12H 07/23/18 07/23/18 History potassium chloride 10 meq PO DAILY 07/23/18 07/23/18 History sodium chloride 1 tab PO BID 07/23/18 07/23/18 History Exam Vital signs: Vital Signs 07/23/18 11:51 07/23/18 12:00 07/23/18 12:06 Temperature 97.4 F L Pulse Rate 80 87 Respiratory Rate 21 18 Blood Pressure Pulse Oximetry 94 L 87 L 07/23/18 13:46 Temperature Pulse Rate 70 Respiratory Rate 16 Blood Pressure 166/79 H Pulse Oximetry 94 L Intake & Output 07/22/18 07/23/18 07/23/18 18:59 06:59 18:59 Weight 102 kg Narrative: GENERAL: Well-developed, well-nourished elderly female patient in NAD. On supplemental O2. SKIN: Warm and dry. No rash. HEAD: Normocephalic. Atraumatic. EYES: Pupils equal and round. No scleral icterus. No injection or drainage. ENT: No nasal bleeding or discharge. Mucous membranes pink and moist. NECK: Supple. Trachea midline. CARDIOVASCULAR: Irregularly irregular rhythm. RESPIRATORY: No accessory muscle use. Scattered wheezing throughout. Breath sounds equal bilaterally. GASTROINTESTINAL: Abdomen soft, non-tender, nondistended. Normoactive bowel sounds x4. MUSCULOSKELETAL: No obvious deformities. Extremities without clubbing, cyanosis. Bilateral lower extremity trace edema and right lower extremity skin tear with gauze. NEUROLOGICAL: Awake and alert, pleasantly confused. No obvious cranial nerve deficits. Motor grossly within normal limits. 5/5 muscle strength in bilateral upper and lower extremities. Results - Labs CBC & Chem 7: 07/23/18 12:23 07/23/18 12:23 Labs: Laboratory Results - last 24 hr 07/23/18 07/23/18 12:23 12:23 CBC w Diff Auto diff final WBC 8.5 RBC 3.69 L Hgb 9.7 L Hct 31.1 L MCV 84.4 MCH 26.3 L MCHC 31.2 L RDW 15.4 Plt Count 282 MPV 6.1 L Neut % (Auto) 82.1 H Lymph % (Auto) 11.2 [place] % (Auto) 5.9 Eos % (Auto) 0.4 Baso % (Auto) 0.4 Neut # (Auto) 7.1 Lymph # (Auto) 0.9 L [place] # (Auto) 0.5 Eos # (Auto) 0.0 Baso # (Auto) 0.0 WBC Differential . Differential Comment . Sodium 125 L Potassium 4.2 Chloride 88 L Carbon Dioxide 29.8 Anion Gap 7 BUN 13 Creatinine 0.77 Estimated GFR 71 L Random Glucose 124 H Calcium 8.3 L Total Bilirubin 0.3 AST 20 ALT 17 Alkaline Phosphatase 51 Total Creatine Kinase 39 Troponin I Less than 0.02 L Total Protein 6.3 L Albumin 2.8 L - Imaging Impressions Chest X-Ray 07/23/18 11:51 CONCLUSION: Bibasilar patchiness consistent with possible developing infiltrates as well as minimal patchiness in the right upper lung field. Caprini VTE Risk Assessment Caprini VTE Risk Assessment: Moderate/High Risk (score >= 2) Caprini Risk Assessment Model: Point Value = 1 Point Value = 2 Point Value = 3 Point Value = 5 Age 41-60 Minor surgery BMI > 25 kg/m2 Swollen legs Varicose veins or History of unexplained or recurrent spontaneous Oral contraceptives or hormone replacement Sepsis (< 1 month) Serious lung disease, including pneumonia (< 1 month) Abnormal pulmonary function Acute myocardial infarction Congestive heart failure (< 1 month) History of inflammatory bowel disease Medical patient at bed rest Age 61-74 Arthroscopic surgery Major open surgery (> 45 min) Laparoscopic surgery (> 45 min) Malignancy Confined to bed (> 72 hours) Immobilizing plaster cast Central venous access Age >= 75 History of VTE Family history of VTE Factor V Leiden Prothrombin [id number] Lupus anticoagulant Anticardiolipin antibodies Elevated serum homocysteine Heparin-induced thrombocytopenia Other congenital or acquired thrombophilia Stroke (< 1 month) Elective arthroplasty Hip, pelvis, or leg fracture Acute spinal cord injury (< 1 month) Prophylaxis Regimen: Total Risk Factor Score Risk Level Prophylaxis Regimen 0-1 Low Early ambulation 2 Moderate Order ONE of the following: *Sequential Compression Device (SCD) *Heparin 5000 units SQ BID 3-4 Higher Order ONE of the following medications: *Heparin 5000 units SQ TID *Enoxaparin/Lovenox 40 mg SQ daily (WT < 150 kg, CrCl > 30 mL/min) *Enoxaparin/Lovenox 30 mg SQ daily (WT < 150 kg, CrCl > 10-29 mL/min) *Enoxaparin/Lovenox 30 mg SQ BID (WT < 150 kg, CrCl > 30 mL/min) AND/OR *Sequential Compression Device (SCD) 5 or more Highest Order ONE of the following medications: *Heparin 5000 units SQ TID (Preferred with Epidurals) *Enoxaparin/Lovenox 40 mg SQ daily (WT < 150 kg, CrCl > 30 mL/min) *Enoxaparin/Lovenox 30 mg SQ daily (WT < 150 kg, CrCl > 10-29 mL/min) *Enoxaparin/Lovenox 30 mg SQ BID (WT < 150 kg, CrCl > 30 mL/min) AND *Sequential Compression Device (SCD) Assessment and Plan - Assessment (1) Chest pain in adult Code(s): R07.9 - Chest pain, unspecified Status: Acute (2) COPD with acute exacerbation Code(s): J44.1 - Chronic obstructive pulmonary disease with (acute) exacerbation Status: Acute - Plan This is an 87-year-old female patient with: COPD with exacerbation with hypoxia and need for supplemental O2 -CBC reviewed and essentially unremarkable. -CXR reviewed personally which does mention infiltrates on report although appears to be chronic findings. Will continue to monitor. -Patients O2 sat on RA, 87%. Continue supplemental O2 to keep sats >92%. -Add duonebs scheduled and as needed for wheezing/sob. -Methylprednisone IV added. -PT evaluation ordered and pending. -Continue to monitor and supportive care. Chest pain suspect secondary to COPD exacerbation, atypical History of atrial fibrillation -Serial EKGs and serial troponins have been ordered for ruling out ACS purposes. Initial troponin flat, will continue to monitor trend. EKG reviewed showing atrial fibrillation with controlled heart rate. No ST changes. -Chest pain was transient and patient unable to characterize. At time of assessment has resolved. -Continue to monitor cardiac rhythm. Acute on chronic hyponatremia -Na 125 on presentation. Other electrolytes normal. -Patient takes sodium chloride tablets at home. Will continue. -Monitor BMP. DVT Prophylaxis: SCDs. Heparin.
[2018-07-23 16:20] LABS: ABG Base Excess 5.3 mmol/L (-2-2); ABG PCO2 50 mmHg (38-42); ABG PO2 57 mmHg (61-120)
[2018-07-23] MEDS: amLODIPine 5 MG Tablet PO SCH (17:17)
[2018-07-23] MEDS: MethylPREDNISolone Sod Succinate Inj 40 MG/ML Vial IV.PUSH SCH ×2 (17:20→21:35)
[2018-07-23] MEDS: Furosemide 20 MG Tablet PO SCH (17:20)
[2018-07-23] MEDS: levETIRAcetam 500 MG Tablet PO SCH ×2 (17:20→21:53)
[2018-07-23 19:14] LABS: Creatine Kinase 36 U/L (26-192)
[2018-07-23] MEDS: Heparin - SQ 10,000 UNITS/ML Vial SQ SCH (21:36)
[2018-07-23] MEDS: Sodium Chloride 1 GM Tablet PO SCH (21:55)
[2018-07-23 23:10] LABS: ABG Base Excess 4.9 mmol/L (-2-2); ABG PCO2 65 mmHg (38-42); ABG PO2 80 mmHg (61-120)
[2018-07-24 01:09] LABS: Creatine Kinase 46 U/L (26-192)
[2018-07-24] MEDS: MethylPREDNISolone Sod Succinate Inj 40 MG/ML Vial IV.PUSH SCH ×4 (04:55→22:14)
[2018-07-24] MEDS: Atenolol 25 MG Tablet PO SCH (09:03)
[2018-07-24] MEDS: Heparin - SQ 10,000 UNITS/ML Vial SQ SCH ×2 (09:03→20:27)
[2018-07-24] MEDS: Furosemide 20 MG Tablet PO SCH (09:03)
[2018-07-24] MEDS: levETIRAcetam 500 MG Tablet PO SCH ×2 (09:03→20:28)
[2018-07-24] MEDS: amLODIPine 5 MG Tablet PO SCH (09:03)
[2018-07-24] MEDS: Sodium Chloride 1 GM Tablet PO SCH ×2 (09:03→20:28)
--- NOTE | 2018-07-24 13:16 | P.PNIM ---
Subjective Interval history: Follow up COPD exacerbation. Patient seen and examined, sleeping in bed. Awakes to voice. Alert and pleasantly confused with underlying dementia. Denies any acute complaints, does still complain of shortness of breath. Has been using BIPAP at night. Continued abx and steroids. Afebrile. VSS. Awaiting lab work results today. Physical Exam Vital signs: Vital Signs 07/23/18 13:46 07/23/18 14:30 07/23/18 15:00 Temperature 95.4 F L Pulse Rate 70 133 H Respiratory Rate 16 22 28 H Blood Pressure 166/79 H 138/88 Pulse Oximetry 94 L 91 L 74 L 07/23/18 15:14 07/23/18 16:00 07/23/18 16:38 Temperature 98.5 F Pulse Rate 83 87 76 Respiratory Rate 25 H 25 H Blood Pressure 107/62 Pulse Oximetry 94 L 07/23/18 17:00 07/23/18 18:00 07/23/18 19:00 Temperature Pulse Rate 84 78 84 Respiratory Rate 29 H 15 20 Blood Pressure 105/84 119/61 145/85 H Pulse Oximetry 93 L 98 98 07/23/18 19:27 07/23/18 20:00 07/23/18 21:00 Temperature 98.9 F Pulse Rate 94 H 82 72 Respiratory Rate 24 20 14 Blood Pressure 148/79 H Pulse Oximetry 92 L 96 96 07/23/18 21:06 07/23/18 22:00 07/23/18 22:44 Temperature Pulse Rate 90 76 Respiratory Rate 29 H 20 Blood Pressure 151/68 H Pulse Oximetry 97 95 95 07/23/18 23:14 07/23/18 23:30 07/24/18 00:00 Temperature 97.4 F L 97.4 F L Pulse Rate 70 70 Respiratory Rate 27 H 14 Blood Pressure 114/62 102/55 L Pulse Oximetry 95 94 L 91 L 07/24/18 01:00 07/24/18 02:00 07/24/18 02:25 Temperature Pulse Rate 70 60 Respiratory Rate 15 15 Blood Pressure 118/53 L 113/50 L Pulse Oximetry 91 L 91 L 93 L 07/24/18 03:00 07/24/18 03:30 07/24/18 04:00 Temperature 97 F L Pulse Rate 78 74 Respiratory Rate 23 12 Blood Pressure 154/87 H 109/62 Pulse Oximetry 91 L 88 L 90 L 07/24/18 04:50 07/24/18 05:00 07/24/18 06:00 Temperature Pulse Rate 84 68 Respiratory Rate 19 15 Blood Pressure 135/82 106/60 Pulse Oximetry 97 95 93 L 07/24/18 07:00 07/24/18 07:35 07/24/18 08:00 Temperature 97.9 F Pulse Rate 68 92 H 96 H Respiratory Rate 13 15 30 H Blood Pressure 105/57 L 131/70 Pulse Oximetry 93 L 96 95 07/24/18 08:19 07/24/18 09:00 07/24/18 10:00 Temperature Pulse Rate 88 96 H Respiratory Rate 23 21 Blood Pressure 111/65 Pulse Oximetry 93 L 93 L 94 L 07/24/18 10:02 Temperature Pulse Rate 92 H Respiratory Rate 23 Blood Pressure 119/71 Pulse Oximetry 96 Intake & Output 07/23/18 07/24/18 07/24/18 18:59 06:59 18:59 Intake Total 100 / 100 Output Total 1000 / 1000 Balance -900 / -900 Weight 102 kg 100.2 kg Intake: Oral 100 / 100 Output: Urine 1000 / 1000 Other: Date of Last Bowel Movement 07/22/18 07/22/18 Narrative: GENERAL: Well-developed, well-nourished elderly female patient in [facility]. On supplemental O2. SKIN: Warm and dry. No rash. HEAD: Normocephalic. Atraumatic. EYES: Pupils equal and round. No scleral icterus. No injection or drainage. ENT: No nasal bleeding or discharge. Mucous membranes pink and moist. NECK: Supple. Trachea midline. CARDIOVASCULAR: Irregularly irregular rhythm. RESPIRATORY: No accessory muscle use. Scattered coarse breath sounds throughout. Breath sounds equal bilaterally. GASTROINTESTINAL: Abdomen soft, non-tender, nondistended. Normoactive bowel sounds x4. MUSCULOSKELETAL: No obvious deformities. Extremities without clubbing, cyanosis. Bilateral lower extremity trace edema and right lower extremity skin tear, draining serous fluid. NEUROLOGICAL: Awake and alert, pleasantly confused. No obvious cranial nerve deficits. Motor grossly within normal limits. 4/5 muscle strength in bilateral upper and lower extremities. Results - Labs CBC & Chem 7: 07/24/18 14:05 07/23/18 12:23 Laboratory Results - last 24 hr 07/23/18 07/23/18 07/23/18 16:15 18:35 23:02 Puncture Site Right radial Right radial Patient Temperature 98.6 98.6 O2 Saturation 87 L* 93 ABG pH 7.40 7.30 L ABG pCO2 50 H 65 H* ABG pO2 57 L* 80 ABG HCO3 30 H 31 H ABG O2 Content 11.9 L 12.4 ABG Base Excess 5.3 H 4.9 H ABG Methemoglobin 0.9 0.8 Rajendra Test Present Y Hemoglobin 9.7 L 9.4 L Carboxyhemoglobin 1.3 1.1 O2 Delivery Device Nasal cannula Nasal cannula Liter Flow 4.00 1.00 Critical Value Yes Yes Total Creatine Kinase 36 Troponin I Less than 0.02 L 07/24/18 00:20 Puncture Site Patient Temperature O2 Saturation ABG pH ABG pCO2 ABG pO2 ABG HCO3 ABG O2 Content ABG Base Excess ABG Methemoglobin Rajendra Test Hemoglobin Carboxyhemoglobin O2 Delivery Device Liter Flow Critical Value Total Creatine Kinase 46 Troponin I Less than 0.02 L Assessment and Plan - Assessment (1) Chest pain in adult Code(s): R07.9 - Chest pain, unspecified Status: Acute (2) COPD with acute exacerbation Code(s): J44.1 - Chronic obstructive pulmonary disease with (acute) exacerbation Status: Acute - Plan This is an 87-year-old female patient with: COPD with exacerbation with hypoxia and need for supplemental O2 Hypercapnia secondary to above -CBC reviewed and essentially unremarkable. -CXR reviewed personally which does mention infiltrates on report although appears to be chronic findings. Will continue to monitor. -Patients O2 sat on RA, 87%. Continue supplemental O2 to keep sats >92%. BIPAP as needed. -Continue duonebs scheduled and as needed for wheezing/sob. Added azithromycin. -Methylprednisone IV continued. -PT evaluation appreciated, recommendations for rehab on discharge. -Continue to monitor and supportive care. Chest pain suspect secondary to COPD exacerbation, atypical New onset a fib -Upon review of records there is no history of atrial fibrillation. Patient's daughter is also unaware of any history. Will obtain an ECHO as well as TSH. -Serial EKGs and serial troponins have been ordered for ruling out ACS purposes. Troponins flat. -EKG reviewed showing atrial fibrillation with controlled heart rate. No ST changes. -Chest pain was transient and patient unable to characterize. At time of assessment has resolved. No chest pain overnight. -Continue to monitor cardiac rhythm. Acute on chronic hyponatremia -Na 125 on presentation. Other electrolytes normal. -Patient takes sodium chloride tablets at home. Will continue. -Monitor BMP today. DVT Prophylaxis: SCDs. Heparin. Discharge Planning: Awaiting clinical improvement. Still on supplemental O2.
[2018-07-24 14:19] LABS: Baso # (Auto) 0.3 th/mm3 (0.0-0.2); Baso % (Auto) 3.9 % (0.0-2.0); Eos % (Auto) 0.1 % (0.0-4.0); Hematocrit 32.2 % (35.0-46.0); Hemoglobin 10.1 gm/dL (11.6-15.3); Lymph # (Auto) 0.6 th/mm3 (1.0-4.8); Lymph % (Auto) 8.3 % (9.0-44.0); Mean Corpuscular HGB Conc 31.2 % (32.0-36.0); Mean Corpuscular Hemoglobin 26.2 pg (27.0-34.0); Mean Corpuscular Volume 83.8 fL (80.0-100.0); Mean Platelet Volume 6.8 fL (7.0-11.0); Mono # (Auto) 0.1 th/mm3 (0.0-0.9); Mono % (Auto) 1.1 % (0.0-8.0); Neut # (Auto) 6.4 th/mm3 (1.8-7.7); Neut % (Auto) 86.6 % (16.0-70.0); Platelet Count 293 th/mm3 (150-450); Red Blood Count 3.85 mil/mm3 (4.00-5.30); Red Cell Distribution Width 15.7 % (11.6-17.2); White Blood Count 7.4 th/mm3 (4.0-11.0)
[2018-07-24 14:30] LABS: Potassium 4.6 meq/L (3.5-5.1)
[2018-07-24 14:33] LABS: Calcium 8.5 mg/dL (8.5-10.1); Carbon Dioxide 31.6 meq/L (21.0-32.0)
[2018-07-24] MEDS: Azithromycin 250 MG Tablet PO SCH (16:33)
--- NOTE | 2018-07-24 19:45 | ECHRPT ---
Indication: ATRIAL FIB/FLUTTER CONCLUSIONS Normal left ventricular size. Wall thickness is normal. The left ventricular systolic function is mildly reduced with an estimated ejection fraction in the range of 45- 50%. The right atrial size is moderately dilated. The interatrial septum not well visualized. The aortic root and proximal ascending aorta are not well visualized. [id number] mitral valve regurgitation. Aortic valve sclerosis is present. There is mild to moderate tricuspid valve regurgitation. The estimated pulmonary arterial pressure is 51.5 mmHg. The inferior vena cava was not well visualized. BP: / HR: Rhythm: Sinus MEASUREMENTS (Male / Female) Normal Values Technical Quality:Fair 2D ECHO LV Diastolic Diameter PLAX 4.0 cm 4.2 - 5.9 / 3.9 - 5.3 cm LV Systolic Diameter PLAX 3.4 cm IVS Diastolic Thickness 0.9 cm 0.6 - 1.0 / 0.6 - 0.9 cm LVPW Diastolic Thickness 0.9 cm 0.6 - 1.0 / 0.6 - 0.9 cm LV Relative Wall Thickness 0.5 RV Internal Dim ED PLAX 2.1 cm LVOT Diameter 1.8 cm Aortic Root Diameter 2.8 cm LA Systolic Diameter LX 3.0 cm 3.0 - 4.0 / 2.7 - 3.8 cm M-MODE AV Cusp Separation MM 1.5 cm DOPPLER AV Peak Velocity 153.5 cm/s AV Peak Gradient 9.4 mmHg AV Mean Gradient 5.5 mmHg AV Velocity Time Integral 32.3 cm LVOT Peak Velocity 54.4 cm/s LVOT Peak Gradient 1.2 mmHg LVOT Velocity Time Integral 12.4 cm AV Area Cont Eq vti 1.0 cm AV Area Cont Eq pk 0.9 cm Mitral E Point Velocity 112.6 cm/s LV E' Lateral Velocity 12.4 cm/s Mitral E to LV E' Lateral Ratio 9.1 LV E' Septal Velocity 7.8 cm/s Mitral E to LV E' Septal Ratio 14.4 TR Peak Velocity 322.0 cm/s TR Peak Gradient 41.5 mmHg Right Atrial Pressure 10.0 mmHg Pulmonary Artery Systolic Pressu 51.5 mmHg Right Ventricular Systolic Press 51.5 mmHg PV Peak Velocity 45.1 cm/s PV Peak Gradient 0.8 mmHg FINDINGS LEFT VENTRICLE Normal left ventricular size. Wall thickness is normal. The left ventricular systolic function is mildly reduced with an estimated ejection fraction in the range of 45- 50%. RIGHT VENTRICLE Normal right ventricular size and systolic function. LEFT ATRIUM The left atrial size is normal. RIGHT ATRIUM The right atrial size is moderately dilated. ATRIAL SEPTUM The interatrial septum not well visualized. AORTA The aortic root and proximal ascending aorta are not well visualized. MITRAL VALVE Bfem-[id number] mitral valve regurgitation. AORTIC VALVE Aortic valve sclerosis is present. TRICUSPID VALVE There is mild to moderate tricuspid valve regurgitation. The estimated pulmonary arterial pressure is 51.5 mmHg. PULMONARY VALVE No pulmonary valve regurgitation or stenosis. VESSELS The inferior vena cava was not well visualized. PERICARDIUM No pericardial effusion. Claudio Garcia MD, FACC (Electronically Signed) Final Date:24 July 2018 19:44
[2018-07-25] MEDS: MethylPREDNISolone Sod Succinate Inj 40 MG/ML Vial IV.PUSH SCH ×4 (04:13→21:23)
--- NOTE | 2018-07-25 09:02 | CT ---
EXAM DATE: 07/25/2018 8:57 AM EDT AGE/SEX: 87 years / Female INDICATIONS: Short of Breath CLINICAL DATA: This is the patient's initial encounter. Patient reports that signs and symptoms have been present for 2 days and indicates a pain score of 0/10. MEDICAL/SURGICAL HISTORY: Hypertension. Seizures. Appendectomy. Cholecystectomy. RADIATION DOSE: 21.51 CTDI (mGy) COMPARISON: HHPO, CT PULMONARY ANGIOGRAM, 01/05/2018. . TECHNIQUE: Multiple contiguous axial images were obtained through the chest without contrast. Image s were obtained in suspended respiration using multiple row detector helical technique. Using automa jorge exposure control and adjustment of the mA and/or kV according to patient size, radiation dose was kept as low as reasonably achievable to obtain optimal diagnostic quality images. DICOM format imag e data is available electronically for review and comparison. FINDINGS: Cardiomegaly with moderate interstitial edema and small bilateral pleural effusions. There is obvious consolidation. Is no axillary adenopathy. There is no radiographically significant mediastinal adenopathy There are small trace ascites. Air is seen in the left hepatic bile duct and common duct. Moderate degenerative changes in the bony skeleton visualized. CONCLUSION: 1. Moderate congestive failure with increasing interstitial edema and small bilateral pleural effusi ons when compared to 01/05/2018. 2. Stable pneumobilia. Electronically signed by: Randy Villa MD 07/25/2018 9:01 AM EDT
[2018-07-25] MEDS: Heparin - SQ 10,000 UNITS/ML Vial SQ SCH ×2 (09:05→20:22)
[2018-07-25] MEDS: Azithromycin 250 MG Tablet PO SCH (09:05)
[2018-07-25] MEDS: amLODIPine 5 MG Tablet PO SCH (09:05)
[2018-07-25] MEDS: Sodium Chloride 1 GM Tablet PO SCH ×2 (09:05→20:21)
[2018-07-25] MEDS: levETIRAcetam 500 MG Tablet PO SCH ×2 (09:05→20:21)
[2018-07-25] MEDS: Atenolol 25 MG Tablet PO SCH (09:05)
--- NOTE | 2018-07-25 12:46 | P.PNIM ---
Subjective Interval history: Follow up COPD exacerbation. Patient seen and examined, lying in bed on supplemental O2. Patient is disoriented, underlying dementia. ABG done and reviewed. VSS and afebrile. No acute events overnight. Tolerating BIPAP overnight. CT chest without significant findings. Pulm consulted. Increased diuretics. Physical Exam Vital signs: Vital Signs 07/24/18 13:00 07/24/18 13:28 07/24/18 14:00 Temperature Pulse Rate 74 89 84 Respiratory Rate 18 24 27 H Blood Pressure 123/61 126/70 Pulse Oximetry 96 87 L 07/24/18 15:00 07/24/18 16:00 07/24/18 17:00 Temperature Pulse Rate 80 74 76 Respiratory Rate 23 15 24 Blood Pressure 103/66 103/60 120/66 Pulse Oximetry 70 L 93 L 93 L 07/24/18 18:00 07/24/18 19:00 07/24/18 19:35 Temperature Pulse Rate 76 74 75 Respiratory Rate 35 H 35 H 23 Blood Pressure 101/64 Pulse Oximetry 91 L 89 L 95 07/24/18 20:00 07/24/18 21:00 07/24/18 22:00 Temperature 97.5 F L Pulse Rate 74 74 70 Respiratory Rate 19 19 16 Blood Pressure 105/49 L Pulse Oximetry 95 96 99 07/24/18 23:00 07/24/18 23:55 07/25/18 00:00 Temperature 97.5 F L Pulse Rate 68 78 Respiratory Rate 17 21 Blood Pressure 117/63 Pulse Oximetry 99 94 L 91 L 07/25/18 01:00 07/25/18 02:00 07/25/18 02:55 Temperature Pulse Rate 70 74 Respiratory Rate 16 23 Blood Pressure Pulse Oximetry 96 94 L 97 07/25/18 03:00 07/25/18 04:00 07/25/18 05:00 Temperature 97.1 F L Pulse Rate 62 70 76 Respiratory Rate 14 25 H 15 Blood Pressure 122/64 Pulse Oximetry 97 96 96 07/25/18 06:00 07/25/18 08:09 Temperature Pulse Rate 82 83 Respiratory Rate 27 H 21 Blood Pressure Pulse Oximetry 86 L 94 L Intake & Output 07/24/18 07/25/18 07/25/18 18:59 06:59 18:59 Intake Total 600 / 600 240 / 240 Output Total 1020 / 1020 700 / 700 Balance -420 / -420 -460 / -460 Weight 101.4 kg Intake: Oral 600 / 600 240 / 240 Output: Urine 720 / 720 300 / 300 Urine/Stool Mix 0 / 0 Wound Drainage 300 / 300 400 / 400 Right Calf 300 / 300 400 / 400 Other: Date of Last Bowel Movement 07/22/18 07/22/18 Narrative: GENERAL: Well-developed, well-nourished elderly female patient in NAD. On supplemental O2. Confused. SKIN: Warm and dry. No rash. HEAD: Normocephalic. Atraumatic. EYES: Pupils equal and round. No scleral icterus. No injection or drainage. ENT: No nasal bleeding or discharge. Mucous membranes pink and moist. NECK: Supple. Trachea midline. CARDIOVASCULAR: Irregularly irregular rhythm. RESPIRATORY: No accessory muscle use. Scattered coarse breath sounds throughout. Breath sounds equal bilaterally. GASTROINTESTINAL: Abdomen soft, non-tender, nondistended. Normoactive bowel sounds x4. MUSCULOSKELETAL: No obvious deformities. Extremities without clubbing, cyanosis. Bilateral lower extremity trace edema and right lower extremity skin tear, draining serous fluid. NEUROLOGICAL: Awake and alert, pleasantly confused. No obvious cranial nerve deficits. Motor grossly within normal limits. 4/5 muscle strength in bilateral upper and lower extremities. Results - Labs CBC & Chem 7: 07/25/18 13:45 07/24/18 14:05 Laboratory Results - last 24 hr 07/24/18 07/24/18 07/24/18 14:05 14:05 14:05 CBC w Diff Auto diff final WBC 7.4 RBC 3.85 L Hgb 10.1 L Hct 32.2 L MCV 83.8 MCH 26.2 L MCHC 31.2 L RDW 15.7 Plt Count 293 MPV 6.8 L Neut % (Auto) 86.6 H Lymph % (Auto) 8.3 L Rush % (Auto) 1.1 Eos % (Auto) 0.1 Baso % (Auto) 3.9 H Neut # (Auto) 6.4 Lymph # (Auto) 0.6 L Rush # (Auto) 0.1 Eos # (Auto) 0.0 Baso # (Auto) 0.3 H WBC Differential . Differential Comment . Sodium 125 L Potassium 4.6 Chloride 87 L Carbon Dioxide 31.6 Anion Gap 6 BUN 14 Creatinine 0.85 Estimated GFR 63 L Random Glucose 163 H Calcium 8.5 TSH 2.100 - Imaging Impressions Chest CT 07/25/18 00:00 CONCLUSION: 1. Moderate congestive failure with increasing interstitial edema and small bilateral pleural effusions when compared to 01/05/2018. 2. Stable pneumobilia. Assessment and Plan - Assessment (1) Chest pain in adult Code(s): R07.9 - Chest pain, unspecified Status: Acute (2) COPD with acute exacerbation Code(s): J44.1 - Chronic obstructive pulmonary disease with (acute) exacerbation Status: Acute - Plan This is an 87-year-old female patient with: COPD with exacerbation with hypoxia and need for supplemental O2 Community acquired pneumonia Hypercapnia secondary to above. Improved. -CBC reviewed and essentially unremarkable. -CXR reviewed personally which does mention infiltrates on report although appears to be chronic findings. Will continue to monitor. -Patients O2 sat on RA, 87%. Continue supplemental O2 to keep sats >92%. BIPAP as needed at night. ABG done today, appears to be compensating, Co2 improved. -Continue duonebs scheduled and as needed for wheezing/sob. Continue azithromycin. -Methylprednisone IV continued. Wean. -PT evaluation appreciated, recommendations for rehab on discharge. -CT Chest ordered and reviewed, showing pleural effusions and congestion as well as consolidation. -Pulmonary consulted, input and recommendations pending. Patient is not improving. -Continue to monitor and supportive care. Chest pain suspect secondary to COPD exacerbation, atypical. Improved. New onset a fib, stable. -Upon review of records there is no history of atrial fibrillation. Patient's daughter is also unaware of any history. ECHO, EF 45-50%. TSH normal. -Serial EKGs and serial troponins have been ordered for ruling out ACS purposes. Troponins flat. -EKG reviewed showing atrial fibrillation with controlled heart rate. No ST changes. -Chest pain was transient and patient unable to characterize. At time of assessment has resolved. No chest pain overnight. -Continue to monitor cardiac rhythm. Systolic congestive heart failure in exacerbation -ECHO showing mildly diminished left systolic function, EF 45-50%. -Takes Lasix 20 mg PO daily. Will change to Lasix 40 mg IV BID. Monitor intake and output closely. -CXR reviewed showing congestion and small pleural effusions. Continue to monitor. Acute on chronic hyponatremia -Na 125 on presentation. Other electrolytes normal. -Patient takes sodium chloride tablets at home. Will continue. DVT Prophylaxis: SCDs. Heparin. Discharge Planning: Awaiting clinical improvement. Still on supplemental O2.
--- NOTE | 2018-07-25 13:01 | ECG ---
Date Performed: 07/24/2018 Time Performed: 00:14:29 PTAGE: 87 years EKG: ATRIAL FIBRILLATION LOW QRS VOLTAGE IN PRECORDIAL LEADS NON-SPECIFIC ST/T WAVE CHANGES ABNO RMAL RHYTHM ECG PREVIOUS TRACING : 07/23/2018 18.15 Since the previous tracing, no significant change noted DOCTOR: Milad Llanes Interpretating Date/Time 07/25/2018 13:00:01
--- NOTE | 2018-07-25 13:20 | ECG ---
Date Performed: 07/23/2018 Time Performed: 18:15:25 PTAGE: 87 years EKG: ATRIAL FIBRILLATION NONSPECIFIC T-WAVE ABNORMALITY ABNORMAL RHYTHM ECG PREVIOUS TRACING : 07/23/2018 11.42 Since the previous tracing, no significant change noted DOCTOR: Milad Llanes Interpretating Date/Time 07/25/2018 13:18:41
[2018-07-25 13:30] LABS: ABG Base Excess 4.9 mmol/L (-2-2); ABG PCO2 42 mmHg (38-42); ABG PO2 68 mmHg (61-120)
--- NOTE | 2018-07-25 13:39 | ECG ---
Date Performed: 07/23/2018 Time Performed: 11:42:02 PTAGE: 87 years EKG: ATRIAL FIBRILLATION ABNORMAL RHYTHM ECG PREVIOUS TRACING : 01/01/2018 03.15 Compared to previous tracing, now in AFib DOCTOR: Milad Llanes Interpretating Date/Time 07/25/2018 13:38:49
[2018-07-25 14:01] LABS: Baso # (Auto) 0.1 th/mm3 (0.0-0.2); Baso % (Auto) 0.8 % (0.0-2.0); Hematocrit 30.2 % (35.0-46.0); Hemoglobin 10.1 gm/dL (11.6-15.3); Lymph # (Auto) 0.5 th/mm3 (1.0-4.8); Lymph % (Auto) 4.3 % (9.0-44.0); Mean Corpuscular HGB Conc 33.5 % (32.0-36.0); Mean Corpuscular Hemoglobin 27.4 pg (27.0-34.0); Mean Corpuscular Volume 81.8 fL (80.0-100.0); Mean Platelet Volume 7.2 fL (7.0-11.0); Mono % (Auto) 0.3 % (0.0-8.0); Neut # (Auto) 11.2 th/mm3 (1.8-7.7); Neut % (Auto) 94.6 % (16.0-70.0); Platelet Count 359 th/mm3 (150-450); Red Blood Count 3.69 mil/mm3 (4.00-5.30); Red Cell Distribution Width 16.2 % (11.6-17.2); White Blood Count 11.8 th/mm3 (4.0-11.0)
--- NOTE | 2018-07-25 14:34 | MB ---
cc: Nishant Andino MD DATE: 07/25/2018 REASON FOR CONSULTATION: COPD. HISTORY OF PRESENT ILLNESS: The patient is an 87-year-old female with past medical history of hypertension, COPD, seizure disorder, who was admitted to the hospitalist service on 07/23/2018 for shortness of breath and COPD exacerbation. Also, the patient was found to be hyponatremic with a sodium level of 125. She had a chest x-ray on arrival, which showed bibasilar patchiness consistent with possible developing infiltrates as well as minimal patchiness in the right upper lobe. She subsequently underwent a CT of the chest this morning, which showed moderate congestive failure with increasing interstitial edema and small bilateral pleural effusion. When seen the patient is on 1-2 liter oxygen with good saturation. She is a poor historian and most of the history was obtained from reviewing medical records. She had an ABG done this afternoon, which overall improved compared to a previous blood gas on 07/23/2018. Her ABG showed a pH of 7.45, CO2 42, PaO2 68, bicarbonate of 29, and saturation of 92% on 2 liter oxygen. No history of GI symptoms. PAST MEDICAL HISTORY: Significant for hypertension, seizure disorder, COPD. PAST SURGICAL HISTORY: Appendectomy, previous bilateral knee replacement, previous cholecystectomy. ALLERGIES: CHLORPROMAZINE. SOCIAL HISTORY: Former smoker, occasional drinker. FAMILY HISTORY: Noncontributory to present illness. CURRENT MEDICATIONS: 1. DuoNeb. 2. Norvasc. 3. Tenormin. 4. Lasix. REVIEW OF SYSTEMS: As per HPI, review of systems limited as the patient is a poor historian. PHYSICAL EXAMINATION: GENERAL: An 87-year-old female, lying in bed, in no acute respiratory distress. VITAL SIGNS: Temperature of 97.1, pulse of 98, respiratory rate of 27, blood pressure 119/64, saturation 94% on 1 liter oxygen. HEENT: Atraumatic, normocephalic. Pupils equal, round, reactive to light and accommodation. Extraocular muscles are intact. Conjunctivae pink. Nonicteric sclerae. Oral mucosa within normal. NECK: Supple. No JVD, adenopathy, or thyromegaly. Trachea midline. CARDIOVASCULAR: Regular rate and rhythm. Normal S1, S2. No murmurs, rubs, or gallops noted. PULMONARY: Bilateral equal air entry. Diminished breath sounds at the bases. ABDOMEN: Soft, obese, nontender. No distention. Positive bowel sounds. EXTREMITIES: No cyanosis or clubbing. Trace edema. NEUROLOGIC: No focal sensory deficit. LABORATORY DATA: WBC 11.8, hemoglobin 10, hematocrit 30, platelet count 359. Sodium 125, potassium 4.6, chloride 87, CO2 31, BUN 14, creatinine 0.85, glucose of 163. TSH 2.1. ABG showed a pH of 7.45, CO2 of 42, PaO2 68, bicarbonate 29, saturation 92% on 2 liter oxygen. RADIOGRAPHIC STUDIES: CT chest from today showed moderate congestive failure with increasing interstitial edema and small bilateral pleural effusion. ASSESSMENT AND PLAN: 1. Acute hypoxemic and hypercapnic respiratory insufficiency. 2. Chronic obstructive pulmonary disease exacerbation. 3. Congestive heart failure decompensation. 4. Hyponatremia, likely secondary to congestive heart failure. 5. Mild leukocytosis. 6. Anemia. 7. Hypertension. RECOMMENDATIONS: 1. Continue with oxygen and maintain sats above 92%. 2. Bronchodilators in the form of DuoNeb every 6 hours plus every 2 hours p.r.n. for shortness of breath. 3. Continue with IV steroids, Solu-Medrol 40 mg IV every 6 hours. 4. Noninvasive positive pressure ventilation p.r.n. for respiratory distress. 5. Continue with empiric antibiotics in the form with Rocephin and monitor for signs of infection, which include fever and WBC. Obtain a sputum culture with Gram stain. 6. Agree with diuretics. Lasix was increased to 40 mg IV b.i.d. Obtain a BNP and will check 2D echo to evaluate LV function. 7. Gastrointestinal and deep venous thrombosis prophylaxis per primary team. 8. Further recommendations will be based on hospital course. Thank you for this consultation and allowing us to participate in this patient's care. MD HOLLEY Hernandez/helene , 02:12 PM , 02:23 PM
--- NOTE | 2018-07-25 16:42 | CT ---
EXAM DATE: 07/25/2018 4:39 PM EDT AGE/SEX: 87 years / Female INDICATIONS: Transient ischemic attack CLINICAL DATA: This is the patient's initial encounter. Patient reports that signs and symptoms have been present for 1 day and indicates a pain score of 0/10. MEDICAL/SURGICAL HISTORY: Hypertension. Seizures. Cholecystectomy. Appendectomy. RADIATION DOSE: 67.48 CTDI (mGy) COMPARISON: [facility]PO, MRI BRAIN W & W/O CONTRAST, 01/03/2018. . TECHNIQUE: CT of the head without contrast. Using automated exposure control and adjustment of the mA and/or kV according to patient size, radiation dose was kept as low as reasonably achievable to ob tain optimal diagnostic quality images. DICOM format image data is available electronically for revi ew and comparison. FINDINGS: There is diffuse atrophy greatest in the bifrontal regions. 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 There is mild periventricular white matter disease which is stable. No signs of acute in farct, hemorrhage or mass. No fractures. CONCLUSION: 1. Stable appearance of the brain. . Electronically signed by: Bladimir Vicente MD 07/25/2018 4:41 PM EDT
[2018-07-25] MEDS: Furosemide 20 MG Tablet PO SCH (18:34)
[2018-07-26] MEDS: MethylPREDNISolone Sod Succinate Inj 40 MG/ML Vial IV.PUSH SCH ×5 (04:30→23:59)
[2018-07-26] MEDS: Atenolol 25 MG Tablet PO SCH ×2 (10:05→10:42)
[2018-07-26] MEDS: Sodium Chloride 1 GM Tablet PO SCH ×2 (10:23→20:06)
[2018-07-26] MEDS: levETIRAcetam 500 MG Tablet PO SCH ×2 (10:24→20:06)
[2018-07-26] MEDS: amLODIPine 5 MG Tablet PO SCH (10:24)
[2018-07-26] MEDS: Azithromycin 250 MG Tablet PO SCH (10:24)
[2018-07-26] MEDS: Heparin - SQ 10,000 UNITS/ML Vial SQ SCH ×2 (10:25→20:06)
[2018-07-26 11:23] LABS: Baso # (Auto) 0.1 th/mm3 (0.0-0.2); Baso % (Auto) 0.6 % (0.0-2.0); Eos # (Auto) 0.1 th/mm3 (0.0-0.4); Eos % (Auto) 0.8 % (0.0-4.0); Hematocrit 30.8 % (35.0-46.0); Hemoglobin 10.3 gm/dL (11.6-15.3); Lymph # (Auto) 0.7 th/mm3 (1.0-4.8); Lymph % (Auto) 8.7 % (9.0-44.0); Mean Corpuscular HGB Conc 33.4 % (32.0-36.0); Mean Corpuscular Hemoglobin 27.4 pg (27.0-34.0); Mono % (Auto) 0.2 % (0.0-8.0); Neut # (Auto) 7.6 th/mm3 (1.8-7.7); Neut % (Auto) 89.7 % (16.0-70.0); Platelet Count 305 th/mm3 (150-450); Red Blood Count 3.75 mil/mm3 (4.00-5.30); Red Cell Distribution Width 15.9 % (11.6-17.2); White Blood Count 8.5 th/mm3 (4.0-11.0)
--- NOTE | 2018-07-26 11:31 | P.PNIM ---
Subjective Interval history: Follow up COPD exacerbation, PNA and CHF. Patient seen and examined, lying in bed comfortably in nad. On 2LNC. Patient is awake and alert, oriented x 2. Underlying dementia. Son at bedside and updated about patient condition. Attempted to wean to RA while conversing and patient O2 desat to 87%. Encouraged increase in activity and IS. Continued on BIPAP at night. Physical Exam Vital signs: Vital Signs 07/25/18 12:00 07/25/18 12:10 07/25/18 14:00 Temperature Pulse Rate 74 80 80 Respiratory Rate 33 H 20 Blood Pressure 127/64 Pulse Oximetry 89 L 95 07/25/18 14:17 07/25/18 15:00 07/25/18 16:00 Temperature Pulse Rate 89 92 H 78 Respiratory Rate 22 44 H 29 H Blood Pressure Pulse Oximetry 95 89 L 98 07/25/18 18:00 07/25/18 19:24 07/25/18 20:00 Temperature 97.5 F L Pulse Rate 72 84 91 H Respiratory Rate 20 25 H Blood Pressure 137/85 Pulse Oximetry 95 93 L 07/25/18 22:00 07/25/18 23:45 07/26/18 00:00 Temperature 96.1 F L Pulse Rate 87 81 Respiratory Rate 24 Blood Pressure 114/59 L Pulse Oximetry 94 L 94 L 07/26/18 02:00 07/26/18 02:40 07/26/18 04:00 Temperature 96.4 F L Pulse Rate 94 H 77 Respiratory Rate 14 Blood Pressure 127/65 Pulse Oximetry 95 93 L 07/26/18 04:30 07/26/18 06:00 07/26/18 08:17 Temperature Pulse Rate 87 78 Respiratory Rate 20 Blood Pressure Pulse Oximetry 95 92 L Intake & Output 07/25/18 07/26/18 07/26/18 18:59 06:59 18:59 Intake Total 480 / 480 160 / 160 Output Total 1050 / 1050 910 / 910 Balance -570 / -570 -750 / -750 Weight 101.3 kg Intake: Oral 480 / 480 160 / 160 Output: Urine 400 / 400 800 / 800 Wound Drainage 650 / 650 110 / 110 Right Calf 650 / 650 110 / 110 Other: # Incontinent Voids 1 Date of Last Bowel Movement 07/22/18 07/22/18 # Bowel Movements 0 Results - Labs CBC & Chem 7: 07/26/18 11:15 07/26/18 11:15 Laboratory Results - last 24 hr 07/25/18 07/25/18 07/25/18 13:27 13:40 13:45 CBC w Diff Auto diff final WBC 11.8 H D RBC 3.69 L Hgb 10.1 L Hct 30.2 L MCV 81.8 MCH 27.4 MCHC 33.5 RDW 16.2 Plt Count 359 MPV 7.2 Neut % (Auto) 94.6 H Lymph % (Auto) 4.3 L Burnet % (Auto) 0.3 Eos % (Auto) 0.0 Baso % (Auto) 0.8 Neut # (Auto) 11.2 H Lymph # (Auto) 0.5 L Burnet # (Auto) 0.0 Eos # (Auto) 0.0 Baso # (Auto) 0.1 WBC Differential . Differential Comment . Puncture Site Left radial Patient Temperature 98.6 O2 Saturation 92 ABG pH 7.45 H ABG pCO2 42 ABG pO2 68 ABG HCO3 29 H ABG O2 Content 12.6 ABG Base Excess 4.9 H ABG Methemoglobin 0.8 Rajendra Test Present Hemoglobin 9.7 L Carboxyhemoglobin 1.1 O2 Delivery Device Nasal cannula Liter Flow 2.00 Critical Value No Osmolality B-Natriuretic Peptide 165 H Urine Osmolality 07/25/18 07/25/18 07/26/18 15:23 19:51 11:15 CBC w Diff Auto diff final WBC 8.5 RBC 3.75 L Hgb 10.3 L Hct 30.8 L MCV 82.0 MCH 27.4 MCHC 33.4 RDW 15.9 Plt Count 305 MPV 7.0 Neut % (Auto) 89.7 H Lymph % (Auto) 8.7 L Burnet % (Auto) 0.2 Eos % (Auto) 0.8 Baso % (Auto) 0.6 Neut # (Auto) 7.6 Lymph # (Auto) 0.7 L Burnet # (Auto) 0.0 Eos # (Auto) 0.1 Baso # (Auto) 0.1 WBC Differential . Differential Comment . Puncture Site Patient Temperature O2 Saturation ABG pH ABG pCO2 ABG pO2 ABG HCO3 ABG O2 Content ABG Base Excess ABG Methemoglobin Rajendra Test Hemoglobin Carboxyhemoglobin O2 Delivery Device Liter Flow Critical Value Osmolality 277 B-Natriuretic Peptide Urine Osmolality 309 - Imaging Impressions Head CT 07/25/18 14:28 CONCLUSION: 1. Stable appearance of the brain. . Assessment and Plan - Assessment (1) Chest pain in adult Code(s): R07.9 - Chest pain, unspecified Status: Acute (2) COPD with acute exacerbation Code(s): J44.1 - Chronic obstructive pulmonary disease with (acute) exacerbation Status: Acute - Plan This is an 87-year-old female patient with: COPD with exacerbation with hypoxia and need for supplemental O2 Community acquired pneumonia Respiratory acidosis with hypercapnia secondary to above. Improving. -CBC reviewed and essentially unremarkable. -CXR reviewed personally which does mention infiltrates on report although appears to be chronic findings. Will continue to monitor. -Patients O2 sat on RA, 87%. Continue supplemental O2 to keep sats >92%. BIPAP as needed at night. ABG done yesterday, appears to be compensating, Co2 improved. -Continue duonebs scheduled and as needed for wheezing/sob. Continue azithromycin added ceftriaxone. -Methylprednisone IV continued. Wean. -PT evaluation appreciated, recommendations for rehab on discharge. -CT Chest ordered and reviewed, showing pleural effusions and congestion as well as consolidation. -Pulmonary consulted, input and recommendations pending. Patient is not improving. -Continue to monitor and supportive care. Chest pain suspect secondary to COPD exacerbation, atypical. Improved. New onset a fib, stable. -Upon review of records there is no history of atrial fibrillation. Patient's daughter is also unaware of any history. ECHO, EF 45-50%, pulm art pressure 51mm. TSH normal. -Serial EKGs and serial troponins have been ordered for ruling out ACS purposes. Troponins flat. -EKG reviewed showing atrial fibrillation with controlled heart rate. No ST changes. -Chest pain was transient and patient unable to characterize. At time of assessment has resolved. No chest pain overnight. -Continue to monitor cardiac rhythm. Systolic congestive heart failure in exacerbation Moderate pulmonary hypertension -ECHO showing mildly diminished left systolic function, EF 45-50%, pulmonary artery pressure 51mm. -Takes Lasix 20 mg PO daily. On Lasix 40 mg IV BID. Monitor intake and output closely. -CXR reviewed showing congestion and small pleural effusions. Continue to monitor. -Improving slowly. Acute on chronic hyponatremia -Na 125 on presentation, today 126. Other electrolytes normal. -Patient takes sodium chloride tablets at home. Will continue. -Continued diuretics. DVT Prophylaxis: SCDs. Heparin. Discharge Planning: Awaiting clinical improvement. Still on supplemental O2 and requiring BIPAP at night.
[2018-07-26 11:34] LABS: Calcium 8.2 mg/dL (8.5-10.1); Carbon Dioxide 29.2 meq/L (21.0-32.0)
--- NOTE | 2018-07-26 13:09 | P.PNPL ---
Subjective Interval history: No events overnight. Awake, alert confused at times. On 2.5L oxygen. Afebrile. Physical Exam Vital signs: Vital Signs 07/25/18 14:00 07/25/18 14:17 07/25/18 15:00 Temperature Pulse Rate 80 89 92 H Respiratory Rate 20 22 44 H Blood Pressure Pulse Oximetry 95 95 89 L 07/25/18 16:00 07/25/18 18:00 07/25/18 19:24 Temperature Pulse Rate 78 72 84 Respiratory Rate 29 H 20 Blood Pressure Pulse Oximetry 98 95 07/25/18 20:00 07/25/18 22:00 07/25/18 23:45 Temperature 97.5 F L Pulse Rate 91 H 87 Respiratory Rate 25 H Blood Pressure 137/85 Pulse Oximetry 93 L 94 L 07/26/18 00:00 07/26/18 02:00 07/26/18 02:40 Temperature 96.1 F L Pulse Rate 81 94 H Respiratory Rate 24 Blood Pressure 114/59 L Pulse Oximetry 94 L 95 07/26/18 04:00 07/26/18 04:30 07/26/18 06:00 Temperature 96.4 F L Pulse Rate 77 87 Respiratory Rate 14 Blood Pressure 127/65 Pulse Oximetry 93 L 95 07/26/18 08:00 07/26/18 08:17 Temperature Pulse Rate 84 78 Respiratory Rate 20 20 Blood Pressure Pulse Oximetry 95 92 L Intake & Output 07/25/18 07/26/18 07/26/18 18:59 06:59 18:59 Intake Total 480 / 480 160 / 160 Output Total 1050 / 1050 910 / 910 Balance -570 / -570 -750 / -750 Weight 101.3 kg Intake: Oral 480 / 480 160 / 160 Output: Urine 400 / 400 800 / 800 Wound Drainage 650 / 650 110 / 110 Right Calf 650 / 650 110 / 110 Other: # Incontinent Voids 1 Date of Last Bowel Movement 07/22/18 07/22/18 07/22/18 # Bowel Movements 0 - Constitutional no acute distress - Routine HEENT Exam Head: Present: normocephalic, atraumatic Eye: Present: EOMI, PERRL, normal accommodation, conjunctivae pink ENT: Present: mucous membranes moist - Routine Neck Exam Present: supple, full ROM, trachea midline - Routine Respiratory Exam Present: CTA bilaterally - Routine Cardiovascular Exam Present: RRR, S1, S2 - Routine Abdominal Exam Present: soft, normoactive bowel sounds - Routine Extremities Exam Present: pulses intact - Routine Skin Exam Present: intact, dry - Routine Neurological Exam Present: alert Assessment and Plan - Plan 1. Acute hypoxemic and hypercapnic respiratory insufficiency. 2. COPD exacerbation. 3. CHF. 4. Hyponatremia, likely 2nd CHF 5. Mild leukocytosis. 6. Anemia. 7. Hypertension. 8 Obesity Plan Continue with oxygen and maintain sats above 92%. Bronchodilators IV steroids, Solu-Medrol 40 mg IV every 6 hours. Repeat ABG yesterday showed improvements in resp acidosis BIPAP PRN for respiratory distress. Continue abx (Rocephin and Zithromax)monitor for signs of infections( fever and WBC). Check sputum culture On Lasix 40 mg IV b.i.d. Echo showed EF 45-60%, mod pulm HTN PAP 51mmHg GI/DVT prophylaxis- On Heparin Sq Continue treatment plan
[2018-07-27] MEDS: MethylPREDNISolone Sod Succinate Inj 40 MG/ML Vial IV.PUSH SCH ×3 (05:52→20:53)
--- NOTE | 2018-07-27 07:46 | P.PNIM ---
Subjective Interval history: Follow up COPD exacerbation, pna and CHF. Patient seen and examined, sitting up in bed comfortably in nad. Reading the newspaper. In good spirits, pleasantly confused with underlying dementia. ABG improved overnight. Weaned down to 1LNC. Negative fluid balance. Patient is eating well, without any complaints. Denies any chest pain or shortness of breath. Spoke to bedside RN, no reports of any acute events overnight. Physical Exam Vital signs: Vital Signs 07/26/18 08:00 07/26/18 08:17 07/26/18 10:00 Temperature Pulse Rate 84 78 80 Respiratory Rate 20 20 Blood Pressure Pulse Oximetry 95 92 L 07/26/18 10:24 07/26/18 11:00 07/26/18 11:58 Temperature Pulse Rate 86 88 90 Respiratory Rate 30 H 25 H 26 H Blood Pressure 105/67 140/76 116/70 Pulse Oximetry 98 95 07/26/18 12:00 07/26/18 14:00 07/26/18 14:03 Temperature Pulse Rate 82 80 97 H Respiratory Rate 16 24 20 Blood Pressure 116/70 80/41 L Pulse Oximetry 92 L 07/26/18 14:43 07/26/18 16:00 07/26/18 17:24 Temperature Pulse Rate 84 72 72 Respiratory Rate 18 18 Blood Pressure 106/81 81/63 L Pulse Oximetry 82 L 97 07/26/18 17:32 07/26/18 18:00 07/26/18 19:56 Temperature 97.9 F Pulse Rate 72 72 Respiratory Rate 27 H 19 Blood Pressure 106/61 120/58 L Pulse Oximetry 94 L 93 L 94 L 07/26/18 20:00 07/26/18 21:08 07/26/18 22:00 Temperature 97.6 F Pulse Rate 71 72 84 Respiratory Rate 18 18 Blood Pressure 120/58 L Pulse Oximetry 94 L 95 07/27/18 00:00 07/27/18 02:00 07/27/18 04:00 Temperature 98.4 F 98.6 F Pulse Rate 82 72 86 Respiratory Rate 16 16 Blood Pressure 120/66 116/82 Pulse Oximetry 93 L 07/27/18 06:00 Temperature Pulse Rate 87 Respiratory Rate Blood Pressure Pulse Oximetry Intake & Output 07/26/18 07/27/18 07/27/18 18:59 06:59 18:59 Intake Total 200 / 200 240 / 240 Output Total 1460 / 1460 Balance 200 / 200 -1220 / -1220 Weight 101.4 kg Intake: IV 200 / 200 Rocephin Inj 1,000 MG In NS Inj 200 / 200 100 ML @ 200 mls/hr IV.SIG Q24H [facility] Rx#:[id number] Oral 240 / 240 Output: Urine 1400 / 1400 Wound Drainage 60 / 60 Right Calf 60 / 60 Other: # Voids 1 # Incontinent Voids 1 Date of Last Bowel Movement 07/22/18 07/25/18 Narrative: GENERAL: Well-developed, well-nourished elderly female patient in NAD. On supplemental O2. Confused. SKIN: Warm and dry. No rash. HEAD: Normocephalic. Atraumatic. EYES: Pupils equal and round. No scleral icterus. No injection or drainage. ENT: No nasal bleeding or discharge. Mucous membranes pink and moist. NECK: Supple. Trachea midline. CARDIOVASCULAR: Irregularly irregular rhythm. RESPIRATORY: No accessory muscle use. Clear breath sounds throughout. Breath sounds equal bilaterally. GASTROINTESTINAL: Abdomen soft, non-tender, nondistended. Normoactive bowel sounds x4. MUSCULOSKELETAL: No obvious deformities. Extremities without clubbing, cyanosis. Bilateral lower extremity trace edema and right lower extremity skin tear, draining serous fluid. Improved. NEUROLOGICAL: Awake and alert, pleasantly confused. No obvious cranial nerve deficits. Motor grossly within normal limits. 4/5 muscle strength in bilateral upper and lower extremities. Results - Labs CBC & Chem 7: 07/26/18 11:15 07/26/18 11:15 Laboratory Results - last 24 hr 07/26/18 07/26/18 11:15 11:15 CBC w Diff Auto diff final WBC 8.5 RBC 3.75 L Hgb 10.3 L Hct 30.8 L MCV 82.0 MCH 27.4 MCHC 33.4 RDW 15.9 Plt Count 305 MPV 7.0 Neut % (Auto) 89.7 H Lymph % (Auto) 8.7 L Hancock % (Auto) 0.2 Eos % (Auto) 0.8 Baso % (Auto) 0.6 Neut # (Auto) 7.6 Lymph # (Auto) 0.7 L Hancock # (Auto) 0.0 Eos # (Auto) 0.1 Baso # (Auto) 0.1 WBC Differential . Differential Comment . Sodium 126 L Potassium 4.0 Chloride 87 L Carbon Dioxide 29.2 Anion Gap 10 BUN 28 H Creatinine 1.20 H Estimated GFR 42 L Random Glucose 245 H Calcium 8.2 L Assessment and Plan - Assessment (1) Chest pain in adult Code(s): R07.9 - Chest pain, unspecified Status: Acute (2) COPD with acute exacerbation Code(s): J44.1 - Chronic obstructive pulmonary disease with (acute) exacerbation Status: Acute - Plan This is an 87-year-old female patient with: COPD with exacerbation with hypoxia and need for supplemental O2 Community acquired pneumonia Respiratory acidosis with hypercapnia secondary to above. Improved. -CBC reviewed and essentially unremarkable. -CXR reviewed personally which does mention infiltrates on report although appears to be chronic findings. Will continue to monitor. -Patient is currently requiring 1LNC. Continue supplemental O2 to keep sats >92% . BIPAP as needed at night. ABG reviewed from today, much improved. Patient has symptomatically improved as well. -Continue duonebs scheduled and as needed for wheezing/sob. Continue azithromycin added ceftriaxone. -Methylprednisone IV continued and weaned today. -PT evaluation appreciated, recommendations for rehab on discharge. -CT Chest ordered and reviewed, showing pleural effusions and congestion as well as consolidation. -Pulmonary consulted, input and recommendations appreciated. -Continue to monitor and supportive care. Chest pain suspect secondary to COPD exacerbation, atypical. Improved. New onset a fib, stable. -Upon review of records there is no history of atrial fibrillation. Patient's daughter is also unaware of any history. ECHO, EF 45-50%, pulm art pressure 51mm. TSH normal. -Serial EKGs and serial troponins have been ordered for ruling out ACS purposes. Troponins flat. -EKG reviewed showing atrial fibrillation with controlled heart rate. No ST changes. -Chest pain was transient and patient unable to characterize. At time of assessment has resolved. No chest pain since presentation. -Continue to monitor cardiac rhythm. Systolic congestive heart failure in exacerbation. Improving. Moderate pulmonary hypertension -Initial CXR reviewed showing congestion and small pleural effusions. Continue to monitor. -ECHO showing mildly diminished left systolic function, EF 45-50%, pulmonary artery pressure 51mm. -Takes Lasix 20 mg PO daily. On Lasix 40 mg IV BID, will decrease to once per day. Negative fluid balance. Monitor intake and output closely. -Improving slowly. Acute on chronic hyponatremia -Na 125 on presentation. Other electrolytes normal. Awaiting labs today. -Patient takes sodium chloride tablets at home. Will continue. -Continued diuretics. DVT Prophylaxis: SCDs. Heparin. Discharge Planning: Awaiting clinical improvement. Anticipate DC tomorrow to rehab. CM assisting.
[2018-07-27] MEDS: levETIRAcetam 500 MG Tablet PO SCH ×2 (08:05→20:52)
[2018-07-27] MEDS: Atenolol 25 MG Tablet PO SCH (08:05)
[2018-07-27] MEDS: amLODIPine 5 MG Tablet PO SCH (08:07)
[2018-07-27] MEDS: Heparin - SQ 10,000 UNITS/ML Vial SQ SCH ×2 (08:07→20:52)
[2018-07-27] MEDS: Sodium Chloride 1 GM Tablet PO SCH ×2 (08:07→20:52)
[2018-07-27] MEDS: Azithromycin 250 MG Tablet PO SCH (08:09)
--- NOTE | 2018-07-27 12:58 | P.DS ---
Date of admission: 07/25/18 15:51 Primary care physician: Raul Cooper Anticipated date of discharge: 07/28/18 Brief History from admission: This is an 87-year-old female patient with a known medical history of hypertension, COPD, who presented to the ED with complaints of chest pain and shortness of breath. Patient is seen at bedside, is a very poor historian and unable to provide much addition to the medical history secondary to her dementia. Supposedly patient was getting out of the car today after going to her podiatry appointment and suddenly developed shortness of breath and right sided chest pain. Patient states "she had a weird feeling in her chest, came for a few minutes and then went away". She is unable to contribute to anymore of the characteristics of the pain. Patient is on supplemental O2 on assessment , does not use home O2. Daughter states that patient has had the common cold during the last several days, denies any recent abx use. Lives with her daughter who assists closely with her ADLs and IADLs. Patient uses a walker at home. Follows with PCP. Does not have a unit clerk. Daughter states she does not have a history of CHF or has never had an ECHO. There are no reports of fever, chills, headache, abdominal pain, nausea, vomiting, diarrhea or dysuria. DS: Diagnosis - Discharge Diagnosis (1) Chest pain in adult Status: Acute (2) COPD with acute exacerbation Status: Acute DS: Summary Hospital Course: This is an 87-year-old female patient who presented with chest pain and shortness of breath. Patient was found to have COPD with exacerbation with hypoxia and need for supplemental O2, community acquired pneumonia was well as respiratory acidosis with hypercapnia secondary to above. CBC upon presentation unremarkable. CXR showing infiltrates on report although appears to be chronic findings. Started on Ceftriaxone and Azithromycin. Patient required supplemental O2 as well as BIPAP at night. Hypercapnia resolved. ABG much improved. Was continued on duonebs scheduled and as needed. Patient was placed on IV steroids and weaned. PT saw patient with evaluation and recommendations for rehab on discharge. CT Chest showing pleural effusions and congestion as well as consolidation. Pulmonary was consulted during hospitalization. Chest pain was atypical on presentation suspect secondary to COPD exacerbation, improved and no reports of any continued chest pain all throughout hospitalization. It was noted that patient did have atrial fibrillation on EKG which was new for the patient. ECHO was done and showing EF 45-50%, pulm art pressure 51mm. TSH normal. Serial EKGs and serial troponins have been ordered for ruling out ACS purposes. Troponins flat. EKG reviewed atrial fibrillation with controlled heart rate. No ST changes. Chest pain was transient and patient unable to characterize. No chest pain since presentation. Continued on monitor to evaluate cardiac rhythm during hospitalization. Patient does have systolic congestive heart failure in exacerbation and found to have moderate pulmonary hypertension, initial CXR reviewed showing congestion and small pleural effusions, takes Lasix 20 mg PO daily. Was placed on Lasix 40 mg IV BID, decreased during hospitalization. Negative fluid balance. Diuresed well. Patient does have acute on chronic hyponatremia, na 125 on presentation. Other electrolytes normal. Patient takes sodium chloride tablets at home and was continued. Awaiting placement to rehab and clinical improvement. Should be discharged tomorrow if O2 weaned and clinical improvement seen. - Time Spent with Patient Total time spent providing and/or coordinating discharge services: Greater than 30 minutes - Quality: VTE Deep Vein Thrombosis/Pulmonary Embolism Present on Admission: No Exam Vital signs: Vital Signs 07/26/18 14:00 07/26/18 14:03 07/26/18 14:43 Temperature Pulse Rate 80 97 H 84 Respiratory Rate 24 20 18 Blood Pressure 80/41 L 106/81 Pulse Oximetry 92 L 82 L 07/26/18 16:00 07/26/18 17:24 07/26/18 17:32 Temperature 97.9 F Pulse Rate 72 72 72 Respiratory Rate 18 27 H Blood Pressure 81/63 L 106/61 Pulse Oximetry 97 94 L 07/26/18 18:00 07/26/18 19:56 07/26/18 20:00 Temperature 97.6 F Pulse Rate 72 71 Respiratory Rate 19 18 Blood Pressure 120/58 L 120/58 L Pulse Oximetry 93 L 94 L 94 L 07/26/18 21:08 07/26/18 22:00 07/27/18 00:00 Temperature 98.4 F Pulse Rate 72 84 82 Respiratory Rate 18 16 Blood Pressure 120/66 Pulse Oximetry 95 93 L 07/27/18 02:00 07/27/18 04:00 07/27/18 06:00 Temperature 98.6 F Pulse Rate 72 86 87 Respiratory Rate 16 Blood Pressure 116/82 Pulse Oximetry 07/27/18 07:30 07/27/18 08:00 07/27/18 08:03 Temperature Pulse Rate 91 H 94 H 90 Respiratory Rate 20 25 H Blood Pressure 132/74 Pulse Oximetry 100 98 98 07/27/18 09:20 07/27/18 09:46 07/27/18 10:00 Temperature Pulse Rate 82 82 82 Respiratory Rate 23 19 Blood Pressure 90/44 L 100/59 L Pulse Oximetry 92 L 94 L Intake & Output 07/26/18 07/27/18 07/27/18 18:59 06:59 18:59 Intake Total 200 / 200 240 / 240 Output Total 1460 / 1460 Balance 200 / 200 -1220 / -1220 Weight 101.4 kg Intake: IV 200 / 200 Rocephin Inj 1,000 MG In NS Inj 200 / 200 100 ML @ 200 mls/hr IV.SIG Q24H [facility] Rx#:[id number] Oral 240 / 240 Output: Urine 1400 / 1400 Wound Drainage 60 / 60 Right Calf 60 / 60 Other: # Voids 1 # Incontinent Voids 1 Date of Last Bowel Movement 07/22/18 07/25/18 07/25/18 Narrative: GENERAL: Well-developed, well-nourished elderly female patient in [facility]. On supplemental O2. Confused. SKIN: Warm and dry. No rash. HEAD: Normocephalic. Atraumatic. EYES: Pupils equal and round. No scleral icterus. No injection or drainage. ENT: No nasal bleeding or discharge. Mucous membranes pink and moist. NECK: Supple. Trachea midline. CARDIOVASCULAR: Irregularly irregular rhythm. RESPIRATORY: No accessory muscle use. Clear breath sounds throughout. Breath sounds equal bilaterally. GASTROINTESTINAL: Abdomen soft, non-tender, nondistended. Normoactive bowel sounds x4. MUSCULOSKELETAL: No obvious deformities. Extremities without clubbing, cyanosis. Bilateral lower extremity trace edema and right lower extremity skin tear, draining serous fluid. Improved. NEUROLOGICAL: Awake and alert, pleasantly confused. No obvious cranial nerve deficits. Motor grossly within normal limits. 4/5 muscle strength in bilateral upper and lower extremities. Results Procedures completed during hospitalization: See note. - Impressions ITS Impressions Chest X-Ray 07/23/18 11:51 CONCLUSION: Bibasilar patchiness consistent with possible developing infiltrates as well as minimal patchiness in the right upper lung field. Chest CT 07/25/18 00:00 CONCLUSION: 1. Moderate congestive failure with increasing interstitial edema and small bilateral pleural effusions when compared to 01/05/2018. 2. Stable pneumobilia. Head CT 07/25/18 14:28 CONCLUSION: 1. Stable appearance of the brain. . Discharge Plan - Discharge Disposition Patient Disposition: 03 Discharge to SNF - Discharge Condition Condition: Stable - Discharge Details Anticipated Discharge Date: 07/28/18 - Physicians Team Primary Care Provider: Raul Cooper Attending Provider: Alejandro Pérez Other Providers: Nishant Andino MD ; Angelique Merino
[2018-07-27 13:13] LABS: Potassium 3.9 meq/L (3.5-5.1)
[2018-07-27 13:16] LABS: Carbon Dioxide 32.1 meq/L (21.0-32.0)
--- NOTE | 2018-07-27 20:18 | P.PNPL ---
Subjective Interval history: 87 YO Wf with COPD,CHF, dementia Breathing better On NC No cough or sp No CP Physical Exam Vital signs: Vital Signs 07/26/18 21:08 07/26/18 22:00 07/27/18 00:00 Temperature 98.4 F Pulse Rate 72 84 82 Respiratory Rate 18 16 Blood Pressure 120/66 Pulse Oximetry 95 93 L 07/27/18 02:00 07/27/18 04:00 07/27/18 06:00 Temperature 98.6 F Pulse Rate 72 86 87 Respiratory Rate 16 Blood Pressure 116/82 Pulse Oximetry 07/27/18 07:30 07/27/18 08:00 07/27/18 08:03 Temperature Pulse Rate 91 H 94 H 90 Respiratory Rate 20 25 H Blood Pressure 132/74 Pulse Oximetry 100 98 98 07/27/18 09:20 07/27/18 09:46 07/27/18 10:00 Temperature Pulse Rate 82 82 82 Respiratory Rate 23 19 Blood Pressure 90/44 L 100/59 L Pulse Oximetry 92 L 94 L 07/27/18 12:00 07/27/18 13:30 07/27/18 16:00 Temperature 97.6 F 95.1 F L 96.5 F L Pulse Rate 76 84 59 L Respiratory Rate 14 22 22 Blood Pressure 100/59 L 118/35 L 114/61 Pulse Oximetry 98 93 L 92 L Intake & Output 07/27/18 07/27/18 07/28/18 06:59 18:59 06:59 Intake Total 240 / 240 100 / 100 Output Total 1460 / 1460 Balance -1220 / -1220 100 / 100 Weight 101.4 kg Intake: IV 100 / 100 Rocephin Inj 1,000 MG In NS Inj 100 / 100 100 ML @ 200 mls/hr IV.SIG Q24H [facility] Rx#:[id number] Oral 240 / 240 Output: Urine 1400 / 1400 Wound Drainage 60 / 60 Right Calf 60 / 60 Other: Date of Last Bowel Movement 07/25/18 07/25/18 GENERAL: Elderly WF, NAD SKIN: Warm and dry. HEAD: Normocephalic. EYES: No scleral icterus. No injection or drainage. NECK: Supple, trachea midline. No JVD or lymphadenopathy. CARDIOVASCULAR: Regular rate and rhythm without murmurs, gallops, or rubs. RESPIRATORY: Breath sounds equal bilaterally. No accessory muscle use. GASTROINTESTINAL: Abdomen soft, non-tender, nondistended. MUSCULOSKELETAL: No cyanosis, or edema. BACK: Nontender without obvious deformity. No CVA tenderness. Assessment and Plan - Plan IMPRESSION: COPD Exac CHF Dementia Hyponatremia PLAN: IV Solumedrol Aeroso nebs Supplement 02 Cont Abx DC plans underway
[2018-07-27 20:19] VITALS: RESP 18
[2018-07-28] MEDS: levETIRAcetam 500 MG Tablet PO SCH (09:52)
[2018-07-28] MEDS: Heparin - SQ 10,000 UNITS/ML Vial SQ SCH (09:52)
[2018-07-28] MEDS: Atenolol 25 MG Tablet PO SCH (09:53)
[2018-07-28] MEDS: Azithromycin 250 MG Tablet PO SCH (09:53)
[2018-07-28] MEDS: amLODIPine 5 MG Tablet PO SCH (09:53)
[2018-07-28] MEDS: Sodium Chloride 1 GM Tablet PO SCH (09:53)
[2018-07-28] MEDS: MethylPREDNISolone Sod Succinate Inj 40 MG/ML Vial IV.PUSH SCH (09:54)
--- NOTE | 2018-07-28 11:37 | P.DCO ---
- Physical Therapy Order: Evaluate and treat, Improve ambulation, Strength and gait training - Home Health Nursing Order: Medical education, Signs/symptoms of disease process, Nursing assessment with vital signs - Case Management Consult No - Certification I have seen patient Cata Rose on 07/28/18. My clinical findings support the need for the requested home health care services because: Limited mobility due to disease progression, Patient has SOB, Deconditioned with increased weakness I certify that my clinical findings support that this patient is homebound because: Unsteady gait/balance, Unsafe to leave home unassisted
--- NOTE | 2018-07-28 14:34 | P.PN ---
Subjective Interval history: 87-year-old female who seen in follow-up today for chest pain, shortness of breath, hypoxia. Patient is doing much better at this time. Patient was set up to be transferred to [facility] facility once arrangements are made by insurance. However, family has now decided that they want her to go home with home health care. We will need to make arrangements. Vital signs are stable, patient remains afebrile Physical Exam Vital signs: Vital Signs 07/27/18 16:00 07/27/18 19:52 07/27/18 20:00 Temperature 96.5 F L 97.4 F L Pulse Rate 59 L 74 89 Respiratory Rate 22 20 18 Blood Pressure 114/61 149/79 H Pulse Oximetry 92 L 92 L 91 L Pulse Oximetry [Resting on Room Air] Pulse Oximetry [Resting with Oxygen] 07/28/18 00:00 07/28/18 04:00 07/28/18 08:17 Temperature 98.4 F 97.0 F L Pulse Rate 93 H 90 Respiratory Rate 18 18 Blood Pressure 141/83 H 133/69 Pulse Oximetry 96 94 L 93 L Pulse Oximetry [Resting on Room Air] Pulse Oximetry [Resting with Oxygen] 07/28/18 08:37 07/28/18 12:18 07/28/18 13:40 Temperature 96.8 F L 96.7 F L Pulse Rate 83 78 Respiratory Rate 18 18 Blood Pressure 116/85 Pulse Oximetry 92 L 92 L Pulse Oximetry [Resting on Room Air] 85 L Pulse Oximetry [Resting with Oxygen] 95 Intake & Output 07/27/18 07/28/18 07/28/18 18:59 06:59 18:59 Intake Total 100 / 100 200 / 200 Output Total 300 / 300 Balance 100 / 100 -100 / -100 Weight 101.4 kg Intake: IV 100 / 100 Rocephin Inj 1,000 MG In NS Inj 100 / 100 100 ML @ 200 mls/hr IV.SIG Q24H [facility] Rx#:[id number] Oral 200 / 200 Output: Urine 300 / 300 Other: Date of Last Bowel Movement 07/25/18 Narrative: GENERAL: Well-developed, well-nourished, in no acute distress. alert and orientated HEENT: Head is normocephalic without any lesions or masses noted. Facial features are symmetric. Eyes: Extraocular muscles are intact. Conjunctivae were clear. NECK: Supple without any masses. Trachea midline no deviation. No JVD, CARDIAC: Regular rhythm, regular rate. S1/S2 are heard. 2/6 ejection murmur, no gallops or rubs. LUNGS: Clear to auscultation bilaterally. No wheeze, rhonchi or rales. No use of accessory muscles on inspiration or expiration. ABDOMEN: Soft, nontender. Nondistended. Bowel sounds heard in all 4 quadrants. No organomegaly or masses. Negative rebound, negative guarding EXTREMITIES: No edema, pulses are equal bilaterally. No cyanosis or clubbing NEUROLOGY: Mood and affect appear appropriate. Cranial nerves II through XII grossly intact. Moving all extremities, speech is clear Results - Labs CBC & Chem 7: 07/26/18 11:15 07/27/18 13:00 Assessment and Plan - Assessment (1) Physical deconditioning Code(s): R53.81 - Other malaise Status: Acute (2) COPD with acute exacerbation Code(s): J44.1 - Chronic obstructive pulmonary disease with (acute) exacerbation Status: Acute - Plan COPD with exacerbation with hypoxia and need for supplemental O2 Community acquired pneumonia Respiratory acidosis with hypercapnia secondary to above. Improved. -CBC reviewed and essentially unremarkable. -CXR reviewed personally which does mention infiltrates on report although appears to be chronic findings. Will continue to monitor. -Patient is currently requiring 1LNC. Continue supplemental O2 to keep sats >92% . BIPAP as needed at night. ABG reviewed from today, much improved. Patient has symptomatically improved as well. -Continue duonebs scheduled and as needed for wheezing/sob. Continue azithromycin added ceftriaxone. -Methylprednisone IV continued and weaned today. -PT evaluation appreciated, recommendations for rehab on discharge. -CT Chest ordered and reviewed, showing pleural effusions and congestion as well as consolidation. -Pulmonary consulted, input and recommendations appreciated. -Continue to monitor and supportive care. Chest pain suspect secondary to COPD exacerbation, atypical. Improved. New onset a fib, stable. -Upon review of records there is no history of atrial fibrillation. Patient's daughter is also unaware of any history. ECHO, EF 45-50%, pulm art pressure 51mm. TSH normal. -Serial EKGs and serial troponins have been ordered for ruling out ACS purposes. Troponins flat. -EKG reviewed showing atrial fibrillation with controlled heart rate. No ST changes. -Chest pain was transient and patient unable to characterize. At time of assessment has resolved. No chest pain since presentation. -Continue to monitor cardiac rhythm. Systolic congestive heart failure in exacerbation. Improving. Moderate pulmonary hypertension -Initial CXR reviewed showing congestion and small pleural effusions. Continue to monitor. -ECHO showing mildly diminished left systolic function, EF 45-50%, pulmonary artery pressure 51mm. -Takes Lasix 20 mg PO daily. On Lasix 40 mg IV BID, will decrease to once per day. Negative fluid balance. Monitor intake and output closely. -Improving slowly. Acute on chronic hyponatremia -Na 125 on presentation. Other electrolytes normal. Awaiting labs today. -Patient takes sodium chloride tablets at home. Will continue. -Continued diuretics. DVT Prophylaxis: SCDs. Heparin. Discharge Planning: Patient had been clinically discharge once arrangements made and authorization given by insurance.
[2018-07-28 17:16] VITALS: BP 116/70; PULSE 80; TEMP 96.9; O2SAT 93
--- NOTE | 2018-07-28 18:18 | P.PNPL ---
Subjective Interval history: 87 YO Wf with COPD,CHF, dementia Breathing better On NC No cough or sp Alert, awake, somewhat confused Watching TV Physical Exam Vital signs: Vital Signs 07/27/18 19:52 07/27/18 20:00 07/28/18 00:00 Temperature 97.4 F L 98.4 F Pulse Rate 74 89 93 H Respiratory Rate 20 18 18 Blood Pressure 149/79 H 141/83 H Pulse Oximetry 92 L 91 L 96 Pulse Oximetry [Resting on Room Air] Pulse Oximetry [Resting with Oxygen] 07/28/18 04:00 07/28/18 08:17 07/28/18 08:37 Temperature 97.0 F L 96.8 F L Pulse Rate 90 83 Respiratory Rate 18 18 Blood Pressure 133/69 116/85 Pulse Oximetry 94 L 93 L 92 L Pulse Oximetry [Resting on Room Air] Pulse Oximetry [Resting with Oxygen] 07/28/18 12:18 07/28/18 13:40 07/28/18 17:14 Temperature 96.7 F L 96.9 F L Pulse Rate 78 80 Respiratory Rate 18 18 Blood Pressure 116/70 Pulse Oximetry 92 L 93 L Pulse Oximetry [Resting on Room Air] 85 L Pulse Oximetry [Resting with Oxygen] 95 Intake & Output 07/27/18 07/28/18 07/28/18 18:59 06:59 18:59 Intake Total 100 / 100 200 / 200 900 / 900 Output Total 300 / 300 1100 / 1100 Balance 100 / 100 -100 / -100 -200 / -200 Weight 101.4 kg Intake: IV 100 / 100 100 / 100 Rocephin Inj 1,000 MG In NS Inj 100 / 100 100 / 100 100 ML @ 200 mls/hr IV.SIG Q24H [facility] Rx#:[id number] Oral 200 / 200 800 / 800 Output: Urine 300 / 300 1100 / 1100 Other: Date of Last Bowel Movement 07/25/18 GENERAL: Elderly WF,NAD SKIN: Warm and dry. HEAD: Normocephalic. EYES: No scleral icterus. No injection or drainage. NECK: Supple, trachea midline. No JVD or lymphadenopathy. CARDIOVASCULAR: Regular rate and rhythm without murmurs, gallops, or rubs. RESPIRATORY: Breath sounds equal bilaterally. No accessory muscle use. GASTROINTESTINAL: Abdomen soft, non-tender, nondistended. MUSCULOSKELETAL: No cyanosis, or edema. BACK: Nontender without obvious deformity. No CVA tenderness. Assessment and Plan - Plan IMPRESSION: COPD Exac CHF Dementia Hyponatremia PLAN: Aeroso nebs Supplement 02 Cont Abx DC Solumedrol DC plans underway
== END 2018-07-28 19:50 | disposition home or self-care (01) ==
LOC: PHED 11:33 → PHEDA 11:33 → PH3 14:55 → PHICU 16:33 → PH3 07-27 13:16
PROVIDERS: ADMIT Internal Medicine; ATTEND Internal Medicine